=== PATIENT | female | born 1950 | race Caucasian/White ===

== ENCOUNTER → 2018-11-07 11:18 | Outpatient (CLI) | payer MEDICARE, OTHER, SELFPAY ==
--- NOTE | 2018-11-07 | DI.MG.S_ITS ---
BILATERAL DIGITAL SCREENING MAMMOGRAM 3D/2D WITH CAD: 11/07/2018 CLINICAL: Routine screening. Family history of breast cancer. Comparison is made to exams dated: 09/25/2017 mammogram, 04/08/2016 mammogram, and 04/06/2015 mammogram - [facility]. There are scattered fibroglandular elements in both breasts. Current study was also evaluated with a Computer Aided Detection (CAD) system. No significant masses, calcifications, or other findings are seen in either breast. There has been no significant interval change. IMPRESSION: NEGATIVE There is no mammographic evidence of malignancy. A 1 year screening mammogram is recommended. This exam was interpreted at Station ID: [id number]. NOTE: For mammograms, a report in lay terms will be sent to the patient. Approximately 15% of breast malignancies will not be visualized mammographically. In the management of a palpable breast mass, a negative mammogram must not discourage biopsy of a clinically suspicious lesion. Electronically Signed By: Mabel karimi/gregoria:11/09/2018 08:43:29 letter sent: Normal Exam ACR BI-RADS Category 1: Negative [id number]
== END ==
PROVIDERS: Family Provider Family Medicine; PCP Family Medicine; Visit Provider Family Medicine
DX: Z12.31 Encounter for screening mammogram for malignant neoplasm of breast (principal); Z80.3 Family history of malignant neoplasm of breast
CPT/HCPCS: 77063; 77067

== ENCOUNTER → 2018-12-31 12:05 | Outpatient (CLI) | payer MEDICARE, OTHER, SELFPAY ==
--- NOTE | 2018-12-31 | DI.RAD.S_ITS ---
PROCEDURE: XR CHEST 2V INDICATIONS: Cough TECHNIQUE: 2 views of the chest were acquired. COMPARISON: [facility], , CHEST 2 VIEW, 05/24/2016, 13:40. FINDINGS: Surgical changes and devices: None. Lungs and pleura: Hyperinflation consistent with COPD. There is a linear density left lung base, compared with a parenchyma scar. Lungs are otherwise clear. No pleural effusions or pneumothorax. Mediastinum: Mediastinal contours are normal. Heart size is normal. Bones and chest wall: No suspicious bony abnormalities. Soft tissues appear unremarkable. IMPRESSION: 1. No acute cardio pulmonary disease. 2. COPD and left basilar scarring. Dictated by: Carmen Richardson M.D. on 12/31/2018 at 15:05 Approved by: Carmen Richardson M.D. on 12/31/2018 at 15:07
== END ==
PROVIDERS: Family Provider Family Medicine; PCP Family Medicine; Visit Provider Family Medicine
DX: R05 Cough (principal); J44.9 Chronic obstructive pulmonary disease, unspecified; J98.4 Other disorders of lung
CPT/HCPCS: 71046

== ENCOUNTER 2019-01-11 07:20 | Day surgery (SDC) | payer MEDICARE, OTHER, SELFPAY ==
[2019-01-11] VITALS (9 sets, daily range): BP systolic 91–134; BP diastolic 57–84; PULSE 58–91; RESP 8–18; TEMP 36.2–36.7; O2SAT 93–97; BMI 23.6
--- NOTE | 2019-01-11 07:29 | PM.HP.1 ---
History of Present Illness Date Patient Seen: 01/11/19 Time Patient Seen: 07:29 Chief complaint: [address] SCREENING COLONOSCOPY Narrative: 68yo F for surveillance colonoscopy in high risk patient. Mother of CRC. No alarm symptoms. Last scope about 5 years ago, she thinks she was supposed to come back in 3 years. Patient History Medical History (Updated 01/11/19 @ 07:57 by Deyanira Gaytan RN) Cough (Acute) Surgical History Status post appendectomy Status post colonoscopy Meds Home Medications Medication Instructions Recorded Confirmed Type Vit A/Vit B1/Vit B2/Vit C/Vi #0 11/17/11 History (#HEXAVITAMIN) alprazolam 0.125 mg PO BID PRN 01/11/19 01/11/19 History citalopram 10 mg PO DAILY 01/11/19 01/11/19 History famciclovir 2,000 mg PO 4-6XD PRN 01/11/19 01/11/19 History hydrochlorothiazide 25 mg PO DAILY 01/11/19 01/11/19 History levothyroxine 88 mcg PO DAILY 01/11/19 01/11/19 History losartan 25 mg PO DAILY 01/11/19 01/11/19 History Allergies Allergy/AdvReac Type Severity Reaction Status Date / Time latex Allergy Severe Rash Verified 01/11/19 07:57 Sulfa (Sulfonamide Allergy Unknown Doesn't Verified 01/11/19 07:57 Antibiotics) remember hydromorphone AdvReac Severe N&V Verified 01/11/19 07:57 meperidine AdvReac Severe N&V Verified 01/11/19 07:57 Review of Systems Constitutional Constitutional: Reports as per HPI Exam Narrative Exam Narrative: AAO, NAD EOMI, MMM, no scleral icterus unlabored RA soft, nt/nd MAEW visible skin dry and intact Assessment & Plan (1) Screening for colorectal cancer: Current visit: Yes Status: Acute Assessment & Plan narrative: - plan for surveillance colonoscopy in a high risk patient --> all R/B/A discussed and pt wishes to proceed
[2019-01-11] MEDS: SODIUM CHLORIDE 0.9% 1,000 ML 200 ML IV (07:55)
[2019-01-11] MEDS: ONDANSETRON 4 MG/2 ML INJ IV (08:42)
[2019-01-11] MEDS: GLUCAGON,HUMAN RECOMBINANT 1 MG/ML VIAL IV (10:33)
[2019-01-11] MEDS: MIDAZOLAM 5 MG/5 ML VIAL IV (10:33)
[2019-01-11] MEDS: fentaNYL 250 MCG/5 ML INJ IV (10:34)
--- NOTE | 2019-01-11 10:37 | PM.OP.ENDO ---
Operative Date/Time/Diagnoses Date of procedure: 01/11/19 Time of procedure: 10:37 Pre-op diagnosis: History of polyps, family history of colon cancer Post-op diagnosis: same Procedure & Clinicians Study performed: Surveillance colonoscopy in high risk patient Same procedure as scheduled: Yes Indications: 68yo F wtih a family history of CRC and a personal history of polyps on her last scope 5 years ago. No concerning symptoms. Surgeon: Fabienne Galdamez Procedure Notes SCOAP/Timeout: 944 Procedure in detail: After obtaining informed consent, the patient was brought to the GI suite and placed in the left lateral decubitus position on the examination table. After placement of appropriate monitors, the patient was given incremental doses of Fentanyl and Versed until an appropriate level of sedation was achieved. A time out was held per SCOAP protocol. A digital rectal examination was performed and did not reveal any masses or obstructing lesions. The colonoscope was gently passed into the patient's anus and the entire colon navigated to the level of the cecum with some difficulty due to a very tortuous rectum. Prep was adequate. Once in the cecum, the scope was slowly withdrawn being sure to go before and beyond all mucosal folds and prominences as able to get a thorough examination. No masses or polyps are noted. Other findings include diverticulosis. At the level of the rectal vault, the scope was retroflexed and the internal anal canal was examined. The scope was straightened and air aspirated from the colon. The instrument was removed from the patient's body and the procedure was concluded. The patient was allowed to awaken from sedation without difficulty and taken to the post-anesthesia care unit in good condition. Scope withdrawal time: 7 min Sedation minutes: 50 Findings: diverticulosis (moderate- in sigmoid colon) Specimen(s): none sent Complications: none Impression: Moderate diverticulosis Recommendations: Colonscopy in 5 years (due to family history ) and High fiber diet Follow up: as needed Disposition: PACU
--- NOTE | 2019-01-11 11:07 | SUR.PHASEI ---
1107 To OPD, arouses easily to voice, tolerating PO well. Stable/assymptomatic. Report given.
--- NOTE | 2019-01-11 11:19 | SUR.PHASEII ---
pt arrived to phase II via stretcher. pt sitting up with eyes closed, easily arousable to voice when spoken to. pt brought to bedside, reviewed dc instructions with pt and pt . no further questions or concerns voiced. abd soft and pt denies any pain/discomfort. bed in lowest position and call light given to pt.
== END 2019-01-11 11:55 | disposition home or self-care (01) ==
PROVIDERS: Family Provider Family Medicine; PCP Family Medicine; Visit Provider Surgery
PROC: 0DJD8ZZ Inspection of Lower Intestinal Tract, Via Natural or Artificial Opening Endoscopic (ICD-10-PCS; CPT 45378; principal; 2019-01-11 08:45)
DX: Z86.010 Personal history of colon polyps (principal); Z80.0 Family history of malignant neoplasm of digestive organs
CPT/HCPCS: G0105; 99152; 99153; J1610; J2250; J2405; J3010

== ENCOUNTER → 2019-01-25 17:51 | Outpatient (ROUT) | payer MEDICARE, OTHER, SELFPAY | PROVIDERS: Family Provider Family Medicine; PCP Family Medicine; Visit Provider Nurse Practitioner Family | DX: N39.0 Urinary tract infection, site not specified (principal) | CPT/HCPCS: 87077; 87086 ==

== ENCOUNTER → 2020-01-27 11:40 | Outpatient (CLI) | payer MEDICARE, OTHER, SELFPAY ==
--- NOTE | 2020-01-27 | DI.US.S_ITS ---
PROCEDURE: US PERIPH VENOUS LOW EXTREM LT INDICATIONS: PAIN LEFT LOWER LEG TECHNIQUE: Real-time imaging, as well as color and pulse Doppler interrogation, were performed of the lower extremity deep veins from the inguinal ligament to the popliteal fossa. COMPARISON: None. FINDINGS: The common femoral, femoral and popliteal veins are normally compressible, and free of intraluminal thrombus. Color and pulse Doppler demonstrate normal phasic intraluminal flow. There is normal augmentation response to distal compression maneuver. IMPRESSION: Negative for deep venous thrombosis. Dictated by: Vikas Andrews M.D. on 01/27/2020 at 11:44 Approved by: Vikas Andrews M.D. on 01/27/2020 at 11:44
== END ==
PROVIDERS: Family Provider Family Medicine; PCP Family Medicine; Referring Provider Family Medicine; Visit Provider Family Medicine
DX: M79.662 Pain in left lower leg (principal)
CPT/HCPCS: 93971

== ENCOUNTER → 2020-03-04 13:13 | Outpatient (CLI) | payer MEDICARE, OTHER, SELFPAY ==
--- NOTE | 2020-03-04 | DI.MRI.S_ITS ---
PROCEDURE: MR KNEE LT WO CON INDICATIONS: Left knee pain TECHNIQUE: Noncontrast sagittal PD fast spin echo and T2 fast spin echo with fat saturation, sagittal 3-D FLASH with fat saturation; coronal T1 spin echo and PD fast spin echo with fat saturation, and axial PD fast spin echo with fat saturation through the knee. COMPARISON: None. FINDINGS: Image quality: Excellent. Menisci: Lateral meniscus intact. Medial meniscal tear, with circumferential appearance involving the posterior root, horn, body and anterior horn. There is abnormal signal extending to the undersurface of the posterior horn, and body. There is marked truncation of the free margin. Cruciate ligaments: Anterior cruciate ligament appears mildly thickened with T2 hyperintensity. Posterior cruciate ligament appears intact. Medial structures: The medial collateral ligament appears intact. Semimembranosus tendon appears intact. Visualized portions of the pes anserinus tendons appear normal. No abnormal bursal fluid. Lateral structures: The lateral collateral ligament intact. Biceps femoris tendon appears intact. Popliteus tendon grossly unremarkable. Iliotibial band appears intact. Anterior structures: Quadriceps tendon intact. Medial and lateral patellofemoral ligaments intact. Patellar tendon appears intact. Hoffa's fat pad unremarkable. Bones and cartilage: No focal marrow contusion or discrete low signal fracture line. Within the medial compartment, diffuse partial-thickness loss of the femoral and tibial articular cartilage without focal defect. Within the lateral compartment, mild diffuse partial-thickness loss of the femoral tibial articular cartilage. Within the patellofemoral compartment, near complete thickness loss of the cartilage overlying the lateral patellar facet in some areas. There is underlying subchondral cystic change and marrow edema. Joint space: Large joint effusion No Membreno's cyst. No specific evidence of intra-articular loose body. IMPRESSION: Circumferential tear of the medial meniscus, as detailed above. Mildly thickened anterior cruciate ligament suggestive of low-grade sprain versus early mucoid degeneration Tricompartmental osteoarthritis as above Large joint effusion Dictated by: Darío Sewell M.D. on 03/06/2020 at 10:05 Approved by: Darío Sewell M.D. on 03/06/2020 at 10:14
== END ==
PROVIDERS: Family Provider Family Medicine; PCP Family Medicine; Referring Provider Family Medicine; Visit Provider Family Medicine
DX: M25.562 Pain in left knee (principal); S83.242A Other tear of medial meniscus, current injury, left knee, initial encounter; M25.462 Effusion, left knee; M17.12 Unilateral primary osteoarthritis, left knee
CPT/HCPCS: 73721

== ENCOUNTER 2020-03-06 11:15 | Outpatient (RCR) | payer MEDICARE, OTHER, SELFPAY ==
--- NOTE | 2020-02-08 18:31 | PT.OIE ---
Current Diagnoses Achilles tendinitis, left leg (02/08/20) Pain in left leg (02/08/20) Past Medical History (Last Updated 01/11/19 @ 07:57 by Deyanira Gaytan RN) Cough (Acute) Past Surgical History (Last Reviewed 01/11/19 @ 07:29 by Fabienne Galdamez MD) Status post appendectomy Status post colonoscopy Visit Care Team Role Provider Type Dominguez Powell MD Family Provider Physician Primary Care Provider Specialty: [facility] Practice Address: [address] [place] [address], [facility] Email: [email or web address] GIBSON Merino Attending Provider Advanced Job Superintendent Referring Provider Specialty: [facility] Address: [address] [place] [address], [facility] Email: [email or web address] Initial Evaluation PT-OP-A Visit Information Start: 02/08/20 12:59 Freq: Status: Active Protocol: Document 02/08/20 13:45 [facility] (Rec: 02/08/20 13:52 [facility] [id number]) Out-Patient Physical Therapy Visit Information Visit Information Visit Type Initial Evaluation Visit Start Time 13:45 Visit Stop Time 14:30 Total Visit Minutes 45 Visit Number 1 Evaluation Information Evaluation Date 02/08/20 PT-OP-B Current Condition Start: 02/08/20 12:59 Freq: Status: Active Protocol: Document 02/08/20 13:45 [facility] (Rec: 02/08/20 13:52 [facility] [id number]) Current Condition History of Current Condition Onset Date December 2019 Current Complaints left sided calf pain now moving up to her hamstring History of Current Condition Melani reports for 3.5 years she has gone to a balance class/ exercise at the [employer] and this has helped her stay active. With the covid 19 pandemic she switched to a online class on [employer]. She started noticing occasional pain in her left calf. In the last month to six weeks pain has moved up to the back of her knee and hamstring. Her left leg recently then gave out on her going up the stairs . Walking increases her pain and she really enjoys walking. She started naproxin and heat and she started to feel a little better. Walking still increases her pain. Melani reports she did have a massage last friday and this seemed to help her for at least the rest of the day. Prior Treatments and Tests A ultrasound has been done to rule out DVT Current Functional Impairments (Reported) Functional Limitations- Mobility/Gait pain in the left calf increases with walking, she has pain walking more than 2 blocks. 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 PT-OP-C Subjective Start: 02/08/20 12:59 Freq: Status: Active Protocol: Document 02/08/20 18:04 [facility] (Rec: 02/08/20 18:31 [facility] [id number]) Patient Questionnaires Lower Extremity Functional Scale LEFS Score 50 LEFS Impairment 20 to 39% Impaired (Score 48- 62) OP-PT Pain Assessment Location left posterior calf and hamstring Pain Location Details pain in the posterior left calf and hamstring Intensity 7 Scale Used Numeric (0 - 10) Home Pain Medication Use Pain Medications Used Yes Home Pain Medication Frequency Naproxin PT-OP-F Manual Assessment Start: 02/08/20 12:59 Freq: Status: Active Protocol: Document 02/08/20 18:04 [facility] (Rec: 02/08/20 18:31 [facility] [id number]) Manual Assessments Soft Tissue Assessment Soft Tissue Mobility Assessment soft tissue tightness of the popliteus muscle on the left, medial hamstring tightness and adductor tightness PT-OP-J Posture/Palpation/Skin Start: 02/08/20 12:59 Freq: Status: Active Protocol: Document 02/08/20 18:04 [facility] (Rec: 02/08/20 18:31 [facility] [id number]) Posture Evaluation Position Standing Ankle/Foot Posture (L) Pronated Palpation Assessment Location semitendonosis, semimembrenosis Palpation Location tightness at the medial hamstring distal insertions Palpation Findings Soft Tissue Tightness,Muscle Guarding,Tenderness left popliteus muscle Palpation Location tenderness and muscle guarding at the left popliteus muscle Palpation Findings Edema,Soft Tissue Tightness, Muscle Guarding,Tenderness PT-OP-K Range of Motion Start: 02/08/20 12:59 Freq: Status: Active Protocol: Document 02/08/20 18:04 [facility] (Rec: 02/08/20 18:31 [facility] [id number]) Hip Goniometric Range of Motion Hip ROM Limitations Hip ROM Limitations Soft Tissue Tightness Comments limited SLR of the left LE due to pull on the hamstring muscles, no c/o nerve pain. Knee Goniometric Range of Motion Knee Left Knee ROM WFL Yes Patient Position Supine Knee ROM Limitations Comments pain at end range knee flexion PT-OP-Q Treatments Start: 02/08/20 12:59 Freq: Status: Active Protocol: Document 02/08/20 18:04 [facility] (Rec: 02/08/20 18:31 [facility] [id number]) Therapeutic Exercises Supine Exercises 3 Supine Exercise Name pt guided in a popliteus pin and stretch Comments pt to hold the popliteus region while everting / inverting her foot 2 Supine Exercise Name supine hamstring stretch with strap from a bend knee position Side bilateral Comments pt to also pump ankle after hamstring stretch 1 Supine Exercise Name long sitting calf stretch with strap Side bilateral Reps/Minutes hold 1-2 minutes Manual Therapy Treatment Soft Tissue Mobilization 1 Body Location left calf/popliteus region Mobilization Type Myofascial Release Intensity/Depth Moderate Body Position Prone PT-OP-T Assessment and Plan Start: 02/08/20 12:59 Freq: Status: Active Protocol: Document 02/08/20 18:04 [facility] (Rec: 02/08/20 18:31 [facility] [id number]) Physical Therapy Assessment Goals Three Impairment Melani reports increased pain in her left calf when walking 2 blocks or more Retirement Goal (LTG) Melani is able to return to walking without complaints of pain 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 LTG Duration 8 weeks Two Impairment Decreased flexibility of the left popliteus, medial hamstrings, iliopsoas Retirement Goal (LTG) Melani demonstrates improved flexibility of her left calf, hamstrings, and iliopsoas with physical therapy and a home stretching program LTG Duration 8 weeks One Impairment Pain from the posterior left calf and hamstring rated 7/10 Short Term Goal (STG) Melani reports a decrease in pain from 7/10 to 3-4/10 and she is able to roll over in bed at night without pain STG Duration 4 weeks Retirement Goal (LTG) Melani reports a overall reduction in pain from 7/10 to -1/10 LTG Duration 8 weeks Assessment Summary Assessment Melani presents to physical therapy today with a new onset of left sided calf and hamstring pain. She reports she has done the same exercise program at the [facility] for over three years. When Covid [address] she began doing a online exercise program on [employer]. She notes it was going fine until she started noticing calf tightness and pain and pain behind her knee. This has slowly worsend until December when her pain increased to involved the hamstring region as well. She reports at one time she felt her knee give out on her while walking down a set of stairs. Walking has become painful and increases her symptoms. She has had a ultrasound to rule out a DVT and this was negative. Melani reports she was given naproxin and advised to use heat which has helped some. She also saw a massage therapist and this helped for a day to give her relief. With examination today left left popliteus musculature in the posterior back compartment of her left leg is very tight and guarded. She is also tight on the left side in the hamstring and hip flexors as compared to the right. I started with some MFR over the popliteus today as well as a home program for stretching. Melani notes she doesn't have a specific stretching program she does at this time. Melani tolerated treatment well today and is a good candidate for PT Physical Therapy Plan Frequency and Duration Frequency of Treatment 2x/Week Duration of Treatment 8 Plan of Care Start Date 02/08/20 Plan of Care End Date 04/04/20 Therapeutic Interventions Therapeutic Interventions Home Exercise Program, Neuromuscular Re-education, Patient/Caregiver Education, Self-Care/Home Management,Soft Tissue Mobilization,Taping, Therapeutic Exercises Next Visit Focus/Plan Next Note Type Treatment Note Next Visit Plan review pts HEP, progress stretches and manual therapy techniques
--- NOTE | 2020-02-08 18:31 | PT.OPPOC ---
Physical, Occupational & Speech Therapy At [facility] Current Diagnoses Achilles tendinitis, left leg (02/08/20) Pain in left leg (02/08/20) Visit Care Team Role Provider Type Dominguez Powell MD Family Provider Physician Primary Care Provider Specialty: [facility] Practice Address: [address] [place] [address], [place], [address] Email: [email or web address] Merino Attending Provider Advanced Residential Program Director Referring Provider Specialty: [facility] Address: [address] [place] [address], [place], [address] Email: [email or web address] Plan Of Care PT-OP-T Assessment and Plan Start: 02/08/20 12:59 Freq: Status: Active Protocol: Document 02/08/20 18:04 [facility] (Rec: 02/08/20 18:31 [facility] [id number]) Physical Therapy Assessment Goals Three Impairment Melani reports increased pain in her left calf when walking 2 blocks or more Prison Goal (LTG) Melani is able to return to walking without complaints of pain 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 LTG Duration 8 weeks Two Impairment Decreased flexibility of the left popliteus, medial hamstrings, iliopsoas Prison Goal (LTG) Melani demonstrates improved flexibility of her left calf, hamstrings, and iliopsoas with physical therapy and a home stretching program LTG Duration 8 weeks One Impairment Pain from the posterior left calf and hamstring rated 7/10 Short Term Goal (STG) Melani reports a decrease in pain from 7/10 to 3-4/10 and she is able to roll over in bed at night without pain STG Duration 4 weeks Prison Goal (LTG) Melani reports a overall reduction in pain from 7/10 to -1/10 LTG Duration 8 weeks Assessment Summary Assessment Melani presents to physical therapy today with a new onset of left sided calf and hamstring pain. She reports she has done the same exercise program at the [facility] for over three years. When Covid 19 restrictions were put in [address] she began doing a online exercise program on [employer]. She notes it was going fine until she started noticing calf tightness and pain and pain behind her knee. This has slowly worsened until December when her pain increased to involved the hamstring region as well. She reports at one time she felt her knee give out on her while walking down a set of stairs. Walking has become painful and increases her symptoms. She has had a ultrasound to rule out a DVT and this was negative. Melani reports she was given Naproxin and advised to use heat which has helped some. She also saw a massage therapist and this helped for a day to give her relief. With examination today left left popliteus musculature in the posterior back compartment of her left leg is very tight and guarded. She is also tight on the left side in the hamstring and hip flexors as compared to the right. I started with some MFR over the popliteus today as well as a home program for stretching. Melani notes she doesn't have a specific stretching program she does at this time. Melani tolerated treatment well today and is a good candidate for PT Physical Therapy Plan Frequency and Duration Frequency of Treatment 2x/Week Duration of Treatment 8 Plan of Care Start Date 02/08/20 Plan of Care End Date 04/04/20 Therapeutic Interventions Therapeutic Interventions Home Exercise Program, Neuromuscular Re-education, Patient/Caregiver Education, Self-Care/Home Management,Soft Tissue Mobilization,Taping, Therapeutic Exercises Next Visit Focus/Plan Next Note Type Treatment Note Next Visit Plan review pts HEP, progress stretches and manual therapy techniques Plan of Care Dates Plan of Care Start Date 02/08/20 Plan of Care End Date 04/04/20 Electronically Signed by: Lisette Abbott, PT 02/08/20 2917 Please Sign and Return: I have reviewed this Plan of Care and certify that the skilled therapy services above are required to meet the patient?s needs. Physician Signature Date Printed Name and Credentials Clinical Instructor Signature Printed Name and Credentials
--- NOTE | 2020-02-11 15:15 | PT.OTN ---
Current Diagnoses Achilles tendinitis, left leg (02/11/20) Pain in left leg (02/11/20) Physical Therapy Treatment Note PT-OP-A Visit Information Start: 02/08/20 12:59 Freq: Status: Active Protocol: Document 02/11/20 14:32 SP (Rec: 02/11/20 15:24 SP [id number]) Out-Patient Physical Therapy Visit Information Visit Information Visit Type Treatment Note Visit Start Time 14:35 Visit Stop Time 15:15 Total Visit Minutes 40 Visit Number 2 Number of TRACK LAYER Visits 1 PT-OP-B Current Condition Start: 02/08/20 12:59 Freq: Status: Active Protocol: Document 02/08/20 13:45 [facility] (Rec: 02/08/20 13:52 [facility] [id number]) Current Condition History of Current Condition Onset Date December 2019 Current Complaints left sided calf pain now moving up to her hamstring History of Current Condition Melani reports for 3.5 years she has gone to a balance class/ exercise at the [employer] and this has helped her stay active. With the covid 19 pandemic she switched to a online class on [employer]. She started noticing occasional pain in her left calf. In the last month to six weeks pain has moved up to the back of her knee and hamstring. Her left leg recently then gave out on her going up the stairs . Walking increases her pain and she really enjoys walking. She started naproxin and heat and she started to feel a little better. Walking still increases her pain. Melani reports she did have a massage last friday and this seemed to help her for at least the rest of the day. Prior Treatments and Tests A ultrasound has been done to rule out DVT Current Functional Impairments (Reported) Functional Limitations- Mobility/Gait pain in the left calf increases with walking, she has pain walking more than 2 blocks. 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 PT-OP-C Subjective Start: 02/08/20 12:59 Freq: Status: Active Protocol: Document 02/11/20 14:32 SP (Rec: 02/11/20 15:24 SP [id number]) OP-PT Subjective Patient Comments Patient Comments Back of the L knee little better after last tx, sore but was very helpful. Want to go over HEP and be sure doing correctly. PT-OP-F Manual Assessment Start: 02/08/20 12:59 Freq: Status: Active Protocol: Document 02/08/20 18:04 [facility] (Rec: 02/08/20 18:31 [facility] [id number]) Manual Assessments Soft Tissue Assessment Soft Tissue Mobility Assessment soft tissue tightness of the popliteus muscle on the left, medial hamstring tightness and adductor tightness PT-OP-J Posture/Palpation/Skin Start: 02/08/20 12:59 Freq: Status: Active Protocol: Document 02/08/20 18:04 [facility] (Rec: 02/08/20 18:31 [facility] [id number]) Posture Evaluation Position Standing Ankle/Foot Posture (L) Pronated Palpation Assessment Location semitendonosis, semimembrenosis Palpation Location tightness at the medial hamstring distal insertions Palpation Findings Soft Tissue Tightness,Muscle Guarding,Tenderness left popliteus muscle Palpation Location tenderness and muscle guarding at the left popliteus muscle Palpation Findings Edema,Soft Tissue Tightness, Muscle Guarding,Tenderness PT-OP-K Range of Motion Start: 02/08/20 12:59 Freq: Status: Active Protocol: Document 02/08/20 18:04 [facility] (Rec: 02/08/20 18:31 [facility] [id number]) Hip Goniometric Range of Motion Hip ROM Limitations Hip ROM Limitations Soft Tissue Tightness Comments limited SLR of the left LE due to pull on the hamstring muscles, no c/o nerve pain. Knee Goniometric Range of Motion Knee Left Knee ROM WFL Yes Patient Position Supine Knee ROM Limitations Comments pain at end range knee flexion PT-OP-Q Treatments Start: 02/08/20 12:59 Freq: Status: Active Protocol: Document 02/11/20 14:32 SP (Rec: 02/11/20 15:24 SP [id number]) Therapeutic Exercises Supine Exercises 2 Supine Exercise Name supine hamstring stretch with strap from a bend knee position Side bilateral Reps/Minutes 30sec x 2, each side Comments pt to also pump ankle after hamstring stretch 1 Supine Exercise Name long sitting calf stretch with strap Side bilateral Reps/Minutes 30sec, each side Comments pt education for stretching and holding Prone Exercises Prone L knee flexion PROM pin Reps/Minutes x10 Sitting Exercises Popliteus self-STM Sitting Exercise Name pin popliteus w/ DF/PF MWM Reps/Minutes x10 Comments cued slow movement Popliteus stretch Sitting Exercise Name Popliteus stretch, hold knees together, vishal L foot Side left Reps/Minutes 30sec x 3 Manual Therapy Treatment Soft Tissue Mobilization 1 Body Location left medial upper calf/ popliteus region Mobilization Type Cross-Friction,Myofascial Release,Sustained Pressure, Other Intensity/Depth Moderate Body Position Prone Comments Pin MWM DF/ PF with self instruction see ex. 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 LTG Duration 8 weeks Two Impairment Decreased flexibility of the left popliteus, medial hamstrings, iliopsoas [facility] Goal (LTG) Melani demonstrates improved flexibility of her left calf, hamstrings, and iliopsoas with physical therapy and a home stretching program LTG Duration 8 weeks One Impairment Pain from the posterior left calf and hamstring rated 7/10 Short Term Goal (STG) Melani reports a decrease in pain from 7/10 to 3-4/10 and she is able to roll over in bed at night without pain STG Duration 4 weeks Administrative Supervisor Goal (LTG) Melani reports a overall reduction in pain from 7/10 to -1/10 LTG Duration 8 weeks Assessment Summary Assessment Reviewed HEP today to address pt questions. Education provided for safe performance of supine hamstring stretch ( with and without ankle AROM) and long sitting gastroc stretch with TB. Pt demonstrated good understanding. L gastrocnemius and popliteus dense and tender to palpate. Added MWM popliteus release seated/long sitting and stretch. Good response to manual and self instruction for decreased tightness and muscle release. Provided hand outs, see chart for set up/recall. Physical Therapy Plan Frequency and Duration Frequency of Treatment 2x/Week Duration of Treatment 8 Plan of Care Start Date 02/08/20 Plan of Care End Date 04/04/20 Therapeutic Interventions Therapeutic Interventions Home Exercise Program, Neuromuscular Re-education, Patient/Caregiver Education, Self-Care/Home Management,Soft Tissue Mobilization,Taping, Therapeutic Exercises Next Visit Focus/Plan Next Note Type Treatment Note Next Visit Plan Assess response to HEP and added MWM manual/ self popliteus. If doing well add eccentric heel raises stretch/ AROM. Continue per PT POC: progress stretches and manual therapy techniques
--- NOTE | 2020-02-15 11:10 | PT.OTN ---
Current Diagnoses Achilles tendinitis, left leg (02/15/20) Pain in left leg (02/15/20) Physical Therapy Treatment Note PT-OP-A Visit Information Start: 02/08/20 12:59 Freq: Status: Active Protocol: Document 02/15/20 09:52 HH (Rec: 02/15/20 11:10 HH [id number]) Out-Patient Physical Therapy Visit Information Visit Information Visit Type Treatment Note Visit Start Time 09:49 Visit Stop Time 10:30 Total Visit Minutes 41 Visit Number 3 Number of WINERY WORKER Visits 0 PT-OP-B Current Condition Start: 02/08/20 12:59 Freq: Status: Active Protocol: Document 02/08/20 13:45 [facility] (Rec: 02/08/20 13:52 [facility] [id number]) Current Condition History of Current Condition Onset Date December 2019 Current Complaints left sided calf pain now moving up to her hamstring History of Current Condition Melani reports for 3.5 years she has gone to a balance class/ exercise at the [employer] and this has helped her stay active. With the covid 19 pandemic she switched to a online class on [employer]. She started noticing occasional pain in her left calf. In the last month to six weeks pain has moved up to the back of her knee and hamstring. Her left leg recently then gave out on her going up the stairs . Walking increases her pain and she really enjoys walking. She started naproxin and heat and she started to feel a little better. Walking still increases her pain. Melani reports she did have a massage last friday and this seemed to help her for at least the rest of the day. Prior Treatments and Tests A ultrasound has been done to rule out DVT Current Functional Impairments (Reported) Functional Limitations- Mobility/Gait pain in the left calf increases with walking, she has pain walking more than 2 blocks. 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 PT-OP-C Subjective Start: 02/08/20 12:59 Freq: Status: Active Protocol: Document 02/15/20 09:52 HH (Rec: 02/15/20 11:10 HH [id number]) OP-PT Subjective Patient Comments Patient Comments Im doing okay. My back of the calf still hurts PT-OP-F Manual Assessment Start: 02/08/20 12:59 Freq: Status: Active Protocol: Document 02/08/20 18:04 [facility] (Rec: 02/08/20 18:31 [facility] [id number]) Manual Assessments Soft Tissue Assessment Soft Tissue Mobility Assessment soft tissue tightness of the popliteus muscle on the left, medial hamstring tightness and adductor tightness PT-OP-J Posture/Palpation/Skin Start: 02/08/20 12:59 Freq: Status: Active Protocol: Document 02/08/20 18:04 [facility] (Rec: 02/08/20 18:31 [facility] [id number]) Posture Evaluation Position Standing Ankle/Foot Posture (L) Pronated Palpation Assessment Location semitendonosis, semimembrenosis Palpation Location tightness at the medial hamstring distal insertions Palpation Findings Soft Tissue Tightness,Muscle Guarding,Tenderness left popliteus muscle Palpation Location tenderness and muscle guarding at the left popliteus muscle Palpation Findings Edema,Soft Tissue Tightness, Muscle Guarding,Tenderness PT-OP-K Range of Motion Start: 02/08/20 12:59 Freq: Status: Active Protocol: Document 02/08/20 18:04 [facility] (Rec: 02/08/20 18:31 [facility] [id number]) Hip Goniometric Range of Motion Hip ROM Limitations Hip ROM Limitations Soft Tissue Tightness Comments limited SLR of the left LE due to pull on the hamstring muscles, no c/o nerve pain. Knee Goniometric Range of Motion Knee Left Knee ROM WFL Yes Patient Position Supine Knee ROM Limitations Comments pain at end range knee flexion PT-OP-Q Treatments Start: 02/08/20 12:59 Freq: Status: Active Protocol: Document 02/15/20 09:52 HH (Rec: 02/15/20 11:10 HH [id number]) Therapeutic Exercises Supine Exercises hip ER Supine Exercise Name with bridging Side bilateral Equipment Used yellow band Reps/Minutes 8 x2 3 Supine Exercise Name pt guided in a popliteus pin and stretch Comments pt to hold the popliteus region while everting / inverting her foot 2 Supine Exercise Name supine hamstring stretch with strap from a bend knee position Side bilateral Reps/Minutes 30sec x 2, each side Comments pt to also pump ankle after hamstring stretch Prone Exercises HS curl Prone Exercise Name HS curl after manual therapy Side left Reps/Minutes 5 x2 Comments against PT resistance but no pain noted. Standing Exercises blue foam Standing Exercise Name ankle strategy Side bilateral Reps/Minutes 2 mins Comments with extended knees, ankle board Standing Exercise Name ankle strategy Side bilateral Reps/Minutes 2 mins Comments with extended knees, A/P weight shift Standing Exercise Name staggered stance Side bilateral Comments L to push off, no pain noted Manual Therapy Treatment Soft Tissue Mobilization 1 Body Location left medial upper calf/ popliteus region Mobilization Type Cross-Friction,Myofascial Release,Sustained Pressure, Other Intensity/Depth Moderate Body Position Prone Comments Pin MWM DF/ PF with self instruction see ex. 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 Duration 8 weeks Two Impairment Decreased flexibility of the left popliteus, medial hamstrings, iliopsoas Car Checker Goal (LTG) Melani demonstrates improved flexibility of her left calf, hamstrings, and iliopsoas with physical therapy and a home stretching program LTG Duration 8 weeks One Impairment Pain from the posterior left calf and hamstring rated 7/10 Short Term Goal (STG) Melani reports a decrease in pain from 7/10 to 3-4/10 and she is able to roll over in bed at night without pain STG Duration 4 weeks Car Checker Goal (LTG) Melani reports a overall reduction in pain from 7/10 to -1/10 LTG Duration 8 weeks Assessment Summary Assessment Pt came in with pain and soreness at back of L knee and calf especially push off during gait. After manual therapy and stability training , pt was able to amb with pain free. This PT noticed pt has L hip drop with RLE stance phase. Physical Therapy Plan Next Visit Focus/Plan Next Note Type Treatment Note Next Visit Plan Assess response to HEP and added MWM manual/ self popliteus. If doing well add eccentric heel raises stretch/ AROM. Continue per PT POC: progress stretches and manual therapy techniques
--- NOTE | 2020-02-22 10:33 | PT.OTN ---
Current Diagnoses Achilles tendinitis, left leg (02/22/20) Pain in left leg (02/22/20) Physical Therapy Treatment Note PT-OP-A Visit Information Start: 02/08/20 12:59 Freq: Status: Active Protocol: Document 02/22/20 09:51 SP (Rec: 02/22/20 11:52 SP [id number]) Out-Patient Physical Therapy Visit Information Visit Information Visit Type Treatment Note Visit Note POLICE OFFICER brought patient back late. Visit Start Time 09:51 Visit Stop Time 10:33 Total Visit Minutes 42 Visit Number 4 Number of POLICE OFFICER Visits 1 PT-OP-B Current Condition Start: 02/08/20 12:59 Freq: Status: Active Protocol: Document 02/08/20 13:45 [facility] (Rec: 02/08/20 13:52 [facility] [id number]) Current Condition History of Current Condition Onset Date December 2019 Current Complaints left sided calf pain now moving up to her hamstring History of Current Condition Melani reports for 3.5 years she has gone to a balance class/ exercise at the [employer] and this has helped her stay active. With the covid 19 pandemic she switched to a online class on [employer]. She started noticing occasional pain in her left calf. In the last month to six weeks pain has moved up to the back of her knee and hamstring. Her left leg recently then gave out on her going up the stairs . Walking increases her pain and she really enjoys walking. She started naproxin and heat and she started to feel a little better. Walking still increases her pain. Melani reports she did have a massage last friday and this seemed to help her for at least the rest of the day. Prior Treatments and Tests A ultrasound has been done to rule out DVT Current Functional Impairments (Reported) Functional Limitations- Mobility/Gait pain in the left calf increases with walking, she has pain walking more than 2 blocks. 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 PT-OP-C Subjective Start: 02/08/20 12:59 Freq: Status: Active Protocol: Document 02/22/20 09:51 SP (Rec: 02/22/20 11:52 SP [id number]) OP-PT Subjective Patient Comments Patient Comments Melani stated still having deep tightness posterior and anterior L knee almost like can't fit in her skin, specially after walking. Pt stated hasn't done self massage instructed in past. PT-OP-F Manual Assessment Start: 02/08/20 12:59 Freq: Status: Active Protocol: Document 02/08/20 18:04 [facility] (Rec: 02/08/20 18:31 [facility] [id number]) Manual Assessments Soft Tissue Assessment Soft Tissue Mobility Assessment soft tissue tightness of the popliteus muscle on the left, medial hamstring tightness and adductor tightness PT-OP-J Posture/Palpation/Skin Start: 02/08/20 12:59 Freq: Status: Active Protocol: Document 02/08/20 18:04 [facility] (Rec: 02/08/20 18:31 [facility] [id number]) Posture Evaluation Position Standing Ankle/Foot Posture (L) Pronated Palpation Assessment Location semitendonosis, semimembrenosis Palpation Location tightness at the medial hamstring distal insertions Palpation Findings Soft Tissue Tightness,Muscle Guarding,Tenderness left popliteus muscle Palpation Location tenderness and muscle guarding at the left popliteus muscle Palpation Findings Edema,Soft Tissue Tightness, Muscle Guarding,Tenderness PT-OP-K Range of Motion Start: 02/08/20 12:59 Freq: Status: Active Protocol: Document 02/08/20 18:04 [facility] (Rec: 02/08/20 18:31 [facility] [id number]) Hip Goniometric Range of Motion Hip ROM Limitations Hip ROM Limitations Soft Tissue Tightness Comments limited SLR of the left LE due to pull on the hamstring muscles, no c/o nerve pain. Knee Goniometric Range of Motion Knee Left Knee ROM WFL Yes Patient Position Supine Knee ROM Limitations Comments pain at end range knee flexion PT-OP-Q Treatments Start: 02/08/20 12:59 Freq: Status: Active Protocol: Document 02/22/20 09:51 SP (Rec: 02/22/20 11:52 SP [id number]) Cardio Equipment Recumbent Elliptical ([employer]) Duration (Minutes) 2 Resistance 1 Seat Position 2 Other stopped due to tightness posterior L knee and pressure anterior swelled Recumbent Bicycle Duration (Minutes) 3 Resistance 1 Seat Position 2 Other stopped due to tightness posterior L knee and pressure anterior swelled Therapeutic Exercises Supine Exercises SLR Reps/Minutes x5 Comments >5 reps increased A/ P L knee not tolerated tightness quad set Side left Reps/Minutes 5 sec hold x5 Comments >5 reps increased A/ P L knee not tolerated tightness Standing Exercises TKE Side left Resistance Lv 2 band Reps/Minutes 2x5 Comments cued slow pacing, R glut facilitation lateral band walk Reps/Minutes 6 ft Comments stopped to uncomfortable SLS Standing Exercise Name alternate each L Side bilateral Equipment Used //bars contact as needed Reps/Minutes 20 sec Comments cued elevated rib cage, glut faciltation A/P weight shift Standing Exercise Name staggered stance Side bilateral Comments L to push off, no pain noted easy Manual Therapy Treatment Soft Tissue Mobilization 1 Body Location left medial upper gastroc/ popliteus region, distal HS Mobilization Type Cross-Friction,Myofascial Release,Sustained Pressure, Other Intensity/Depth Moderate Body Position Prone Comments Pin MWM DF/ PF with self instruction see ex. 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 Duration 8 weeks Two Impairment Decreased flexibility of the left popliteus, medial hamstrings, iliopsoas [employer] Goal (LTG) Melani demonstrates improved flexibility of her left calf, hamstrings, and iliopsoas with physical therapy and a home stretching program LTG Duration 8 weeks One Impairment Pain from the posterior left calf and hamstring rated 7/10 Short Term Goal (STG) Melani reports a decrease in pain from 7/10 to 3-4/10 and she is able to roll over in bed at night without pain STG Duration 4 weeks [employer] Goal (LTG) Melani reports a overall reduction in pain from 7/10 to -1/10 LTG Duration 8 weeks Assessment Summary Assessment Pt tolerated manual STMs to prox gastroc, popliteus and distal HS med/ lat today not pain just noticeable not relaxed. Pt reported L anterior knee skin tightness and posterior knee muscular tightness during quad set, SLR > 5 reps, did not tolerated reclined bike assessment > 2-3 min so stopped with same tightness reports. Initiated knee stabilization exercises with good tolerance, no pain or not as noticable tightness. Cued proper L knee stabilizing alignment during TKE and SLS with upright posture. Discussed with PT patient's reponse to tx and activity. Physical Therapy Plan Frequency and Duration Frequency of Treatment 2x/Week Duration of Treatment 8 Plan of Care Start Date 02/08/20 Plan of Care End Date 04/04/20 Therapeutic Interventions Therapeutic Interventions Home Exercise Program, Neuromuscular Re-education, Patient/Caregiver Education, Self-Care/Home Management,Soft Tissue Mobilization,Taping, Therapeutic Exercises Next Visit Focus/Plan Next Note Type Treatment Note Next Visit Plan Assess response to HEP: added CC L knee staibilization. Next tx review self ball STMs if good response. If doing well add eccentric heel raises stretch/AROM. Continue per PT POC: progress stretches and manual therapy techniques
--- NOTE | 2020-02-25 10:36 | PT.OTN ---
Current Diagnoses Achilles tendinitis, left leg (02/25/20) Pain in left leg (02/25/20) Physical Therapy Treatment Note PT-OP-A Visit Information Start: 02/08/20 12:59 Freq: Status: Active Protocol: Document 02/25/20 09:51 TP (Rec: 02/25/20 11:41 TP [id number]) Out-Patient Physical Therapy Visit Information Visit Information Visit Type Treatment Note Visit Note Pt goes by Melani Student GENEVA Black supervised by GENEVA Anguiano Visit Start Time 09:51 Visit Stop Time 10:36 Total Visit Minutes 45 Visit Number 5 Number of BROADCAST OPERATIONS TECHNICIAN Visits 2 PT-OP-B Current Condition Start: 02/08/20 12:59 Freq: Status: Active Protocol: Document 02/08/20 13:45 AMH (Rec: 02/08/20 13:52 AMH [id number]) Current Condition History of Current Condition Onset Date December 2019 Current Complaints left sided calf pain now moving up to her hamstring History of Current Condition Melani reports for 3.5 years she has gone to a balance class/ exercise at the [employer] and this has helped her stay active. With the covid pandemic she switched to a online class on [employer]. She started noticing occasional pain in her left calf. In the last month to six weeks pain has moved up to the back of her knee and hamstring. Her left leg recently then gave out on her going up the stairs . Walking increases her pain and she really enjoys walking. She started naproxin and heat and she started to feel a little better. Walking still increases her pain. Melani reports she did have a massage last friday and this seemed to help her for at least the rest of the day. Prior Treatments and Tests A ultrasound has been done to rule out DVT Current Functional Impairments (Reported) Functional Limitations- Mobility/Gait pain in the left calf increases with walking, she has pain walking more than 2 blocks. 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 PT-OP-C Subjective Start: 02/08/20 12:59 Freq: Status: Active Protocol: Document 02/25/20 09:51 TP (Rec: 02/25/20 11:41 TP [id number]) OP-PT Subjective Patient Comments Patient Comments Sore after last tx. Massage therapist noted swelling in L LE after last tx, as a result of TKE with TB. 8/10 pain. Tried to stay off of leg and ice which decreased pain to 6/ 10. Massage therapist also noted possible atrophy in L gastroc. PT-OP-F Manual Assessment Start: 02/08/20 12:59 Freq: Status: Active Protocol: Document 02/08/20 18:04 [facility] (Rec: 02/08/20 18:31 [facility] [id number]) Manual Assessments Soft Tissue Assessment Soft Tissue Mobility Assessment soft tissue tightness of the popliteus muscle on the left, medial hamstring tightness and adductor tightness PT-OP-J Posture/Palpation/Skin Start: 02/08/20 12:59 Freq: Status: Active Protocol: Document 02/08/20 18:04 [facility] (Rec: 02/08/20 18:31 [facility] [id number]) Posture Evaluation Position Standing Ankle/Foot Posture (L) Pronated Palpation Assessment Location semitendonosis, semimembrenosis Palpation Location tightness at the medial hamstring distal insertions Palpation Findings Soft Tissue Tightness,Muscle Guarding,Tenderness left popliteus muscle Palpation Location tenderness and muscle guarding at the left popliteus muscle Palpation Findings Edema,Soft Tissue Tightness, Muscle Guarding,Tenderness PT-OP-K Range of Motion Start: 02/08/20 12:59 Freq: Status: Active Protocol: Document 02/08/20 18:04 [facility] (Rec: 02/08/20 18:31 [facility] [id number]) Hip Goniometric Range of Motion Hip ROM Limitations Hip ROM Limitations Soft Tissue Tightness Comments limited SLR of the left LE due to pull on the hamstring muscles, no c/o nerve pain. Knee Goniometric Range of Motion Knee Left Knee ROM WFL Yes Patient Position Supine Knee ROM Limitations Comments pain at end range knee flexion PT-OP-Q Treatments Start: 02/08/20 12:59 Freq: Status: Active Protocol: Document 02/25/20 09:51 TP (Rec: 02/25/20 11:41 TP [id number]) Therapeutic Exercises Supine Exercises SAQ Supine Exercise Name SAQ with bolster Side left Equipment Used bolster Reps/Minutes x10 Comments cues for slow concentric/ eccentic contraction SLR Reps/Minutes x5 Comments CUed slow muscular control quad set Side left Reps/Minutes 5 sec hold x10 Comments Cued slow control activating and releasing Sitting Exercises LAQ Sitting Exercise Name LAQ Side left Reps/Minutes x5 Comments cues for slow concentric/ eccentric contraction Manual Therapy Treatment Soft Tissue Mobilization 1 Body Location left lateral upper gastroc/ popliteus region, distal HS Mobilization Type Cross-Friction,Myofascial Release,Sustained Pressure, Other Intensity/Depth Moderate Body Position Prone Comments Pin MWM DF/ PF for soleus. Taping basket weave Body Location L ant knee medial/lateral Treatment Focus edema mgt Type of Tape Kinesio Tape Comments Pt has allergy to latex. No latex present in Kines[employer] tape. Education for removal after 48 hours unless falling off or irritating skin. Remove slowly. 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 LTG Duration 8 weeks Two Impairment Decreased flexibility of the left popliteus, medial hamstrings, iliopsoas Budget Examiner Goal (LTG) Melani demonstrates improved flexibility of her left calf, hamstrings, and iliopsoas with physical therapy and a home stretching program LTG Duration 8 weeks One Impairment Pain from the posterior left calf and hamstring rated 7/10 Short Term Goal (STG) Melani reports a decrease in pain from 7/10 to 3-4/10 and she is able to roll over in bed at night without pain STG Duration 4 weeks Budget Examiner Goal (LTG) Melani reports a overall reduction in pain from 7/10 to -1/10 LTG Duration 8 weeks Assessment Summary Assessment Pt pain and tightness increased in L knee since previous tx 3 days ago. This tx focused on superficial- moderate myofascial release and ther ex to relieve acute pain symptoms. Pt ankles significantly inverted when relaxed with L>R. Pain has moved from medial gastroc to lateral gastroc today, perhaps as a result of over use of the L peroneals and gastroc/ soleus complex due to ankle impairments. Pt noted h/o R ankle sprains. Address acute knee pain at this tx with progression to ther ex in next txs to address muscle imbalance in L LE to improve functional mobility. Physical Therapy Plan Frequency and Duration Frequency of Treatment 2x/Week Duration of Treatment 8 Plan of Care Start Date 02/08/20 Plan of Care End Date 04/04/20 Therapeutic Interventions Therapeutic Interventions Home Exercise Program, Neuromuscular Re-education, Patient/Caregiver Education, Self-Care/Home Management,Soft Tissue Mobilization,Taping, Therapeutic Exercises Next Visit Focus/Plan Next Note Type Treatment Note Next Visit Plan Will discuss with PT response to tx activities today and outcome communication [facility] physician stated would be doing after last tx. Assess response to previous tx and HEP. Review ball STM if tolerated and beneficial. Progress knee/calf strengthening exercises depending on patient response. Assess swelling in L knee.
--- NOTE | 2020-02-29 10:05 | PT.OTN ---
Addendum entered and electronically signed by Annmarie Solorzano, ACOUSTICS TEACHER 02/29/20 10:20: Pt continues to have L med/ lat swelling pockets but has gone down since last tx. Pain free since last fri and tolerating exercises given last tx. Original Note: Current Diagnoses Achilles tendinitis, left leg (02/29/20) Pain in left leg (02/29/20) Physical Therapy Treatment Note PT-OP-A Visit Information Start: 02/08/20 12:59 Freq: Status: Active Protocol: Document 02/29/20 09:07 SP (Rec: 02/29/20 10:20 SP [id number]) Out-Patient Physical Therapy Visit Information Visit Information Visit Type Treatment Note Visit Note Pt goes by Melani Pt 7 min late today. Visit Start Time 09:07 Visit Stop Time 10:05 Total Visit Minutes 58 Visit Number 6 Number of ACOUSTICS TEACHER Visits 3 PT-OP-B Current Condition Start: 02/08/20 12:59 Freq: Status: Active Protocol: Document 02/08/20 13:45 AMH (Rec: 02/08/20 13:52 AMH [id number]) Current Condition History of Current Condition Onset Date December 2019 Current Complaints left sided calf pain now moving up to her hamstring History of Current Condition Melani reports for 3.5 years she has gone to a balance class/ exercise at the [employer] [place] and this has helped her stay active. With the covid pandemic she switched to a online class on [employer]. She started noticing occasional pain in her left calf. In the last month to six weeks pain has moved up to the back of her knee and hamstring. Her left leg recently then gave out on her going up the stairs . Walking increases her pain and she really enjoys walking. She started naproxin and heat and she started to feel a little better. Walking still increases her pain. Melani reports she did have a massage last friday and this seemed to help her for at least the rest of the day. Prior Treatments and Tests A ultrasound has been done to rule out DVT Current Functional Impairments (Reported) Functional Limitations- Mobility/Gait pain in the left calf increases with walking, she has pain walking more than 2 blocks. 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 PT-OP-C Subjective Start: 02/08/20 12:59 Freq: Status: Active Protocol: Document 02/29/20 09:07 SP (Rec: 02/29/20 10:20 SP [id number]) OP-PT Subjective Patient Comments Patient Comments Pt stated the L knee taping helped alot but only lasted 1 day, pain free since last tx. Pt would like to see how taped to do at home if needed and see if applied correctly next tx. Pt feels over whelmed with what HEP given should be doing, review/ consolidate today. PT-OP-F Manual Assessment Start: 02/08/20 12:59 Freq: Status: Active Protocol: Document 02/08/20 18:04 AMH (Rec: 02/08/20 18:31 AMH [id number]) Manual Assessments Soft Tissue Assessment Soft Tissue Mobility Assessment soft tissue tightness of the popliteus muscle on the left, medial hamstring tightness and adductor tightness PT-OP-J Posture/Palpation/Skin Start: 02/08/20 12:59 Freq: Status: Active Protocol: Document 02/08/20 18:04 AMH (Rec: 02/08/20 18:31 AMH [id number]) Posture Evaluation Position Standing Ankle/Foot Posture (L) Pronated Palpation Assessment Location semitendonosis, semimembrenosis Palpation Location tightness at the medial hamstring distal insertions Palpation Findings Soft Tissue Tightness,Muscle Guarding,Tenderness left popliteus muscle Palpation Location tenderness and muscle guarding at the left popliteus muscle Palpation Findings Edema,Soft Tissue Tightness, Muscle Guarding,Tenderness PT-OP-K Range of Motion Start: 02/08/20 12:59 Freq: Status: Active Protocol: Document 02/08/20 18:04 AMH (Rec: 02/08/20 18:31 [facility] [id number]) Hip Goniometric Range of Motion Hip ROM Limitations Hip ROM Limitations Soft Tissue Tightness Comments limited SLR of the left LE due to pull on the hamstring muscles, no c/o nerve pain. Knee Goniometric Range of Motion Knee Left Knee ROM WFL Yes Patient Position Supine Knee ROM Limitations Comments pain at end range knee flexion PT-OP-Q Treatments Start: 02/08/20 12:59 Freq: Status: Active Protocol: Document 02/29/20 09:07 SP (Rec: 02/29/20 10:20 SP [id number]) Therapeutic Exercises Supine Exercises piriformis/glut stretch Supine Exercise Name fig 4 Side bilateral Reps/Minutes 30 x2 SAQ Supine Exercise Name SAQ with bolster Side left Equipment Used bolster Reps/Minutes x10 Comments cues for slow concentric/ eccentic contraction SLR Reps/Minutes x5 Comments CUed slow muscular control quad set Side left Reps/Minutes 5 sec hold x10 Comments Cued slow control activating and releasing Sitting Exercises HS/calf stretch on chair Side left Reps/Minutes 30 sec x3 glut/piriformis stretch Sitting Exercise Name add HEP Side bilateral Reps/Minutes 30 x2 LAQ Sitting Exercise Name LAQ Side left Reps/Minutes x5 Comments cues for slow concentric/ eccentric contraction Popliteus self-STM Sitting Exercise Name if needed Comments discussed as needed for posterior knee tightness Popliteus stretch Sitting Exercise Name Popliteus stretch, hold knees together, vishal L foot Side left Reps/Minutes 30sec x 3 Comments cued knees together and foot vishal contact floor if helpful stretch Standing Exercises SLS Standing Exercise Name alternate each L Side bilateral Equipment Used contact raised table Reps/Minutes 30 sec Comments cued elevated rib cage, glut faciltation Manual Therapy Treatment Taping basket weave Body Location L ant knee medial inferior/ lateral superior patella Treatment Focus edema mgt Type of Tape Kinesio Tape Comments Pt has allergy to latex. No latex present in [employer] tape. Education for removal after 48 hours unless falling off or irritating skin. Remove slowly. 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 LTG Duration 8 weeks Two Impairment Decreased flexibility of the left popliteus, medial hamstrings, iliopsoas Auto Research Engineer Goal (LTG) Melani demonstrates improved flexibility of her left calf, hamstrings, and iliopsoas with physical therapy and a home stretching program LTG Duration 8 weeks One Impairment Pain from the posterior left calf and hamstring rated 7/10 Short Term Goal (STG) Melani reports a decrease in pain from 7/10 to 3-4/10 and she is able to roll over in bed at night without pain STG Duration 4 weeks Auto Research Engineer Goal (LTG) Melani reports a overall reduction in pain from 7/10 to -1/10 LTG Duration 8 weeks Assessment Summary Assessment Pt responded well to K taping edema mgt basket weave over L med/ lat knee, pain free rest of day and when tape fell off through the weekend. Manual in long sitting with education how to reapply at home if needed between txs. Reviewed HEP, consolidated to exercises to performed today to be completed at home. Cuing required for set up and proper form to facilitate strengthening and flexibility with improvement in demonstration. Pain free end of tx. Pt stated feels more confident. Physical Therapy Plan Frequency and Duration Frequency of Treatment 2x/Week Duration of Treatment 8 Plan of Care Start Date 02/08/20 Plan of Care End Date 04/04/20 Therapeutic Interventions Therapeutic Interventions Home Exercise Program, Neuromuscular Re-education, Patient/Caregiver Education, Self-Care/Home Management,Soft Tissue Mobilization,Taping, Therapeutic Exercises Next Visit Focus/Plan Next Note Type Treatment Note Next Visit Plan Discussed with PT response to past 2 txs with activities, PT will communicate with physician L knee swelling, response to past tx and if further assessment warranted Assess swelling in L knee and response to consolidated HEP last tx. Continue: Review ball STM if tolerated as needed. Progress knee/calf close chained strengthening exercises depending on patient response.
--- NOTE | 2020-03-01 15:49 | PT.OPPOC ---
Physical, Occupational & Speech Therapy At [facility] Current Diagnoses Achilles tendinitis, left leg (02/29/20) Pain in left leg (02/29/20) Visit Care Team Role Provider Type Dominguez Powell MD Family Provider Physician Primary Care Provider Specialty: [facility] Address: [address] [place] [address], [place], [address] Email: [email or web address] GIBSON Merino Attending Provider Advanced Linoleum Printer Referring Provider Specialty: [facility] Address: [address] [place] [address], [place], [address] Email: [email or web address] Plan Of Care PT-OP-T Assessment and Plan Start: 02/08/20 12:59 Freq: Status: Active Protocol: Document 03/01/20 15:35 [facility] (Rec: 03/01/20 15:49 [facility] [id number]) Physical Therapy Assessment Goals Three Impairment Melani reports increased pain in her left calf when walking 2 blocks or more Mcc Goal (LTG) Melani is able to return to walking without complaints of pain 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 Duration 8 weeks Two Impairment Decreased flexibility of the left popliteus, medial hamstrings, iliopsoas Mcc Goal (LTG) Melani demonstrates improved flexibility of her left calf, hamstrings, and iliopsoas with physical therapy and a home stretching program LTG Duration 8 weeks One Impairment Pain from the posterior left calf and hamstring rated 7/10 Short Term Goal (STG) Melani reports a decrease in pain from 7/10 to 3-4/10 and she is able to roll over in bed at night without pain STG Duration 4 weeks Mcc Goal (LTG) Melani reports a overall reduction in pain from 7/10 to -1/10 LTG Duration 8 weeks Progress Towards Goals Progress Towards Goals Slow Progress due to Activity Tolerance Assessment Summary Assessment Pt continues to have complaints of left sided calf pain but is also complaining of left knee tightness and pain. This seems to increase with stretches and any knee exercises. Melani responds well to K taping for edema and support. I am wondering if there is a ligamentous injury that is causing her pain. Melani has been seen for 6 visits in PT and has not shown improvement of her symptoms except for with the tape. She may benefit from further work up/diagnostic tests on her knee. Thank you. Plan of Care Dates Plan of Care Start Date 02/08/20 Plan of Care End Date 04/04/20 Electronically Signed by: Lisette Abbott, PT 03/01/20 [id number] Please Sign and Return: I have reviewed this Plan of Care and certify that the skilled therapy services above are required to meet the patient?s needs. Physician Signature Date Printed Name and Credentials Clinical Instructor Signature Printed Name and Credentials
--- NOTE | 2020-03-01 15:50 | PT.OPPN ---
Current Diagnoses Achilles tendinitis, left leg (02/29/20) Pain in left leg (02/29/20) Physical Therapy Progress Note PT-OP-A Visit Information Start: 02/08/20 12:59 Freq: Status: Active Protocol: Document 02/29/20 09:07 SP (Rec: 02/29/20 10:20 SP [id number]) Out-Patient Physical Therapy Visit Information Visit Information Visit Type Treatment Note Visit Note Pt goes by Melani Pt 7 min late today. Visit Start Time 09:07 Visit Stop Time 10:05 Total Visit Minutes 58 Visit Number 6 Number of MEASUREMENT OPERATOR Visits 3 PT-OP-B Current Condition Start: 02/08/20 12:59 Freq: Status: Active Protocol: Document 02/08/20 13:45 [facility] (Rec: 02/08/20 13:52 [facility] [id number]) Current Condition History of Current Condition Onset Date December 2019 Current Complaints left sided calf pain now moving up to her hamstring History of Current Condition Melani reports for 3.5 years she has gone to a balance class/ exercise at the [employer] and this has helped her stay active. With the covid 19 pandemic she switched to a online class on [employer]. She started noticing occasional pain in her left calf. In the last month to six weeks pain has moved up to the back of her knee and hamstring. Her left leg recently then gave out on her going up the stairs . Walking increases her pain and she really enjoys walking. She started naproxin and heat and she started to feel a little better. Walking still increases her pain. Melani reports she did have a massage last friday and this seemed to help her for at least the rest of the day. Prior Treatments and Tests A ultrasound has been done to rule out DVT Current Functional Impairments (Reported) Functional Limitations- Mobility/Gait pain in the left calf increases with walking, she has pain walking more than 2 blocks. 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 PT-OP-C Subjective Start: 02/08/20 12:59 Freq: Status: Active Protocol: Document 02/29/20 09:07 SP (Rec: 02/29/20 10:20 SP [id number]) OP-PT Subjective Patient Comments Patient Comments Pt stated the L knee taping helped alot but only lasted 1 day, pain free since last tx. Pt would like to see how taped to do at home if needed and see if applied correctly next tx. Pt feels over whelmed with what HEP given should be doing, review/ consolidate today. PT-OP-F Manual Assessment Start: 02/08/20 12:59 Freq: Status: Active Protocol: Document 02/08/20 18:04 [facility] (Rec: 02/08/20 18:31 [facility] [id number]) Manual Assessments Soft Tissue Assessment Soft Tissue Mobility Assessment soft tissue tightness of the popliteus muscle on the left, medial hamstring tightness and adductor tightness PT-OP-J Posture/Palpation/Skin Start: 02/08/20 12:59 Freq: Status: Active Protocol: Document 02/08/20 18:04 [facility] (Rec: 02/08/20 18:31 [facility] [id number]) Posture Evaluation Position Standing Ankle/Foot Posture (L) Pronated Palpation Assessment Location semitendonosis, semimembrenosis Palpation Location tightness at the medial hamstring distal insertions Palpation Findings Soft Tissue Tightness,Muscle Guarding,Tenderness left popliteus muscle Palpation Location tenderness and muscle guarding at the left popliteus muscle Palpation Findings Edema,Soft Tissue Tightness, Muscle Guarding,Tenderness PT-OP-K Range of Motion Start: 02/08/20 12:59 Freq: Status: Active Protocol: Document 02/08/20 18:04 [facility] (Rec: 02/08/20 18:31 [facility] [id number]) Hip Goniometric Range of Motion Hip ROM Limitations Hip ROM Limitations Soft Tissue Tightness Comments limited SLR of the left LE due to pull on the hamstring muscles, no c/o nerve pain. 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 LTG Duration 8 weeks Two Impairment Decreased flexibility of the left popliteus, medial hamstrings, iliopsoas Sticker Machine Operator Goal (LTG) Melani demonstrates improved flexibility of her left calf, hamstrings, and iliopsoas with physical therapy and a home stretching program LTG Duration 8 weeks One Impairment Pain from the posterior left calf and hamstring rated 7/10 Short Term Goal (STG) Melani reports a decrease in pain from 7/10 to 3-4/10 and she is able to roll over in bed at night without pain STG Duration 4 weeks Shelter Goal (LTG) Melani reports a overall reduction in pain from 7/10 to -1/10 LTG Duration 8 weeks Progress Towards Goals Progress Towards Goals Slow Progress due to Activity Tolerance Assessment Summary Assessment Pt continues to have complaints of left sided calf pain but is also complaining of left knee tightness and pain. This seems to increase with stretches and any knee exercises. Melani responds well to K taping for edema and support. I am wondering if there is a ligamentous injury that is causing her pain. Melani has been seen for 6 visits so far and has not shown improvement of her symptoms except for with the tape. She may benefit from further work up on her knee.
--- NOTE | 2020-03-03 11:20 | PT.OTN ---
Current Diagnoses Achilles tendinitis, left leg (03/03/20) Pain in left leg (03/03/20) Physical Therapy Treatment Note PT-OP-A Visit Information Start: 02/08/20 12:59 Freq: Status: Active Protocol: Document 03/03/20 10:34 SP (Rec: 03/03/20 11:58 SP [id number]) Out-Patient Physical Therapy Visit Information Visit Information Visit Type Treatment Note Visit Start Time 10:34 Visit Stop Time 11:20 Total Visit Minutes 46 Visit Number 7 Number of PACKAGING ASSOCIATE Visits 4 PT-OP-B Current Condition Start: 02/08/20 12:59 Freq: Status: Active Protocol: Document 02/08/20 13:45 [facility] (Rec: 02/08/20 13:52 [facility] [id number]) Current Condition History of Current Condition Onset Date December 2019 Current Complaints left sided calf pain now moving up to her hamstring History of Current Condition Melani reports for 3.5 years she has gone to a balance class/ exercise at the [employer] and this has helped her stay active. With the covid 19 pandemic she switched to a online class on [employer]. She started noticing occasional pain in her left calf. In the last month to six weeks pain has moved up to the back of her knee and hamstring. Her left leg recently then gave out on her going up the stairs . Walking increases her pain and she really enjoys walking. She started naproxin and heat and she started to feel a little better. Walking still increases her pain. Melani reports she did have a massage last friday and this seemed to help her for at least the rest of the day. Prior Treatments and Tests A ultrasound has been done to rule out DVT Current Functional Impairments (Reported) Functional Limitations- Mobility/Gait pain in the left calf increases with walking, she has pain walking more than 2 blocks. 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 PT-OP-C Subjective Start: 02/08/20 12:59 Freq: Status: Active Protocol: Document 03/03/20 10:34 SP (Rec: 03/03/20 11:58 SP [id number]) OP-PT Subjective Patient Comments Patient Comments Pt stated alot of L upper to mid calf tightness today than yesterday. Yesterday I did my laying/seated exercises, not stretches, before my walk. There was a little incline end of walk yesterday and noted L calf more tight at end walk than when started so did some stretching and MWM (grasp calf DF/PF movement) and no improvement little more irritated. I am frustrated calf isn't loosening up but L knee swelling is improving with basket weave Kinesiotaping and give L knee more stable support. Pt stated I am scheduled for a MRI of L leg tomorrow and hoping will give some answers. 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 PT-OP-F Manual Assessment Start: 02/08/20 12:59 Freq: Status: Active Protocol: Document 02/08/20 18:04 [facility] (Rec: 02/08/20 18:31 [facility] [id number]) Manual Assessments Soft Tissue Assessment Soft Tissue Mobility Assessment soft tissue tightness of the popliteus muscle on the left, medial hamstring tightness and adductor tightness PT-OP-J Posture/Palpation/Skin Start: 02/08/20 12:59 Freq: Status: Active Protocol: Document 02/08/20 18:04 [facility] (Rec: 02/08/20 18:31 [facility] [id number]) Posture Evaluation Position Standing Ankle/Foot Posture (L) Pronated Palpation Assessment Location semitendonosis, semimembrenosis Palpation Location tightness at the medial hamstring distal insertions Palpation Findings Soft Tissue Tightness,Muscle Guarding,Tenderness left popliteus muscle Palpation Location tenderness and muscle guarding at the left popliteus muscle Palpation Findings Edema,Soft Tissue Tightness, Muscle Guarding,Tenderness PT-OP-K Range of Motion Start: 02/08/20 12:59 Freq: Status: Active Protocol: Document 02/08/20 18:04 [facility] (Rec: 02/08/20 18:31 [facility] [id number]) Hip Goniometric Range of Motion Hip ROM Limitations Hip ROM Limitations Soft Tissue Tightness Comments limited SLR of the left LE due to pull on the hamstring muscles, no c/o nerve pain. Knee Goniometric Range of Motion Knee Left Knee ROM WFL Yes Patient Position Supine Knee ROM Limitations Comments pain at end range knee flexion PT-OP-Q Treatments Start: 02/08/20 12:59 Freq: Status: Active Protocol: Document 03/03/20 10:34 SP (Rec: 03/03/20 11:58 SP [id number]) Therapeutic Exercises Supine Exercises ankle circles Reps/Minutes x5 Comments HEP review SAQ Reps/Minutes 5 Comments HEP review SLR Reps/Minutes x5 Comments HEP review quad set Reps/Minutes 5 sec x2 Comments HEP reveiw Sidelying Exercises clamshell Side bilateral Reps/Minutes 2x5 Comments stopped due to caused discomfort in opposite LE adductor/ hip flexor, disco hip abde Sidelying Exercise Name ABD Side left Reps/Minutes x10 Comments better tolerance than clamshell, good lateral muscle challenge, no pain Sitting Exercises HS/calf stretch on chair Side left Reps/Minutes 30 sec Comments ankle relaxed so no calf stretch ok glut/piriformis stretch Side left Reps/Minutes 30 Comments HEP review LAQ Sitting Exercise Name LAQ Side left Reps/Minutes x5 Comments cues for slow concentric/ eccentric contraction Standing Exercises calf stretch Standing Exercise Name on floor and LORENZO (pt stated PT give previous tx) Reps/Minutes 30 sec Comments had increased pain in calf so stopped and instructed to discontinue hip abd Standing Exercise Name add HEP Side bilateral Equipment Used table contact for balance Reps/Minutes x10 SLS Standing Exercise Name alternate each LE Side bilateral Equipment Used contact raised table Reps/Minutes 30 sec Comments cued elevated rib cage, glut faciltation Manual Therapy Treatment Taping basket weave Body Location L ant knee medial inferior/ lateral superior patella Treatment Focus edema mgt Type of Tape Kinesio Tape Comments Pt has allergy to latex. No latex present in Kinesio tape. Education for removal after 48 hours unless falling off or irritating skin. Manual 1/2 areas, instruction through self 2nd area application. 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 LTG Duration 8 weeks Two Impairment Decreased flexibility of the left popliteus, medial hamstrings, iliopsoas Nursing Home Goal (LTG) Melani demonstrates improved flexibility of her left calf, hamstrings, and iliopsoas with physical therapy and a home stretching program LTG Duration 8 weeks One Impairment Pain from the posterior left calf and hamstring rated 7/10 Short Term Goal (STG) Melani reports a decrease in pain from 7/10 to 3-4/10 and she is able to roll over in bed at night without pain STG Duration 4 weeks Fundraising Specialist Goal (LTG) Melani reports a overall reduction in pain from 7/10 to -1/10 LTG Duration 8 weeks Assessment Summary Assessment Pt continues to have complaints of left sided calf pain. This seems to increase with stretches better tolerant of exercises did today. Instructed to stop all stretches at this time and exercises with tolerance as performed today. Melani responds well to K taping for edema and support. Added hip abd standing and sidelying with good hip abd response focus and no pain. Physical Therapy Plan Frequency and Duration Frequency of Treatment 2x/Week Duration of Treatment 8 Plan of Care Start Date 02/08/20 Plan of Care End Date 04/04/20 Therapeutic Interventions Therapeutic Interventions Home Exercise Program, Neuromuscular Re-education, Patient/Caregiver Education, Self-Care/Home Management,Soft Tissue Mobilization,Taping, Therapeutic Exercises Next Visit Focus/Plan Next Note Type Treatment Note Next Visit Plan Assess swelling in L knee and response to consolidated HEP last tx, with no stretching massage to L calf. Continue: Progress knee/calf close chained strengthening exercises depending on patient response.
--- NOTE | 2020-03-06 12:13 | PT.OTN ---
Current Diagnoses Achilles tendinitis, left leg (03/06/20) Pain in left leg (03/06/20) Physical Therapy Treatment Note PT-OP-A Visit Information Start: 02/08/20 12:59 Freq: Status: Active Protocol: Document 03/06/20 11:20 HH (Rec: 03/06/20 12:13 HH [id number]) Out-Patient Physical Therapy Visit Information Visit Information Visit Type Treatment Note Visit Note Pt had a MRI on L knee but pending for result. Visit Start Time 11:16 Visit Stop Time 12:00 Total Visit Minutes 44 Visit Number 8 Number of ASH PIT WORKER Visits 0 PT-OP-B Current Condition Start: 02/08/20 12:59 Freq: Status: Active Protocol: Document 02/08/20 13:45 [facility] (Rec: 02/08/20 13:52 AMH [id number]) Current Condition History of Current Condition Onset Date December 2019 Current Complaints left sided calf pain now moving up to her hamstring History of Current Condition Melani reports for 3.5 years she has gone to a balance class/ exercise at the [employer] and this has helped her stay active. With the covid 19 pandemic she switched to a online class on [employer]. She started noticing occasional pain in her left calf. In the last month to six weeks pain has moved up to the back of her knee and hamstring. Her left leg recently then gave out on her going up the stairs . Walking increases her pain and she really enjoys walking. She started naproxin and heat and she started to feel a little better. Walking still increases her pain. Melani reports she did have a massage last friday and this seemed to help her for at least the rest of the day. Prior Treatments and Tests A ultrasound has been done to rule out DVT Current Functional Impairments (Reported) Functional Limitations- Mobility/Gait pain in the left calf increases with walking, she has pain walking more than 2 blocks. 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 PT-OP-C Subjective Start: 02/08/20 12:59 Freq: Status: Active Protocol: Document 03/06/20 11:20 HH (Rec: 03/06/20 12:13 HH [id number]) OP-PT Subjective Patient Comments Patient Comments It has been around the same and i didnt do much stretching cause it bothers me. Patient Reported Progress Same PT-OP-F Manual Assessment Start: 02/08/20 12:59 Freq: Status: Active Protocol: Document 02/08/20 18:04 [facility] (Rec: 02/08/20 18:31 [facility] [id number]) Manual Assessments Soft Tissue Assessment Soft Tissue Mobility Assessment soft tissue tightness of the popliteus muscle on the left, medial hamstring tightness and adductor tightness PT-OP-J Posture/Palpation/Skin Start: 02/08/20 12:59 Freq: Status: Active Protocol: Document 02/08/20 18:04 [facility] (Rec: 02/08/20 18:31 [facility] [id number]) Posture Evaluation Position Standing Ankle/Foot Posture (L) Pronated Palpation Assessment Location semitendonosis, semimembrenosis Palpation Location tightness at the medial hamstring distal insertions Palpation Findings Soft Tissue Tightness,Muscle Guarding,Tenderness left popliteus muscle Palpation Location tenderness and muscle guarding at the left popliteus muscle Palpation Findings Edema,Soft Tissue Tightness, Muscle Guarding,Tenderness PT-OP-K Range of Motion Start: 02/08/20 12:59 Freq: Status: Active Protocol: Document 02/08/20 18:04 [facility] (Rec: 02/08/20 18:31 [facility] [id number]) Hip Goniometric Range of Motion Hip ROM Limitations Hip ROM Limitations Soft Tissue Tightness Comments limited SLR of the left LE due to pull on the hamstring muscles, no c/o nerve pain. Knee Goniometric Range of Motion Knee Left Knee ROM WFL Yes Patient Position Supine Knee ROM Limitations Comments pain at end range knee flexion PT-OP-Q Treatments Start: 02/08/20 12:59 Freq: Status: Active Protocol: Document 03/06/20 11:20 HH (Rec: 03/06/20 12:13 HH [id number]) Therapeutic Exercises Standing Exercises Stance phase Standing Exercise Name stance phase on L Side left Equipment Used level 1 band at L knee Reps/Minutes 10 x2 Comments cues on extended L knee during stance phase. standing TKE Side left Equipment Used level 1 band at L knee Reps/Minutes 10 x 2 Comments cues on isolated knee extension Manual Therapy Treatment Joint Mobilizations MWM Joint L knee Grade II Body Position Supine Reps/Duration 2 mins Comments knee flexion with IR Manual Traction L knee distraction. Details distal then proximal axial distraction Body Position Supine Reps/Duration 8 mins Comments pt felt relieved with distraction. 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 LTG Duration 8 weeks Two Impairment Decreased flexibility of the left popliteus, medial hamstrings, iliopsoas Structural Metal Worker Goal (LTG) Melani demonstrates improved flexibility of her left calf, hamstrings, and iliopsoas with physical therapy and a home stretching program LTG Duration 8 weeks One Impairment Pain from the posterior left calf and hamstring rated 7/10 Short Term Goal (STG) Melani reports a decrease in pain from 7/10 to 3-4/10 and she is able to roll over in bed at night without pain STG Duration 4 weeks Residential Goal (LTG) Melani reports a overall reduction in pain from 7/10 to -1/10 LTG Duration 8 weeks Assessment Summary Assessment This PT did reassessment on her L knee. Pt has L medial knee pain with valgus stress test at 0, 25 degrees , thessaly, appley and josé antonio with tibial internal rotation . This indicates possbily meniscal /MCL involvment. Her pain tends to relieve with distraction at joint line. Also noted her gait with increased L knee flexion during stance phase. Pt shows improved knee extension and reduced pain after standing TKE. Physical Therapy Plan Next Visit Focus/Plan Next Note Type Treatment Note Next Visit Plan Assess swelling in L knee and response to consolidated HEP last tx, with no stretching massage to L calf. Continue: Progress knee/calf close chained strengthening exercises depending on patient response.
--- NOTE | 2020-11-01 10:20 | PT.OPDS ---
Current Diagnoses Achilles tendinitis, left leg (03/06/20) Pain in left leg (03/06/20) Visit Care Team Role Provider Type Dominguez Powell MD Family Provider Physician Primary Care Provider Specialty: [facility] Practice Address: [address] [place] [address], [address] Email: [email or web address] Attending Provider Advanced Et[employer] Programmer Referring Provider Specialty: [facility] Address: [address] [place] [address], [facility] [place], [address] Email: [email or web address] Visit Number Visit Number 8 Discharge Summary PT-OP-B Current Condition Start: 02/08/20 12:59 Freq: Status: Active Protocol: Document 02/08/20 13:45 AMH (Rec: 02/08/20 13:52 AMH [id number]) Current Condition History of Current Condition Onset Date December 2019 Current Complaints left sided calf pain now moving up to her hamstring History of Current Condition Melani reports for 3.5 years she has gone to a balance class/ exercise at the [employer] and this has helped her stay active. With the covid 19 pandemic she switched to a online class on [employer]. She started noticing occasional pain in her left calf. In the last month to six weeks pain has moved up to the back of her knee and hamstring. Her left leg recently then gave out on her going up the stairs . Walking increases her pain and she really enjoys walking. She started naproxin and heat and she started to feel a little better. Walking still increases her pain. Melani reports she did have a massage last friday and this seemed to help her for at least the rest of the day. Prior Treatments and Tests A ultrasound has been done to rule out DVT Current Functional Impairments (Reported) Functional Limitations- Mobility/Gait pain in the left calf increases with walking, she has pain walking more than 2 blocks. 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 PT-OP-C Subjective Start: 02/08/20 12:59 Freq: Status: Active Protocol: Document 03/06/20 11:20 HH (Rec: 03/06/20 12:13 [id number]) OP-PT Subjective Patient Comments Patient Comments It has been around the same and i didnt do much stretching cause it bothers me. Patient Reported Progress Same PT-OP-F Manual Assessment Start: 02/08/20 12:59 Freq: Status: Active Protocol: Document 02/08/20 18:04 AMH (Rec: 02/08/20 18:31 [facility] [id number]) Manual Assessments Soft Tissue Assessment Soft Tissue Mobility Assessment soft tissue tightness of the popliteus muscle on the left, medial hamstring tightness and adductor tightness PT-OP-J Posture/Palpation/Skin Start: 02/08/20 12:59 Freq: Status: Active Protocol: Document 02/08/20 18:04 AMH (Rec: 02/08/20 18:31 [facility] [id number]) Posture Evaluation Position Standing Ankle/Foot Posture (L) Pronated Palpation Assessment Location semitendonosis, semimembrenosis Palpation Location tightness at the medial hamstring distal insertions Palpation Findings Soft Tissue Tightness,Muscle Guarding,Tenderness left popliteus muscle Palpation Location tenderness and muscle guarding at the left popliteus muscle Palpation Findings Edema,Soft Tissue Tightness, Muscle Guarding,Tenderness PT-OP-K Range of Motion Start: 02/08/20 12:59 Freq: Status: Active Protocol: Document 02/08/20 18:04 AMH (Rec: 02/08/20 18:31 [facility] [id number]) Hip Goniometric Range of Motion Hip ROM Limitations Hip ROM Limitations Soft Tissue Tightness Comments limited SLR of the left LE due to pull on the hamstring muscles, no c/o nerve pain. Knee Goniometric Range of Motion Knee Left Knee ROM WFL Yes Patient Position Supine Knee ROM Limitations Comments pain at end range knee flexion PT-OP-T Assessment and Plan Start: 02/08/20 12:59 Freq: Status: Active Protocol: Document 11/01/20 10:19 AMH (Rec: 11/01/20 10:20 [facility] [id number]) Physical Therapy Plan Discharge Physical Therapy Discharge Reasons No Longer Attending PT Discharge Comments Pt DC PT for further work up and MRI of her left knee
== END 2020-11-06 09:20 ==
LOC: PHYS 11:15
PROVIDERS: Family Provider Family Medicine; PCP Family Medicine; Referring Provider Internal Medicine; Visit Provider Internal Medicine
DX: M76.62 Achilles tendinitis, left leg (principal); M79.605 Pain in left leg
CPT/HCPCS: 97110; 97140; 97161

== ENCOUNTER → 2021-06-01 12:46 | Outpatient (CLI) | payer MEDICARE, OTHER, SELFPAY ==
[2021-06-01] MEDS: COVID-19 VACC #3, MRNA(MOD) 50 MCG/0.25 ML VIAL IM (12:52)
== END ==
PROVIDERS: Visit Provider Internal Medicine
DX: Z23 Encounter for immunization (principal)
CPT/HCPCS: 0013A; 91301

== ENCOUNTER → 2022-03-04 11:20 | Outpatient (CLI) | payer MEDICARE, OTHER, SELFPAY ==
--- NOTE | 2022-03-04 | DI.MG.S_ITS ---
BILATERAL DIGITAL SCREENING MAMMOGRAM 3D/2D WITH CAD: 03/04/2022 CLINICAL: Routine screening. Family history of breast cancer. Comparison is made to exams dated: 11/07/2018 mammogram, 04/08/2016 mammogram, 09/25/2017 mammogram, and 04/06/2015 mammogram - [facility]. There are scattered fibroglandular elements in both breasts. Current study was also evaluated with a Computer Aided Detection (CAD) system. No significant masses, calcifications, or other findings are seen in either breast. There has been no significant interval change. IMPRESSION: NEGATIVE There is no mammographic evidence of malignancy. A 1 year screening mammogram is recommended. Based on the Tyrer Cuzick model (a risk assessment model) the patient's lifetime risk is 9.2% and her 10 year risk is 6.4%. According to the ACR, ACS, and NCCN guidelines, an annual breast MRI exam along with mammogram is recommended if the patient's lifetime risk is 20% or greater. This exam was interpreted at Station ID: [id number]. NOTE: For mammograms, a report in lay terms will be sent to the patient. Approximately 15% of breast malignancies will not be visualized mammographically. In the management of a palpable breast mass, a negative mammogram must not discourage biopsy of a clinically suspicious lesion. Electronically Signed By: Christopher gordon/gregoria:03/04/2022 12:39:02 letter sent: Normal Exam ACR BI-RADS Category 1: Negative [id number]
== END ==
PROVIDERS: PCP Family Medicine; Referring Provider Family Medicine; Visit Provider Family Medicine
DX: Z12.31 Encounter for screening mammogram for malignant neoplasm of breast (principal); Z13.820 Encounter for screening for osteoporosis; M85.89 Other specified disorders of bone density and structure, multiple sites; Z80.3 Family history of malignant neoplasm of breast; Z78.0 Asymptomatic menopausal state; Z92.23 Personal history of estrogen therapy; Z90.710 Acquired absence of both cervix and uterus
CPT/HCPCS: 77063; 77067; 77080

== ENCOUNTER 2022-09-06 08:55 | Day surgery (SDC) | payer MEDICARE, OTHER, SELFPAY ==
--- NOTE | 2022-09-06 | PATH_ITS ---
[facility] Accession Number: [id number] No. of containers..05 Tissue . 01 Material submitted: . PART A: cecum - CECAL POLYP PART B: cecum - CECAL LESION PART C: colon - DISTAL TRANSVERSE COLON POLYP PART D: rectum - RECTAL POLYP PART E: rectum - SMALL RECTAL POLYPS X 2 . 01 Diagnosis: A. Cecal Polyp: Sessile serrated adenoma. . B. Cecal Lesion, Biopsy: Colonic mucosa with prominent benign lymphoid aggregates. Negative for serrated lesion, dysplasia or malignancy. . C. Distal Transverse Colon Polyp: Colonic mucosa with prominent benign lymphoid aggregate. Negative for serrated lesion, dysplasia or malignancy. . D. Rectal Polyp: Colonic mucosa with prominent benign lymphoid aggregate. Negative for serrated lesion, dysplasia or malignancy. . E. Rectal Polyps: Hyperplastic polyp x2. [facility] 09/12/2022 1416 Local . 01 Electronically signed: . Girish Rodriguez MD, PhD, Pathologist NPI- [id number] . 01 Gross description: . A. Received in formalin, labeled with the patient's name, , and designated cecal polyp, and consists of multiple avery soft tissue fragments aggregating to 1.6 x 1.0 x 0.1 cm. The specimen is filtered into a biopsy bag and submitted entirely in cassette A1. B. Received in formalin, labeled with the patient's name, , and designated cecal lesion, and consists of multiple avery soft tissue fragments aggregating to 1.5 x 0.5 x 0.1 cm. The specimen is filtered into a biopsy bag and submitted entirely in cassette B1. C. Received in formalin, labeled with the patient's name, , and designated distal transverse colon polyp, and consists of a single avery soft tissue fragment measuring 0.3 cm in greatest dimension. Submitted entirely in cassette C1. D. Received in formalin, labeled with the patient's name, , and designated rectal polyp, and consists of a single avery soft tissue fragment measuring 0.6 cm in greatest dimension. Submitted entirely in cassette D1. E. Received in formalin, labeled with the patient's name, , and designated small rectal polyps x2, and consists of two avery soft tissue fragments ranging from 0.2 cm to 0.3 cm in greatest dimension. Submitted entirely in cassette E1. ([id number]) /FRR 09/07/2022 1407 Local . 01 Pathologist provided ICD-10: D12.0, K62.1 . 01 CPT . 117889, 257209, 332309, [id number], [id number] Specimen Comment: A courtesy copy of this report has been sent to [facility] Performed at: 01 [facility] [address] [place] [address], [place], [place] [id number] MD Jack Staples MD Phone: [phone]
[2022-09-06 09:17] VITALS: BP 140/86; PULSE 93; RESP 20; TEMP 36.2; O2SAT 94; BMI 27.1
[2022-09-06] MEDS: LACTATED RINGERS 1,000 ML 150 ML IV (09:22)
--- NOTE | 2022-09-06 09:54 | PM.HP.1 ---
History of Present Illness History of Present Illness Chief complaint: Colonoscopy Narrative: Ms. Doyle presents today for screening colonoscopy. She explains that she is in the high-risk category and has had screening every 3 years because of that. Her last colonoscopy that I reviewed the report from was done in December of 2018. There were no polyps identified and no specimens obtained. She has a family history of colon cancer in her mother at the age of 66 from colon cancer. She denies any alarming symptoms no bleeding from below or changes in her bowel habits. She has had an appendectomy in the past that she explains went terribly ?wrong? she had multiple infections and still feels pain around the area of the scar. Otherwise she reports that she often has nausea after colonoscopies. The prep went well and she has no other questions Patient History Medical History Cough Surgical History Status post appendectomy Status post colonoscopy Family & Social History Social History: household members spouse Tobacco & Substance use: Smoking Status Former smoker alcohol intake frequency holiday/special occasion Substance Use Type does not use Meds Home Medications and Allergies Home Medications Medication Instructions Recorded Confirmed Type Vit A/Vit B1/Vit B2/Vit C/Vi ##0 11/17/11 04/07/22 History (#HEXAVITAMIN) citalopram 10 mg tablet 10 mg PO DAILY 01/11/19 09/06/22 History famciclovir 250 mg tablet 2,000 mg PO 4-6XD PRN Breakout 01/11/19 09/06/22 History hydrochlorothiazide 25 mg tablet 25 mg PO DAILY 01/11/19 09/06/22 History levothyroxine 88 mcg tablet 88 mcg PO DAILY 01/11/19 09/06/22 History losartan 25 mg tablet 25 mg PO DAILY 01/11/19 09/06/22 History Allergies Allergy/AdvReac Type Severity Reaction Status Date / Time latex Allergy Severe Rash Verified 09/06/22 09:12 Sulfa (Sulfonamide Allergy Unknown Doesn't Verified 09/06/22 09:12 Antibiotics) remember hydromorphone AdvReac Severe N&V Verified 09/06/22 09:12 meperidine AdvReac Severe N&V Verified 09/06/22 09:12 Exam Vital Signs (past 8 hours): - 09/06/22 09:17 Temperature 97.1 F L Pulse Rate 93 H Respiratory Rate 20 Blood Pressure 140/86 Pulse Oximetry 94 Oxygen Delivery Method Room Air Oxygen Delivery Method Room Air Const General: cooperative, healthy appearing and comfortable HENMT Head: normal to inspection Resp Effort & Inspection: normal respiratory effort and able to speak in complete sentences GI Palpation: soft and No tender Assessment & Plan Assessment and plan (1) Screening for colorectal cancer: Status: Acute (2) Family history of colon cancer in mother: Status: Acute Assessment & Plan narrative: I discussed the risks benefits and alternatives of a screening colonoscopy. Including but not limited to perforation of the colon and incomplete exam the patient understands these risks and would like to proceed today. Time Spent With Patient Critical Care time: I spent a total of [] minutes of critical care time on this patient's care today; this time is exclusive of procedural time.
[2022-09-06 11:07] VITALS: BP 126/76; PULSE 79; RESP 12; TEMP 36.4; O2SAT 89
[2022-09-06 11:12] VITALS: BP 122/77; PULSE 74; RESP 14; O2SAT 96
[2022-09-06 11:19] VITALS: BP 115/76; PULSE 70; RESP 12; O2SAT 95
[2022-09-06 11:24] VITALS: BP 113/71; PULSE 70; RESP 12; TEMP 36.4; O2SAT 96
--- NOTE | 2022-09-06 11:26 | PM.OP.COLON ---
Operative Date/Time/Diagnoses Date of procedure: 09/06/22 Pre-op diagnosis: High-risk colon cancer screening. Post-op diagnosis: same Procedure & Clinicians Study performed: Colonoscopy and biopsy Same procedure as scheduled: Yes Indications: High-risk for colon cancer. Surgeon: Conchis Akins Procedure Notes Procedure in detail: Patient was taken to the endoscopy suite and placed in a left lateral decubitus position. A time-out was performed. Conscious sedation was induced by an anesthesiologist. Digital rectal exam was performed and there were a few small hemorrhoidal skin tags but no masses or strictures. The colonoscope was placed into the anal canal and advanced through to the cecum. Indeed the junction between the rectum and the sigmoid was tight turn as noted in the previous endoscopy report. Otherwise there were no major difficulties in traversing the colon and a photograph was taken of the appendiceal orifice. Appendectomy was apparent. Her prep was good Pettibone bowel prep of 3. There was a cecal polyp that was snared and removed. In another location in the cecum there was a lesion which could have been a previous biopsy site but also could have been a sessile type of polyp so I biopsied this as well and sent that in a separate specimen container labeled cecal lesion. Upon withdrawal there was a 3rd small polyp in the distal transverse colon. This was removed in total with a Spotiembo biopsy forceps. There was pulsatile blood causing a mound at this biopsy site and so though the biopsy was small, I placed a clip over the biopsy site. This clip resolved bleeding and a photograph taken. Upon further withdrawal there was a proximally 0.9 mm rectal polyp which was snared and removed in total. Around this polyp there were a few smaller rectal polyps: A total of 2 small rectal polyps were biopsied with forceps and sent together. There were right-sided diverticulum photographs were taken of those and also left-sided diverticulum as well. The scope was retroflexed and a photograph was taken of hemorrhoidal piles. The patient tolerated the procedure well and went in good condition to the postoperative care unit. Findings: polyp(s) (A total of polyps and/or lesions were biopsied. ) Specimen(s): other (1. Cecal polyp 2. Cecal lesion 3. Distal transverse colon polyp 4. Rectal polyp 5. Small rectal polyps x2) Complications: none Post-procedure Recommendations: Colonoscopy in 3 years
== END 2022-09-06 11:41 | disposition home or self-care (01) ==
PROVIDERS: Family Provider Family Medicine; PCP Family Medicine; Referring Provider Surgery; Visit Provider Surgery
PROC: 0DJD8ZZ Inspection of Lower Intestinal Tract, Via Natural or Artificial Opening Endoscopic (ICD-10-PCS; CPT 45378; principal; 2022-09-06 10:00)
DX: Z12.11 Encounter for screening for malignant neoplasm of colon (principal); Z80.0 Family history of malignant neoplasm of digestive organs; K57.30 Diverticulosis of large intestine without perforation or abscess without bleeding; D12.0 Benign neoplasm of cecum; K62.1 Rectal polyp
CPT/HCPCS: 45380; J2405; J2704; J3010

== ENCOUNTER 2022-09-08 12:39 | Emergency (ER) | payer MEDICARE, OTHER, SELFPAY ==
[2022-09-08 12:52] VITALS: BP 153/72; PULSE 64; RESP 18; TEMP 36.5; O2SAT 96; BMI 27.4
[2022-09-08 13:50] LABS: Add Manual Diff / Slide Review NO; Basophils Absolute Auto 100 /uL (0-100); Basophils Percent Auto 1.2 % (0-2); Eosinophils Absolute Auto 700 /uL (0-450); Eosinophils Percent Auto 9.2 % (2-4); Hematocrit 43.1 % (36-46); Hemoglobin 15.1 g/dL (12.0-16.0); Lymphocytes Absolute Auto 2000 /uL (1100-4500); Lymphocytes Percent Auto 25.4 % (25-40); Mean Corpuscular HGB Conc 34.9 % (30-36); Mean Corpuscular Hemoglobin 31.5 PG (26-34); Mean Corpuscular Volume 90.1 fL (80-100); Monocytes Absolute Auto 600 /uL (0-900); Monocytes Percent Auto 7.3 % (3-14); Neutrophils Absolute Auto 4500 /uL (1500-7000); Neutrophils Percent Auto 56.9 % (50-75); Platelet Count 163 X10^3/uL (150-400); Red Blood Cell Count 4.79 X10^6/uL (4.0-5.2); Red Cell Distribution Width 13.3 % (11.6-14.8); White Blood Cell Count 7.8 X10^3/uL (4.5-11.0)
[2022-09-08 13:57] LABS: Alanine Aminotransferase 24 IU/L (<35); Albumin 4.1 g/dL (3.5-5.0); Albumin Globulin Ratio 1.2 (1.0-2.8); Alkaline Phosphatase 70 U/L (38-126); Aspartate Aminotransferase 33 IU/L (14-36); BUN Creatinine Ratio 21.4 (6-22); Bilirubin Total 0.5 mg/dL (0.2-1.3); Blood Urea Nitrogen 15 mg/dL (7-17); Carbon Dioxide 26 mmol/L (22-32); Chloride 103 mmol/L (98-107); Estimated Glomerular Filt Rate > 60 mL/min (>60); Globulin 3.3 g/dL (1.7-4.1); Glucose 81 mg/dL (80-110); HEMOLYSIS 58 (0-50); Lipase 265 U/L (23-300); Potassium 3.5 mmol/L (3.4-5.1); Sodium 138 mmol/L (137-145); Total Protein 7.4 g/dL (6.3-8.2)
--- NOTE | 2022-09-08 15:25 | DI.CT.S_ITS ---
PROCEDURE: CT ABDOMEN PELVIS W CON INDICATIONS: painful rectal bleeding proctocolitis? TECHNIQUE: After the administration of oral and IV contrast, axial sections were acquired from the lung bases to the pubic symphysis. Coronal and sagittal reformats were performed. For radiation dose reduction, the following was used: automated exposure control, adjustment of mA and/or kV according to patient size. COMPARISON: None. FINDINGS: Image quality: Excellent. Lung bases: Unremarkable. Heart: No significant findings. ABDOMEN: Liver: Unremarkable. Gallbladder: There is a gallstone seen within the gallbladder lumen. No additional CT findings of cholecystitis are seen. Biliary ducts: Unremarkable. Pancreas: The pancreatic duct measures at the upper limits of normal at 3 mm. No additional pancreatic abnormality can be seen. Spleen: Unremarkable. Adrenal Glands: Generalized thickening is seen of the adrenal glands, yet without focal adrenal nodules. Kidneys and Ureters: Unremarkable. Stomach and Bowel: In this patient with this given history, scrutiny is given to the distal colon. Moderate generalized wall thickening and irregularity can be seen involving the rectum. Minimal surrounding inflammatory changes are seen. Sigmoid diverticulosis is seen, without findings of active diverticulitis. The more proximal colon demonstrates no significant abnormality. No significant small bowel abnormality is seen. No significant gastric abnormality is seen. Peritoneum: No abnormal intraperitoneal fluid. No free air. Ventral Wall: No hernia. Abdominal Nodes: No retroperitoneal or mesenteric adenopathy by size criteria. Vessels: Aorta and inferior vena cava are normal in size. Atherosclerotic calcification is noted. PELVIS: Pelvic Organs: This patient is status post hysterectomy. No adnexal masses are seen. Bladder: Unremarkable. Pelvic Nodes: No enlarged lymph nodes. Miscellaneous: No inguinal hernias are seen. A right thigh lipoma is incidentally noted anteriorly, as on series 2, image 72. Bones: Focal L4-L5 degenerative change is seen. Milder degenerative changes are seen elsewhere. IMPRESSION: Generalized moderate rectal wall thickening is seen, which is consistent with the given history. Findings of perforation or abscess can be seen. Sigmoid diverticulosis is seen, without eden findings of active diverticulitis. Additional findings: Gallstone Generalized thickening of the adrenal glands. Pancreatic duct measuring at the upper limits of normal, 3 mm. Focal L4-L5 degenerative change Hysterectomy Right thigh lipoma Dictated by: Vikas Andrews M.D. on 09/08/2022 at 14:58 Approved by: Vikas Andrews M.D. on 09/08/2022 at 15:02
--- NOTE | 2022-09-08 16:26 | ED_ITS ---
HPI - Abdominal Pain <JESSICA JonesP - Last Filed: 09/08/22 17:14> General Chief Complaint: Abdominal Pain Stated Complaint: colonoscopy Fri, pain in abdomen, bleeding Time Seen by Provider: 09/08/22 15:23 Source: patient Mode of arrival: Ambulatory History of Present Illness HPI narrative: This is a 72-year-old female who presents to the emergency department complaining of increasing rectal bleeding since her colonoscopy on 09/06/2021 with well as left-sided inguinal pain and tenderness. States that she has not been taking MiraLax consistently, says that the blood was a lot more than she expected. States it is painful to have a bowel movement. Denies dysuria or urinary frequency with urgency. Denies any vaginal discharge, has a history of total hysterectomy many years ago. Denies any autoimmune disease, denies nausea vomiting, fever chills. Has a history of stress incontinence. Related Data Home Medications Medication Instructions Recorded Confirmed Vit A/Vit B1/Vit B2/Vit C/Vi ##0 11/17/11 04/07/22 (#HEXAVITAMIN) citalopram 10 mg tablet 10 mg PO DAILY 01/11/19 09/06/22 famciclovir 250 mg tablet 2,000 mg PO 4-6XD PRN Breakout 01/11/19 09/06/22 hydrochlorothiazide 25 mg tablet 25 mg PO DAILY 01/11/19 09/06/22 levothyroxine 88 mcg tablet 88 mcg PO DAILY 01/11/19 09/06/22 losartan 25 mg tablet 25 mg PO DAILY 01/11/19 09/06/22 Previous Rx's Medication Instructions Recorded hydrocortisone acetate 25 mg 25 mg RI BEDTIME PRN rectal 09/08/22 rectal suppository pain/bleeding #12 ea amoxicillin 500 mg-potassium 1 tab PO Q12H #14 tabs 09/09/22 clavulanate 125 mg tablet (Augmentin) fluconazole 150 mg tablet 150 mg PO ONCE #1 tab 09/09/22 (Diflucan) Allergies Allergy/AdvReac Type Severity Reaction Status Date / Time latex Allergy Severe Rash Verified 09/06/22 09:12 Sulfa (Sulfonamide Allergy Unknown Doesn't Verified 09/06/22 09:12 Antibiotics) remember hydromorphone AdvReac Severe N&V Verified 09/06/22 09:12 meperidine AdvReac Severe N&V Verified 09/06/22 09:12 Review of Systems <GIBSON Jones - Last Filed: 09/08/22 17:14> Review of Systems ROS Unobtainable: All systems reviewed & are unremarkable except as noted in HPI and below Patient History <GIBSON Jones - Last Filed: 09/08/22 17:14> Medical History Cough Surgical History Status post appendectomy Status post colonoscopy Social History household members: spouse Smoking Status: Former smoker Smoking Status: Former smoker alcohol intake frequency: holidays/special occasions only Substance Use Type: does not use Exam <GIBSON Jones - Last Filed: 09/08/22 17:14> Narrative Exam Narrative: Reviewed vitals signs and nursing notes. General: cooperative, comfortable, in no acute distress, well groomed HEENT: symmetrical facial expressions, moist mucous membranes Cardiovascular: regular rate and rhythm, no peripheral edema, warm extremities Respiratory: normal effort, able to speak in complete sentences, without wheezing, stridor, or abnormal breath sounds. No retractions or tachypnea. GI: abdomen soft, nontender to palpation, nondistended, without masses, rebound tenderness or exquisite tenderness with exam. No flank pain, no exquisite tenderness with abdominal exam MSK: moves all extremities, neurovascularly intact, no weakness, normal tone Skin: brisk capillary refill, without pallor or erythema Neuro: normal speech and cognition, A&O x3, ambulatory, clear speech Psych: mental status is grossly normal, congruent mood, normal affect, pleasant and cooperative Initial Vital Signs Initial Vital Signs: Vital Signs Temperature 97.7 F 09/08/22 12:52 Pulse Rate 64 09/08/22 12:52 Respiratory Rate 18 09/08/22 12:52 Blood Pressure 153/72 H 09/08/22 12:52 Pulse Oximetry 96 09/08/22 12:52 Oxygen Delivery Method 09/08/22 12:52 <Bridgett Perkins DO - Last Filed: 09/17/22 03:19> Initial Vital Signs Initial Vital Signs: Vital Signs Temperature 97.7 F 09/08/22 12:52 Pulse Rate 64 09/08/22 12:52 Respiratory Rate 18 09/08/22 12:52 Blood Pressure 153/72 H 09/08/22 12:52 Pulse Oximetry 96 09/08/22 12:52 Oxygen Delivery Method 09/08/22 12:52 Course <GIBSON Jones - Last Filed: 09/08/22 17:14> Orders Ordered: Discontinued Medications Hydrocortisone (Hydrocortisone 25 Mg Supp) 25 mg RI NOW ONE Stop: 09/08/22 16:27 Last Admin: 09/08/22 17:02 Dose: 25 mg Documented By: PHILLY Ibuprofen (Ibuprofen 400 Mg Tablet) 600 mg PO NOW ONE Stop: 09/08/22 16:27 Last Admin: 09/08/22 17:02 Dose: 600 mg Documented By: PHILLY Ondansetron HCl (Ondansetron 4 Mg Odt) 4 mg PO NOW PRN PRN Reason: Nausea And Vomiting Ondansetron HCl (Ondansetron 4 Mg/2 Ml Inj) 4 mg IV NOW PRN PRN Reason: Nausea And Vomiting Vital Signs Vital signs: Vital Signs - 8 hr 09/08/22 12:52 Temperature 97.7 F Pulse Rate 64 Respiratory Rate 18 Blood Pressure 153/72 H Pulse Oximetry 96 Oxygen Delivery Method Room Air <Bridgett Perkins DO - Last Filed: 09/17/22 03:19> Orders Ordered: Discontinued Medications Hydrocortisone (Hydrocortisone 25 Mg Supp) 25 mg RI NOW ONE Stop: 09/08/22 16:27 Last Admin: 09/08/22 17:02 Dose: 25 mg Documented By: PHILLY Ibuprofen (Ibuprofen 400 Mg Tablet) 600 mg PO NOW ONE Stop: 09/08/22 16:27 Last Admin: 09/08/22 17:02 Dose: 600 mg Documented By: PHILLY Ondansetron HCl (Ondansetron 4 Mg Odt) 4 mg PO NOW PRN PRN Reason: Nausea And Vomiting Ondansetron HCl (Ondansetron 4 Mg/2 Ml Inj) 4 mg IV NOW PRN PRN Reason: Nausea And Vomiting Vital Signs Vital signs: Vital Signs - 8 hr 09/08/22 12:52 Temperature 97.7 F Pulse Rate 64 Respiratory Rate 18 Blood Pressure 153/72 H Pulse Oximetry 96 Oxygen Delivery Method Room Air MDM - Abdominal Pain <Kiara Barron [facility] - Last Filed: 09/08/22 17:14> Lab Data 09/08/22 13:37 09/08/22 13:37 Labs: Lab Results 09/08/22 09/08/22 09/08/22 Range/Units 13:37 13:37 16:25 WBC 7.8 (4.5-11.0) X10^3/uL RBC 4.79 (4.0-5.2) X10^6/uL Hgb 15.1 (12.0-16.0) g/dL Hct 43.1 (36-46) % MCV 90.1 (80-100) fL MCH 31.5 (26-34) PG MCHC 34.9 (30-36) % RDW 13.3 (11.6-14.8) % Plt Count 163 (150-400) X10^3/uL Neut % (Auto) 56.9 (50-75) % Lymph % (Auto) 25.4 (25-40) % [place] % (Auto) 7.3 (3-14) % Eos % (Auto) 9.2 H (2-4) % Baso % (Auto) 1.2 (0-2) % Neut # (Auto) 4500 (0762-2188) /uL Lymph # (Auto) 2000 (5211-3808) /uL [place] # (Auto) 600 (0-900) /uL Eos # (Auto) 700 H (0-450) /uL Baso # (Auto) 100 (0-100) /uL Sodium 138 (137-145) mmol/L Potassium 3.5 (3.4-5.1) mmol/L Chloride 103 (98-107) mmol/L Carbon Dioxide 26 (22-32) mmol/L BUN 15 (7-17) mg/dL Creatinine 0.70 (0.52-1.04) mg/dL Estimated GFR > 60 (>60) mL/min BUN/Creatinine Ratio 21.4 (6-22) Glucose 81 (80-110) mg/dL Calcium 9.0 (8.4-10.2) mg/dL Total Bilirubin 0.5 (0.2-1.3) mg/dL AST 33 (14-36) IU/L ALT 24 (<35) IU/L Alkaline Phosphatase 70 (38-126) U/L Total Protein 7.4 (6.3-8.2) g/dL Albumin 4.1 (3.5-5.0) g/dL Globulin 3.3 (1.7-4.1) g/dL Albumin/Globulin Ratio 1.2 (1.0-2.8) Lipase 265 (23-300) U/L Urine RBC 0-1/hpf (0-5/HPF) Urine WBC None seen (0-5/HPF) Urine Bacteria None seen (None) Ur Culture Indicated? Cult not indicated Point of care testing: Urine Dip Bedside Urine Glucose Negative Bedside Urine Bilirubin - Negative Bedside Urine Ketone - Negative Urine Specific [place] 1.005 Bedside Urine Occult Blood + Bedside Urine pH 6.0 Bedside Urine Protein - Negative Bedside Urine Urobilinogen - Negative Bedside Urine Nitrite - Negative Bedside Urine Leukocytes - Negative Esterase Imaging Data CT scan - abdomen/pelvis: Radiologist's Impression: ADDENDUMThis report includes an Addendum and supersedes previous reports for this exam. ? ? ? PROCEDURE:? CT ABDOMEN PELVIS W CON ? INDICATIONS:? painful rectal bleeding proctocolitis? ? TECHNIQUE:? After the administration of oral and IV contrast, axial sections were acquired from the lung bases to the pubic symphysis.? Coronal and sagittal reformats were performed.? For radiation dose reduction, the following was used:? automated exposure control, adjustment of mA and/or kV according to patient size. ? COMPARISON:? None. ? FINDINGS:? Image quality:? Excellent.? ? Lung bases:? Unremarkable.? ? Heart:? No significant findings. ? ? ABDOMEN: Liver:? Unremarkable.? ? Gallbladder:? There is a gallstone seen within the gallbladder lumen.? No additional CT findings of cholecystitis are seen.? ? Biliary ducts:? Unremarkable.? ? Pancreas:? The pancreatic duct measures at the upper limits of normal at 3 mm.? No additional pancreatic abnormality can be seen. Spleen:? Unremarkable.? ? Adrenal Glands:? Generalized thickening is seen of the adrenal glands, yet without focal adrenal nodules. Kidneys and Ureters:? Unremarkable.? ? ? Stomach and Bowel: In this patient with this given history, scrutiny is given to the distal colon.? Moderate generalized wall thickening and irregularity can be seen involving the rectum.? Minimal surrounding inflammatory changes are seen. Sigmoid diverticulosis is seen, without findings of active diverticulitis. The more proximal colon demonstrates no significant abnormality. No significant small bowel abnormality is seen. No significant gastric abnormality is seen. Peritoneum:? No abnormal intraperitoneal fluid.? No free air.? ? Ventral Wall: ? No hernia.? Abdominal Nodes:? No retroperitoneal or mesenteric adenopathy by size criteria.? Vessels:? Aorta and inferior vena cava are normal in size.? Atherosclerotic calcification is noted.? ? PELVIS: Pelvic Organs: This patient is status post hysterectomy. No adnexal masses are seen.? Bladder:? Unremarkable.? ? Pelvic Nodes: No enlarged lymph nodes.? Miscellaneous: No inguinal hernias are seen.? ? A right thigh lipoma is incidentally noted anteriorly, as on series 2, image 72. ? Bones:? Focal L4-L5 degenerative change is seen.? Milder degenerative changes are seen elsewhere.? ? ? IMPRESSION:? ? Generalized moderate rectal wall thickening is seen, which is consistent with the given history. ? No findings of perforation or abscess can be seen. ? Sigmoid diverticulosis is seen, without eden findings of active diverticulitis. ? Additional findings:? Gallstone Generalized thickening of the adrenal glands.? Pancreatic duct measuring at the upper limits of normal, 3 mm. Focal L4-L5 degenerative change Hysterectomy Right thigh lipoma ? Dictated by: Vikas Andrews M.D. on 09/08/2022 at 14:58 ? ? Approved by: Vikas Andrews M.D. on 09/08/2022 at 15:02 ? ? ? ADDENDUM: ? ? Report corrected and underlined above.? ? Note: Contents of this addendum discussed by telephone between Dr. Richardson and SATISH hernadez. ? Dictated by: Vikas Andrews M.D. on 09/08/2022 at 15:46 ? ? Approved by: Vikas Andrews M.D. on 09/08/2022 at 15:46 ? Addendum Dictated By: Vikas Andrews MD Addendum Signed By: Addendum Cosigned By: DD/ TD/TT: 09/08/22 PROCEDURE:? CT ABDOMEN PELVIS W CON ? INDICATIONS:? painful rectal bleeding proctocolitis? ? TECHNIQUE:? After the administration of oral and IV contrast, axial sections were acquired from the lung bases to the pubic symphysis.? Coronal and sagittal reformats were p erformed.? For radiation dose reduction, the following was used:? automated exposure control, adjustment of mA and/or kV according to patient size. ? COMPARISON:? None. ? FINDINGS:? Image quality:? Excellent.? ? Lung bases:? Unremarkable.? ? Heart:? No significant findings. ? ? ABDOMEN: Liver:? Unremarkable.? ? Gallbladder:? There is a gallstone seen within the gallbladder lumen.? No additional CT findings of cholecystitis are seen.? ? Biliary ducts:? Unremarkable.? ? Pancreas:? The pancreatic duct measures at the upper limits of normal at 3 mm.? No additional pancreatic abnormality can be seen. Spleen:? Unremarkable.? ? Adrenal Glands:? Generalized thickening is seen of the adrenal glands, yet without focal adrenal nodules. Kidneys and Ureters:? Unremarkable.? ? ? Stomach and Bowel: In this patient with this given history, scrutiny is given to the distal colon.? Moderate generalized wall thickening and irregularity can be seen involving the rectum.? Minimal surrounding inflammatory changes are seen. Sigmoid diverticulosis is seen, without findings of active diverticulitis. The more proximal colon demonstrates no significant abnormality. No significant small bowel abnormality is seen. No significant gastric abnormality is seen. Peritoneum:? No abnormal intraperitoneal fluid.? No free air.? ? Ventral Wall: ? No hernia.? Abdominal Nodes:? No retroperitoneal or mesenteric adenopathy by size criteria.? Vessels:? Aorta and inferior vena cava are normal in size.? Atherosclerotic ca lcification is noted.? ? PELVIS: Pelvic Organs: This patient is status post hysterectomy. No adnexal masses are seen.? Bladder:? Unremarkable.? ? Pelvic Nodes: No enlarged lymph nodes.? Miscellaneous: No inguinal hernias are seen.? ? A right thigh lipoma is incidentally noted anteriorly, as on series 2, image 72. ? Bones:? Focal L4-L5 degenerative change is seen.? Milder degenerative changes are seen elsewhere.? ? ? IMPRESSION:? ? Generalized moderate rectal wall thickening is seen, which is consistent with the given history. ? Findings of perforation or abscess can be seen. ? Sigmoid diverticulosis is seen, without eden findings of active diverticulitis. ? Additional findings:? Gallstone Generalized thickening of the adrenal glands.? Pancreatic duct measuring at the upper limits of normal, 3 mm. Focal L4-L5 degenerative change Hysterectomy Right thigh lipoma ? Dictated by: Vikas Andrews M.D. on 09/08/2022 at 14:58 ? ? Approved by: Vikas Andrews M.D. on 09/08/2022 at 15:02 ? MDM Narrative Medical decision making narrative: Chief Complaint: Increased rectal bleeding with left lower quadrant/pelvic pain Independent historian: Patient Differential diagnoses include but are not limited to: Rectal inflammation,, proctocolitis, acute cystitis, nephrolithiasis, urinary tract infection I have independently reviewed the patient's vital signs and nursing notes as well as prior records if available. Pertinent lab findings reviewed:, no leukocytosis or anemia, no left shift, no electrolyte abnormalities, lipase is 265, UA is negative for RBCs, WBCs and bacteria on microscopy Pertinent Imaging reviewed: CT abdomen and pelvis with contrast shows rectal wall thickening and irregularity consistent with inflammation, no inflammatory changes seen to the more proximal colon, no diverticulitis, no free air no enlarged lymph nodes ( initially patient's CT scan had a typo stating findings of perforation or abscess can be seen, this was clarified with on-call radiologist who read the CT scan and does not see findings of perforation or abscess, he will make an addendum on this report* edited the CT abdomen report with new addendum) Clinical decision rules or scores evaluated: Patient's UA is negative for infection will treat supportively with rectal suppositories of hydrocortisone, patient will follow-up with Dr. Akins tomorrow and week day. She does not have evidence of anemia and her bleeding has slowed down, encouraged her to use ibuprofen as needed for pain and inflammation, return for worsening pain, fever chills, or other complications. Social considerations that may affect disposition: none Questions are addressed and there is agreement with the plan and for follow-up. Patient is appropriate for outpatient management. MIPS: This encounter doesn't have any diagnosis' associated with MIPS criteria. Return precautions discussed with patient/family whom verbalize understanding of diagnosis and plan <Bridgett Perkins, - Last Filed: 09/17/22 03:19> Lab Data Labs: Lab Results 09/08/22 09/08/22 09/08/22 Range/Units 13:37 13:37 16:25 WBC 7.8 (4.5-11.0) X10^3/uL RBC 4.79 (4.0-5.2) X10^6/uL Hgb 15.1 (12.0-16.0) g/dL Hct 43.1 (36-46) % MCV 90.1 (80-100) fL MCH 31.5 (26-34) PG MCHC 34.9 (30-36) % RDW 13.3 (11.6-14.8) % Plt Count 163 (150-400) X10^3/uL Neut % (Auto) 56.9 (50-75) % Lymph % (Auto) 25.4 (25-40) % [place] % (Auto) 7.3 (3-14) % Eos % (Auto) 9.2 H (2-4) % Baso % (Auto) 1.2 (0-2) % Neut # (Auto) 4500 (0742-8884) /uL Lymph # (Auto) 2000 (7554-0275) /uL [place] # (Auto) 600 (0-900) /uL Eos # (Auto) 700 H (0-450) /uL Baso # (Auto) 100 (0-100) /uL Sodium 138 (137-145) mmol/L Potassium 3.5 (3.4-5.1) mmol/L Chloride 103 (98-107) mmol/L Carbon Dioxide 26 (22-32) mmol/L BUN 15 (7-17) mg/dL Creatinine 0.70 (0.52-1.04) mg/dL Estimated GFR > 60 (>60) mL/min BUN/Creatinine Ratio 21.4 (6-22) Glucose 81 (80-110) mg/dL Calcium 9.0 (8.4-10.2) mg/dL Total Bilirubin 0.5 (0.2-1.3) mg/dL AST 33 (14-36) IU/L ALT 24 (<35) IU/L Alkaline Phosphatase 70 (38-126) U/L Total Protein 7.4 (6.3-8.2) g/dL Albumin 4.1 (3.5-5.0) g/dL Globulin 3.3 (1.7-4.1) g/dL Albumin/Globulin Ratio 1.2 (1.0-2.8) Lipase 265 (23-300) U/L Urine RBC 0-1/hpf (0-5/HPF) Urine WBC None seen (0-5/HPF) Urine Bacteria None seen (None) Ur Culture Indicated? Cult not indicated Point of care testing: Urine Dip Bedside Urine Glucose Negative Bedside Urine Bilirubin - Negative Bedside Urine Ketone - Negative Urine Specific [place] 1.005 Bedside Urine Occult Blood + Bedside Urine pH 6.0 Bedside Urine Protein - Negative Bedside Urine Urobilinogen - Negative Bedside Urine Nitrite - Negative Bedside Urine Leukocytes - Negative Esterase Discharge Plan Departure Patient Disposition: Home Clinical Impression: Bright red rectal bleeding Instructions: DI for Rectal Bleeding, DI for Rectal Injury, Hydrocortisone Rectal Activity Restrictions/Additional Instructions: *You have been diagnosed with rectal bleeding without evidence of bladder infection or ascending infection. Please use the rectal suppositories to help decrease inflammation and bleeding. Continue with MiraLax so that your stools are soft. Stay hydrated and call Dr. Akins' office tomorrow and schedule a follow-up appointment soon. I confirmed with the radiologist that your CT report does not show abscess or fluid collection concerning for infection. It does show edema and inflammation however this should go down with ibuprofen every 6 hours with food and water, rectal hydrocortisone daily as needed, and MiraLax. *What to do: *Please continue to take your regular medications as directed. [x ] New medication prescriptions sent to your pharmacy: [[facility] ] [ ] New medication written as a paper prescription [ ] No new medications given *Please follow up with your primary care provider in 2-3 days, call for an appointment. Let them know you were seen in the Emergency Department and that we asked that you be seen for follow-up. We will electronically transmit a record of today's note if your PCP is in our system *If you do not have a primary care provider please contact [phone] to establish care with one of the [facility] primary care providers. *Return to Emergency Department if you should have any new, worsening, or concerning symptoms, such as [fever greater than 101F, chills, worsening pain, persistent vomiting or other bothersome symptoms]. Prescriptions: New hydrocortisone acetate 25 mg suppository 25 mg RI BEDTIME PRN (Reason: rectal pain/bleeding) Qty: 12 0RF No Action Vit A/Vit B1/Vit B2/Vit C/Vi (#HEXAVITAMIN) Qty: 0 amoxicillin-pot clavulanate [Augmentin] 500-125 mg tablet 1 tab PO Q12H Qty: 14 0RF fluconazole [Diflucan] 150 mg tablet 150 mg PO ONCE Qty: 1 0RF Rx Instructions: as a single dose citalopram 10 mg Tablet 10 mg PO DAILY levothyroxine 88 mcg Tablet 88 mcg PO DAILY famciclovir 250 mg Tablet 2,000 mg PO 4-6XD PRN (Reason: Breakout) Label Comments: Takes PRN, hasn't used in months losartan 25 mg Tablet 25 mg PO DAILY hydrochlorothiazide 25 mg Tablet 25 mg PO DAILY Referrals: Conchis Akins MD [Physician] - Aramis Cunningham MD [Primary Care Provider] - Stand Alone Forms: Patient Portal/API <Bridgett Perkins DO - Last Filed: 09/17/22 03:19> Cosign ED Attending Carmelaature Attestation: I was immediately available in the department for consultation. Documentation has been reviewed.
[2022-09-08 16:38] LABS: Bacteria Urine None Seen; Culture Indicated Urine Cult Not Indicated; RBC Urine 0-1/HPF (0-5/HPF); WBC Urine None Seen (0-5/HPF)
[2022-09-08] MEDS: HYDROCORTISONE 25 MG SUPP PR (17:02)
[2022-09-08] MEDS: IBUPROFEN 400 MG TABLET 600 MG PO (17:02)
[2022-09-08 17:12] VITALS: BP 122/86; PULSE 72; RESP 16; TEMP 36.8; O2SAT 98
== END 2022-09-08 17:13 | disposition home or self-care (01) ==
PROVIDERS: Emergency Medicine; Emergency Provider Nurse Practitioner Critical Care Medicine; Family Provider Family Medicine; PCP Family Medicine
DX: K62.5 Hemorrhage of anus and rectum (principal)
CPT/HCPCS: 36415; 74177; 80053; 81003; 81015; 83690; 85025; 99284; Q9967

== ENCOUNTER → 2022-11-08 12:43 | Outpatient (CLI) | payer MEDICARE, OTHER, SELFPAY ==
--- NOTE | 2022-11-08 | DI.RAD.S_ITS ---
PROCEDURE: XR FEMUR RT MIN 2V INDICATIONS: LEG PAIN TECHNIQUE: 4 views of the femur were acquired. COMPARISON: [facility], CT, CT ABDOMEN PELVIS W CON, 09/08/2022, 15:36. FINDINGS: Bones: No fractures or dislocations. No periosteal reaction. Mild right hip degenerative change. Small greater trochanter osteophyte. narrowing No suspicious bony lesions. Soft tissues: No suspicious soft tissue calcifications or masses. IMPRESSION: No acute osseous abnormality. Mild right hip DJD. Dictated by: Christopher Carreon M.D. on 11/08/2022 at 14:00 Approved by: Christopher Carreon M.D. on 11/08/2022 at 14:02
== END ==
PROVIDERS: Family Provider Family Medicine; PCP Family Medicine; Referring Provider Family Medicine; Visit Provider Family Medicine
DX: M79.604 Pain in right leg (principal); M16.11 Unilateral primary osteoarthritis, right hip
CPT/HCPCS: 73552

== ENCOUNTER → 2023-03-11 09:16 | Outpatient (CLI) | payer MEDICARE, OTHER, SELFPAY ==
--- NOTE | 2023-03-11 | DI.MG.S_ITS ---
BILATERAL DIGITAL SCREENING MAMMOGRAM 3D/2D WITH CAD: 03/11/2023 CLINICAL: Routine screening. Family history of breast cancer. Comparison is made to exams dated: 03/04/2022 mammogram, 11/07/2018 mammogram, and 09/25/2017 mammogram - [facility]. There are scattered areas of fibroglandular density in both breasts (category b / 25%-50% glandular tissue). Current study was also evaluated with a Computer Aided Detection (CAD) system. No significant masses, calcifications, or other findings are seen in either breast. There has been no significant interval change. IMPRESSION: NEGATIVE There is no mammographic evidence of malignancy. A 1 year screening mammogram is recommended. Based on the Tyrer Cuzick model (a risk assessment model) the patient's lifetime risk is 8.7% and her 10 year risk is 6.5%. According to the ACR, ACS, and NCCN guidelines, an annual breast MRI exam along with mammogram is recommended if the patient's lifetime risk is 20% or greater. This exam was interpreted at Station ID: [id number]. NOTE: For mammograms, a report in lay terms will be sent to the patient. Approximately 15% of breast malignancies will not be visualized mammographically. In the management of a palpable breast mass, a negative mammogram must not discourage biopsy of a clinically suspicious lesion. Electronically Signed By: Loy richardson/gregoria:03/11/2023 17:16:27 letter sent: Normal Exam ACR BI-RADS Category 1: Negative [id number]
== END ==
PROVIDERS: Family Provider Family Medicine; PCP Family Medicine; Referring Provider Family Medicine; Visit Provider Family Medicine
DX: Z12.31 Encounter for screening mammogram for malignant neoplasm of breast (principal); Z80.3 Family history of malignant neoplasm of breast
CPT/HCPCS: 77063; 77067

== ENCOUNTER 2023-09-02 09:00 | Outpatient (RCR) | payer MEDICARE, OTHER, SELFPAY ==
--- NOTE | 2023-06-03 11:54 | PT.OIE ---
Current Diagnoses Pain in right hip (06/03/23) Muscle weakness (generalized) (06/03/23) Iliotibial band syndrome, right leg (06/03/23) Unspecified urinary incontinence (06/03/23) Urgency of urination (06/03/23) Past Medical History (Last Reviewed 09/08/22 @ 17:04 by GIBSON Jones) Cough Past Surgical History (Last Reviewed 09/08/22 @ 17:04 by GIBSON Jones) Status post appendectomy Status post colonoscopy Visit Care Team Role Provider Type Aramis Cunningham MD Attending Provider Physician Family Provider Primary Care Provider Referring Provider Specialty: Family Practice Address: [address] [place] [address], [facility] Email: [email or web address] Physical Therapy Initial Evaluation PT-OP-A Visit Information Start: 06/03/23 08:11 Freq: Status: Active Protocol: Document 06/03/23 09:41 [facility] (Rec: 06/03/23 10:12 [facility] [id number]) Out-Patient Physical Therapy Visit Information Visit Information Visit Type Initial Evaluation Visit Start Time 09:45 Visit Stop Time 10:30 Total Visit Minutes 45 Visit Number 1 Evaluation Information Evaluation Date 06/03/23 PT-OP-B Current Condition Start: 06/03/23 08:11 Freq: Status: Active Protocol: Document 06/03/23 09:45 [facility] (Rec: 06/03/23 10:12 [facility] [id number]) Current Condition History of Current Condition Onset Date 6 months ago Current Complaints urinary urge incontinence and right sided hip pain History of Current Condition 73 year old female who presents to PT with urinary urgency and leakage and right sided hip pain. 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 She does report her she bursitis in the right hip and a bone spur. She had a history of Urinary tract infection that lasted a long time and began late summer. Her urgency is better but still still has a strong urge to go but is not leaking. She will wake 0-1 times per night. Her hip is a bigger issue at this time. Sleeping is difficult with her else. Her hip is sore as soon as she wakes up, the more she is up and moving around it seems to get better. She is seeing chiropractor and did some fascial work which was really helpful. She has increased pain with stairs and she feels it mostly going down. She does report a torn meniscus in the left knee. She walks approx 15 min prior to the pain starting. Treatment Goals Patient/Caregiver Goals pts goals include reducing urinary leakage and urgency as well as reducing hip pain and increasing strength for walking and daily activities. PT-OP-C Subjective Start: 06/03/23 08:11 Freq: Status: Active Protocol: Document 06/03/23 09:45 [facility] (Rec: 06/03/23 11:34 [facility] [id number]) OP-PT Pain Assessment Location right lateral hip Pain Location Details right lateral hip Intensity 6 Scale Used Numeric (0 - 10) Description Aching Description- Other pain laying on right side, pain descending stairs, pain with walking >15 mi Pain Aggravating Factors ADL's,Exercise PT-OP-F Manual Assessment Start: 06/03/23 08:11 Freq: Status: Active Protocol: Document 06/03/23 09:45 [facility] (Rec: 06/03/23 11:34 [facility] [id number]) Manual Assessments Soft Tissue Assessment Soft Tissue Mobility Assessment tightness of the fascial tissue of the adductors, ITB, quadriceps, and piriformis on the right side tightness of the iliopsoas on the right side Joint Mobility Assessment Joint Mobility Assessment goood joint mobility in all directions of the right hip Other Manual Assessments Other Manual Assessments sidelying quad stretch brings on c/o tightness and pain PT-OP-I Pelvic Floor Start: 06/03/23 08:11 Freq: Status: Active Protocol: Document 06/03/23 09:45 [facility] (Rec: 06/03/23 11:36 [facility] [id number]) Pelvic Floor Assessment Urine Urinary Symptoms Urge Sensation,Incomplete Emptying Other Urinary Symptoms Melani has had a history of a UTI that needed to be treated with antibiotics Leakage Size Small Leakage Cause Cough,Sneeze,Urge Nocturia 0-1 PT-OP-J Posture/Palpation/Skin Start: 06/03/23 08:11 Freq: Status: Active Protocol: Document 06/03/23 09:45 [facility] (Rec: 06/03/23 11:52 [facility] [id number]) Palpation Assessment Location right lateral and posterior hip Palpation Findings Soft Tissue Tightness,Spasm, Muscle Guarding,Tenderness Palpation Details tenderness at the R hip both laterally and posteriorly with muscle guarding and spasm PT-OP-M Strength Start: 06/03/23 08:11 Freq: Status: Active Protocol: Document 06/03/23 09:45 [facility] (Rec: 06/03/23 11:35 [facility] [id number]) Trunk Strength Trunk Manual Muscle Testing Core Stabilization poor core stabilization and weakness of the core and pelvic floor Hip Strength Hip Manual Muscle Testing Right Abduction 2+ Poor+ External Rotation 3 Fair PT-OP-Q Treatments Start: 06/03/23 08:11 Freq: Status: Active Protocol: Document 06/03/23 09:45 [facility] (Rec: 06/03/23 10:35 [facility] [id number]) Therapeutic Exercises Supine Exercises supine pelvic floor modified squat stretch Reps/Minutes hold 1-2 min modified piriformis stretch Reps/Minutes hold 1-2 min Comments cross ankle over knee without pulling up legs single knee to chest Reps/Minutes hold 1-2 min PT-OP-T Assessment and Plan Start: 06/03/23 08:11 Freq: Status: Active Protocol: Document 06/03/23 09:45 [facility] (Rec: 06/03/23 11:34 [facility] [id number]) Physical Therapy Assessment Rehab Potential Rehabilitation Potential Excellent Evaluation Complexity Number of Personal Factors/Comorbidities 0 Number of Body Systems Impaired 1-2 Clinical Presentation at Evaluation Stable Impairments Impairments Activity Tolerance Goals 3 Impairment muscle guarding and fascial tightness of the right side adductors, ITB, piriformis, iliopsoas Short Term Goal (STG) Melani is educated in a home stretching program to address muscular tightness and to help decrease the strain onto her right hip STG Duration 4 weeks [employer]eng[employer]isher Goal (LTG) Melani presents with decreased fascial tightness and improved flexibility of her muscles LTG Duration 8 weeks 2 Impairment Right sided hip pain made worse with laying on her right hip, walking, and stairs especially going down stairs Retirement Goal (LTG) Melani reports a overall reduction in her hip pain and she is able to return to sleeping on her right side at night LTG Duration 8 weeks+ 1 Impairment Decreased hip strength on the right side with hip abduction 2+/5 and hip ER 3/5 MMT Short Term Goal (STG) Melani is educated on exercises to begin working on lateral hip strength STG Duration 2-3 weeks Retirement Goal (LTG) Melani presents with increased strength of the right hip and demonstrates improved muscle grade by 1 muscle grade or better LTG Duration 8+ weeks Assessment Summary Assessment Melani is a 73 year old female referred to PT with c/o right sided hip pain that has been bothering her approx 6 months. She notes per a second xray that was taken at [facility] that she has a bone spur and hip bursitis on the right side. She reports feeling that her activity level has decreased significantly due to pain. 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 This has also decreased her activity level. She notes she was walking approx 5 miles per day but is not currently walking any dogs. She states at approx 15 min her pain starts in on her right hip. She notes pain with laying on her right hip and also with stairs . Melani is also referred for pelvic floor strengthening for urge incontinence. She has a history of a UTI that began late summer of 2022 and has lasted pretty much until now. After taking antibiotics she notes her urgency is better than it was but she still feels she is unable to delay the need to void or she will leak. She notes small leaks with cough and sneeze. Melani also notes she has diffculty fully emptying her bladder. With examination of the right hip today she presents with ROM WFL but tightness and guarding of the adductors, ITB , piriformis, quad, and Illiopsoas. Melani lacks strength on the right for hip abduction and hip ER. I started her today with stretches for her right hip and began some fascial release for her as she mentioned this had helped her in the past. Treatment will progress to lateral hip strengthening as well as pelvic floor assessment and strengthening and core stabilization exercises. Melani is a good candidate for PT. Physical Therapy Plan Frequency and Duration Frequency of Treatment 2x/Week Duration of treatment (weeks) 8 Plan of Care Start Date 06/03/23 Plan of Care End Date 07/29/23 Therapeutic Interventions Therapeutic Interventions Home Exercise Program,Manual Therapy,Neuromuscular Re- education,Patient/Caregiver Education,Soft Tissue Mobilization,Therapeutic Exercises Modalities Biofeedback Next Visit Focus/Plan Next Note Type Treatment Note Next Visit Plan review stretches given at today's visit, begin strengthening both hip abduction and hip ER on the right side
--- NOTE | 2023-06-03 11:55 | PT.OPPOC ---
Physical, Occupational & Speech Therapy At [facility] Current Diagnoses Pain in right hip (06/03/23) Muscle weakness (generalized) (06/03/23) Iliotibial band syndrome, right leg (06/03/23) Unspecified urinary incontinence (06/03/23) Urgency of urination (06/03/23) Visit Care Team Role Provider Type Aramis Cunningham MD Attending Provider Physician Family Provider Primary Care Provider Referring Provider Specialty: [facility] Address: [facility] [place], [place], [facility] Email: [email or web address] Plan Of Care PT-OP-T Assessment and Plan Start: 06/03/23 08:11 Freq: Status: Active Protocol: Document 06/03/23 09:45 [facility] (Rec: 06/03/23 11:34 [facility] [id number]) Physical Therapy Assessment Rehab Potential Rehabilitation Potential Excellent Evaluation Complexity Number of Personal Factors/Comorbidities 0 Number of Body Systems Impaired 1-2 Clinical Presentation at Evaluation Stable Impairments Impairments Activity Tolerance Goals 3 Impairment muscle guarding and fascial tightness of the right side adductors, ITB, piriformis, iliopsoas Short Term Goal (STG) Melani is educated in a home stretching program to address muscular tightness and to help decrease the strain onto her right hip STG Duration 4 weeks Muck Hauler Goal (LTG) Melani presents with decreased fascial tightness and improved flexibility of her muscles LTG Duration 8 weeks 2 Impairment Right sided hip pain made worse with laying on her right hip, walking, and stairs especially going down stairs Group Home Goal (LTG) Melani reports a overall reduction in her hip pain and she is able to return to sleeping on her right side at night LTG Duration 8 weeks+ 1 Impairment Decreased hip strength on the right side with hip abduction 2+/5 and hip ER 3/5 MMT Short Term Goal (STG) Melani is educated on exercises to begin working on lateral hip strength STG Duration 2-3 weeks Muck Hauler Goal (LTG) Melani presents with increased strength of the right hip and demonstrates improved muscle grade by 1 muscle grade or better LTG Duration 8+ weeks Assessment Summary Assessment Melani is a 73 year old female referred to PT with c/o right sided hip pain that has been bothering her approx 6 months. She notes per a second xray that was taken at [facility] that she has a bone spur and hip bursitis on the right side. She reports feeling that her activity level has decreased significantly due to pain. 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 This has also decreased her activity level. She notes she was walking approx 5 miles per day but is not currently walking any dogs. She states at approx 15 min her pain starts in on her right hip. She notes pain with laying on her right hip and also with stairs . Melani is also referred for pelvic floor strengthening for urge incontinence. She has a history of a UTI that began late summer of 2022 and has lasted pretty much until now. After taking antibiotics she notes her urgency is better than it was but she still feels she is unable to delay the need to void or she will leak. She notes small leaks with cough and sneeze. Melani also notes she has difficulty fully emptying her bladder. With examination of the right hip today she presents with ROM WFL but tightness and guarding of the adductors, ITB , piriformis, quad, and Illiopsoas. Melani lacks strength on the right for hip abduction and hip ER. I started her today with stretches for her right hip and began some fascial release for her as she mentioned this had helped her in the past. Treatment will progress to lateral hip strengthening as well as pelvic floor assessment and strengthening and core stabilization exercises. Melani is a good candidate for PT. Physical Therapy Plan Frequency and Duration Frequency of Treatment 2x/Week Duration of treatment (weeks) 8 Plan of Care Start Date 06/03/23 Plan of Care End Date 07/29/23 Therapeutic Interventions Therapeutic Interventions Home Exercise Program,Manual Therapy,Neuromuscular Re- education,Patient/Caregiver Education,Soft Tissue Mobilization,Therapeutic Exercises Modalities Biofeedback Next Visit Focus/Plan Next Note Type Treatment Note Next Visit Plan review stretches given at today's visit, begin strengthening both hip abduction and hip ER on the right side Plan of Care Dates Plan of Care Start Date 06/03/23 Plan of Care End Date 07/29/23 Electronically Signed by: Lisette Abbott, PT 06/03/23 1280 If you are in agreement with this Plan of Care, please return a signed and dated copy. I have reviewed this Plan of Care and certify that the skilled therapy services above are required to meet the patient?s needs. Physician Signature Date Printed Name and Credentials Clinical Instructor Signature Printed Name and Credentials
--- NOTE | 2023-06-19 11:58 | PT.OTN ---
Current Diagnoses Pain in right hip (06/18/23) Muscle weakness (generalized) (06/18/23) Iliotibial band syndrome, right leg (06/18/23) Unspecified urinary incontinence (06/18/23) Urgency of urination (06/18/23) Physical Therapy Treatment Note PT-OP-A Visit Information Start: 06/03/23 08:11 Freq: Status: Active Protocol: Document 06/18/23 10:34 [facility] (Rec: 06/18/23 11:18 [facility] [id number]) Out-Patient Physical Therapy Visit Information Visit Information Visit Type Treatment Note Visit Start Time 10:35 Visit Stop Time 11:20 Total Visit Minutes 45 Visit Number 2 PT-OP-B Current Condition Start: 06/03/23 08:11 Freq: Status: Active Protocol: Document 06/03/23 09:45 [facility] (Rec: 06/03/23 10:12 [facility] [id number]) Current Condition History of Current Condition Onset Date 6 months ago Current Complaints urinary urge incontinence and right sided hip pain History of Current Condition 73 year old female who presents to PT with urinary urgency and leakage and right sided hip pain. 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 She does report her she bursitis in the right hip and a bone spur. She had a history of Urinary tract infection that lasted a long time and began late summer. Her urgency is better but still still has a strong urge to go but is not leaking. She will wake 0-1 times per night. Her hip is a bigger issue at this time. Sleeping is difficult with her else. Her hip is sore as soon as she wakes up, the more she is up and moving around it seems to get better. She is seeing chiropractor and did some fascial work which was really helpful. She has increased pain with stairs and she feels it mostly going down. She does report a torn meniscus in the left knee. She walks approx 15 min prior to the pain starting. Treatment Goals Patient/Caregiver Goals pts goals include reducing urinary leakage and urgency as well as reducing hip pain and increasing strength for walking and daily activities. PT-OP-C Subjective Start: 06/03/23 08:11 Freq: Status: Active Protocol: Document 06/18/23 10:34 [facility] (Rec: 06/18/23 11:18 [facility] [id number]) OP-PT Subjective Patient Comments Patient Comments Melani reports her hip is livable now and she has been trying to work on her stretches Patient Reported Progress Improving PT-OP-F Manual Assessment Start: 06/03/23 08:11 Freq: Status: Active Protocol: Document 06/03/23 09:45 [facility] (Rec: 06/03/23 11:34 [facility] [id number]) Manual Assessments Soft Tissue Assessment Soft Tissue Mobility Assessment tightness of the fascial tissue of the adductors, ITB, quadriceps, and piriformis on the right side tightness of the iliopsoas on the right side Joint Mobility Assessment Joint Mobility Assessment goood joint mobility in all directions of the right hip Other Manual Assessments Other Manual Assessments sidelying quad stretch brings on c/o tightness and pain PT-OP-I Pelvic Floor Start: 06/03/23 08:11 Freq: Status: Active Protocol: Document 06/03/23 09:45 [facility] (Rec: 06/03/23 11:36 [facility] [id number]) Pelvic Floor Assessment Urine Urinary Symptoms Urge Sensation,Incomplete Emptying Other Urinary Symptoms Melani has had a history of a UTI that needed to be treated with antibiotics Leakage Size Small Leakage Cause Cough,Sneeze,Urge Nocturia 0-1 PT-OP-J Posture/Palpation/Skin Start: 06/03/23 08:11 Freq: Status: Active Protocol: Document 06/03/23 09:45 [facility] (Rec: 06/03/23 11:52 [facility] [id number]) Palpation Assessment Location right lateral and posterior hip Palpation Findings Soft Tissue Tightness,Spasm, Muscle Guarding,Tenderness Palpation Details tenderness at the R hip both laterally and posteriorly with muscle guarding and spasm PT-OP-M Strength Start: 06/03/23 08:11 Freq: Status: Active Protocol: Document 06/03/23 09:45 [facility] (Rec: 06/03/23 11:35 [facility] [id number]) Trunk Strength Trunk Manual Muscle Testing Core Stabilization poor core stabilization and weakness of the core and pelvic floor Hip Strength Hip Manual Muscle Testing Right Abduction 2+ Poor+ External Rotation 3 Fair PT-OP-Q Treatments Start: 06/03/23 08:11 Freq: Status: Active Protocol: Document 06/18/23 10:34 [facility] (Rec: 06/18/23 11:18 [facility] [id number]) Therapeutic Exercises Supine Exercises supine ITB stretch Reps/Minutes hold 1-2 min using a strap supine pelvic floor modified squat stretch Reps/Minutes hold 1-2 min modified piriformis stretch Reps/Minutes hold 1-2 min Comments cross ankle over knee without pulling up legs single knee to chest Reps/Minutes hold 1-2 min Sidelying Exercises hip abduction Reps/Minutes 2 x 10 reps Comments AAROM clam shells exerercis Reps/Minutes 2 x 10 Comments added to HEP Manual Therapy Treatment Soft Tissue Mobilization soft tissue release of the lateral hip and ITB Body Location right hip Body Position left sidelying Comments MFR of the ITB from hip to knee PT-OP-T Assessment and Plan Start: 06/03/23 08:11 Freq: Status: Active Protocol: Document 06/18/23 10:30 [facility] (Rec: 06/19/23 11:58 [facility] [id number]) Physical Therapy Assessment Assessment Summary Assessment Melani is tolerating her exercise well and felt she got relief for a few days after her first PT visit. I worked on MFR techniques over the right hip and ITB and she is restricted in the fascia on the right ITB . She was able to add in clam shells to her HEP but hip abduction with longer lever arm was too much and required assist. Physical Therapy Plan Frequency and Duration Frequency of Treatment 2x/Week Duration of treatment (weeks) 8 Plan of Care Start Date 06/03/23 Plan of Care End Date 07/29/23 Therapeutic Interventions Therapeutic Interventions Home Exercise Program,Manual Therapy,Neuromuscular Re- education,Patient/Caregiver Education,Soft Tissue Mobilization,Therapeutic Exercises Modalities Biofeedback Next Visit Focus/Plan Next Note Type Treatment Note Next Visit Plan review exercises and progress to lateral hip abduction and standing squats
--- NOTE | 2023-06-25 09:52 | PT.OTN ---
Current Diagnoses Pain in right hip (06/25/23) Muscle weakness (generalized) (06/25/23) Iliotibial band syndrome, right leg (06/25/23) Unspecified urinary incontinence (06/25/23) Urgency of urination (06/25/23) Physical Therapy Treatment Note PT-OP-A Visit Information Start: 06/03/23 08:11 Freq: Status: Active Protocol: Document 06/25/23 09:05 [facility] (Rec: 06/25/23 09:49 [facility] [id number]) Out-Patient Physical Therapy Visit Information Visit Information Visit Type Treatment Note Visit Start Time 09:05 Visit Stop Time 09:45 Total Visit Minutes 40 Visit Number 3 PT-OP-B Current Condition Start: 06/03/23 08:11 Freq: Status: Active Protocol: Document 06/03/23 09:45 [facility] (Rec: 06/03/23 10:12 [facility] [id number]) Current Condition History of Current Condition Onset Date 6 months ago Current Complaints urinary urge incontinence and right sided hip pain History of Current Condition 73 year old female who presents to PT with urinary urgency and leakage and right sided hip pain. 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 She does report her she bursitis in the right hip and a bone spur. She had a history of Urinary tract infection that lasted a long time and began late summer. Her urgency is better but still still has a strong urge to go but is not leaking. She will wake 0-1 times per night. Her hip is a bigger issue at this time. Sleeping is difficult with her else. Her hip is sore as soon as she wakes up, the more she is up and moving around it seems to get better. She is seeing chiropractor and did some fascial work which was really helpful. She has increased pain with stairs and she feels it mostly going down. She does report a torn meniscus in the left knee. She walks approx 15 min prior to the pain starting. Treatment Goals Patient/Caregiver Goals pts goals include reducing urinary leakage and urgency as well as reducing hip pain and increasing strength for walking and daily activities. PT-OP-C Subjective Start: 06/03/23 08:11 Freq: Status: Active Protocol: Document 06/25/23 09:05 [facility] (Rec: 06/25/23 09:49 [facility] [id number]) OP-PT Subjective Patient Comments Patient Comments Melani notes she feels like she is doing much better with her hip and has been able to return to her exercise class. She does feel tight in the front of her thigh today PT-OP-F Manual Assessment Start: 06/03/23 08:11 Freq: Status: Active Protocol: Document 06/03/23 09:45 [facility] (Rec: 06/03/23 11:34 [facility] [id number]) Manual Assessments Soft Tissue Assessment Soft Tissue Mobility Assessment tightness of the fascial tissue of the adductors, ITB, quadriceps, and piriformis on the right side tightness of the iliopsoas on the right side Joint Mobility Assessment Joint Mobility Assessment goood joint mobility in all directions of the right hip Other Manual Assessments Other Manual Assessments sidelying quad stretch brings on c/o tightness and pain PT-OP-I Pelvic Floor Start: 06/03/23 08:11 Freq: Status: Active Protocol: Document 06/03/23 09:45 [facility] (Rec: 06/03/23 11:36 [facility] [id number]) Pelvic Floor Assessment Urine Urinary Symptoms Urge Sensation,Incomplete Emptying Other Urinary Symptoms Melani has had a history of a UTI that needed to be treated with antibiotics Leakage Size Small Leakage Cause Cough,Sneeze,Urge Nocturia 0-1 PT-OP-M Strength Start: 06/03/23 08:11 Freq: Status: Active Protocol: Document 06/03/23 09:45 [facility] (Rec: 06/03/23 11:35 [facility] [id number]) Trunk Strength Trunk Manual Muscle Testing Core Stabilization poor core stabilization and weakness of the core and pelvic floor Hip Strength Hip Manual Muscle Testing Right Abduction 2+ Poor+ External Rotation 3 Fair PT-OP-Q Treatments Start: 06/03/23 08:11 Freq: Status: Active Protocol: Document 06/25/23 09:05 [facility] (Rec: 06/25/23 09:49 [facility] [id number]) Therapeutic Exercises Standing Exercises standing quad stretch with chair assist Reps/Minutes 2 reps holding 30 seconds Manual Therapy Treatment Soft Tissue Mobilization Right quad MFR Comments pt tolerated well and was shown how to self stretch her quad soft tissue release of the lateral hip and ITB Body Location right hip Body Position left sidelying Comments MFR of the ITB from hip to knee Manual Techniques manual quad stretch Comments left sidelying manual quad stretch to the right quad, PT-OP-T Assessment and Plan Start: 06/03/23 08:11 Freq: Status: Active Protocol: Document 06/25/23 09:05 [facility] (Rec: 06/25/23 09:52 [facility] [id number]) Physical Therapy Assessment Assessment Summary Assessment Melani is doing much better now with her hip and pain levels have decreased. She has been able to return to her exercise class at the [facility]. She is ready now to start working on her pelvic floor. I will continue to strengthen her hip as we work on pelvic floor exercises as hip abduction is still weak and it is difficult for her to do in sidelying against gravity Physical Therapy Plan Frequency and Duration Frequency of Treatment 2x/Week Duration of treatment (weeks) 8 Plan of Care Start Date 06/03/23 Plan of Care End Date 07/29/23 Therapeutic Interventions Therapeutic Interventions Home Exercise Program,Manual Therapy,Neuromuscular Re- education,Patient/Caregiver Education,Soft Tissue Mobilization,Therapeutic Exercises Modalities Biofeedback Next Visit Focus/Plan Next Note Type Treatment Note Next Visit Plan Begin EMG biofeedback for pelvic floor strengthening next visit
--- NOTE | 2023-07-08 16:37 | PT.OTN ---
Current Diagnoses Pain in right hip (07/02/23) Muscle weakness (generalized) (07/02/23) Iliotibial band syndrome, right leg (07/02/23) Unspecified urinary incontinence (07/02/23) Urgency of urination (07/02/23) Physical Therapy Treatment Note PT-OP-A Visit Information Start: 06/03/23 08:11 Freq: Status: Active Protocol: Document 07/02/23 11:16 [facility] (Rec: 07/02/23 12:00 [facility] [id number]) Out-Patient Physical Therapy Visit Information Visit Information Visit Type Treatment Note Visit Start Time 11:15 Visit Stop Time 12:00 Total Visit Minutes 45 Visit Number 4 PT-OP-B Current Condition Start: 06/03/23 08:11 Freq: Status: Active Protocol: Document 06/03/23 09:45 [facility] (Rec: 06/03/23 10:12 [facility] [id number]) Current Condition History of Current Condition Onset Date 6 months ago Current Complaints urinary urge incontinence and right sided hip pain History of Current Condition 73 year old female who presents to PT with urinary urgency and leakage and right sided hip pain. 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 She does report her she bursitis in the right hip and a bone spur. She had a history of Urinary tract infection that lasted a long time and began late summer. Her urgency is better but still still has a strong urge to go but is not leaking. She will wake 0-1 times per night. Her hip is a bigger issue at this time. Sleeping is difficult with her else. Her hip is sore as soon as she wakes up, the more she is up and moving around it seems to get better. She is seeing chiropractor and did some fascial work which was really helpful. She has increased pain with stairs and she feels it mostly going down. She does report a torn meniscus in the left knee. She walks approx 15 min prior to the pain starting. Treatment Goals Patient/Caregiver Goals pts goals include reducing urinary leakage and urgency as well as reducing hip pain and increasing strength for walking and daily activities. PT-OP-C Subjective Start: 06/03/23 08:11 Freq: Status: Active Protocol: Document 07/02/23 11:16 [facility] (Rec: 07/02/23 12:00 [facility] [id number]) OP-PT Subjective Patient Comments Patient Comments hip is doing better overall and exercise class helps the hip but it is aggravating the left knee PT-OP-F Manual Assessment Start: 06/03/23 08:11 Freq: Status: Active Protocol: Document 06/03/23 09:45 [facility] (Rec: 06/03/23 11:34 [facility] [id number]) Manual Assessments Soft Tissue Assessment Soft Tissue Mobility Assessment tightness of the fascial tissue of the adductors, ITB, quadriceps, and piriformis on the right side tightness of the iliopsoas on the right side Joint Mobility Assessment Joint Mobility Assessment goood joint mobility in all directions of the right hip Other Manual Assessments Other Manual Assessments sidelying quad stretch brings on c/o tightness and pain PT-OP-I Pelvic Floor Start: 06/03/23 08:11 Freq: Status: Active Protocol: Document 06/03/23 09:45 [facility] (Rec: 06/03/23 11:36 [facility] [id number]) Pelvic Floor Assessment Urine Urinary Symptoms Urge Sensation,Incomplete Emptying Other Urinary Symptoms Melani has had a history of a UTI that needed to be treated with antibiotics Leakage Size Small Leakage Cause Cough,Sneeze,Urge Nocturia 0-1 PT-OP-M Strength Start: 06/03/23 08:11 Freq: Status: Active Protocol: Document 06/03/23 09:45 [facility] (Rec: 06/03/23 11:35 [facility] [id number]) Trunk Strength Trunk Manual Muscle Testing Core Stabilization poor core stabilization and weakness of the core and pelvic floor Hip Strength Hip Manual Muscle Testing Right Abduction 2+ Poor+ External Rotation 3 Fair PT-OP-Q Treatments Start: 06/03/23 08:11 Freq: Status: Active Protocol: Document 07/02/23 11:16 [facility] (Rec: 07/08/23 16:36 [facility] [id number]) Therapeutic Exercises Supine Exercises modified piriformis stretch Reps/Minutes hold 1-2 min Comments cross ankle over knee without pulling up legs single knee to chest Reps/Minutes hold 1-2 min Sidelying Exercises clam shells exerercis Reps/Minutes 2 x 10 Comments added to HEP Manual Therapy Treatment Soft Tissue Mobilization Right quad MFR Comments pt tolerated well and was shown how to self stretch her quad soft tissue release of the lateral hip and ITB Body Location right hip Body Position left sidelying Comments MFR of the ITB from hip to knee PT-OP-T Assessment and Plan Start: 06/03/23 08:11 Freq: Status: Active Protocol: Document 07/02/23 11:16 [facility] (Rec: 07/08/23 16:36 [facility] [id number]) Physical Therapy Assessment Goals 3 Impairment muscle guarding and fascial tightness of the right side adductors, ITB, piriformis, iliopsoas Short Term Goal (STG) Melani is educated in a home stretching program to address muscular tightness and to help decrease the strain onto her right hip STG Duration 4 weeks Fuel Cell Assembler Goal (LTG) Melani presents with decreased fascial tightness and improved flexibility of her muscles LTG Duration 8 weeks 2 Impairment Right sided hip pain made worse with laying on her right hip, walking, and stairs especially going down stairs Custodial Goal (LTG) Melani reports a overall reduction in her hip pain and she is able to return to sleeping on her right side at night LTG Duration 8 weeks+ 1 Impairment Decreased hip strength on the right side with hip abduction 2+/5 and hip ER 3/5 MMT Short Term Goal (STG) Melani is educated on exercises to begin working on lateral hip strength STG Duration 2-3 weeks Fuel Cell Assembler Goal (LTG) Melani presents with increased strength of the right hip and demonstrates improved muscle grade by 1 muscle grade or better LTG Duration 8+ weeks Assessment Summary Assessment Melani needed one more session for her hip. She does present with decreased guarding overall and we will start pelvic floor exercises next visit Physical Therapy Plan Frequency and Duration Frequency of Treatment 2x/Week Duration of treatment (weeks) 8 Plan of Care Start Date 06/03/23 Plan of Care End Date 07/29/23 Therapeutic Interventions Therapeutic Interventions Home Exercise Program,Manual Therapy,Neuromuscular Re- education,Patient/Caregiver Education,Soft Tissue Mobilization,Therapeutic Exercises Modalities Biofeedback Next Visit Focus/Plan Next Note Type Treatment Note Next Visit Plan Begin EMG biofeedback for pelvic floor strengthening next visit
--- NOTE | 2023-07-23 12:00 | PT.OPPOC ---
Physical, Occupational & Speech Therapy At [facility] Current Diagnoses Pain in right hip (07/23/23) Muscle weakness (generalized) (07/23/23) Iliotibial band syndrome, right leg (07/23/23) Unspecified urinary incontinence (07/23/23) Urgency of urination (07/23/23) Visit Care Team Role Provider Type Aramis Cunningham MD Attending Provider Physician Family Provider Primary Care Provider Referring Provider Specialty: [facility] Practice Address: [facility] [place], [place], [facility] Email: [email or web address] Plan Of Care PT-OP-T Assessment and Plan Start: 06/03/23 08:11 Freq: Status: Active Protocol: Document 07/23/23 09:00 [facility] (Rec: 07/24/23 11:24 [facility] [id number]) Physical Therapy Assessment Goals 4 Impairment urinary urgency and frequency Short Term Goal (STG) Melani is educated on pelvic floor relaxation to fully empty her bladder and is trained in the urge deference technique STG Duration 4 weeks Snf Goal (LTG) Melani reports a overall reduction in urinary urgency and leakage LTG Duration 12 weeks 3 Impairment muscle guarding and fascial tightness of the right side adductors, ITB, piriformis, iliopsoas Short Term Goal (STG) Melani is educated in a home stretching program to address muscular tightness and to help decrease the strain onto her right hip GOAL MET STG Duration 4 weeks Snf Goal (LTG) Melani presents with decreased fascial tightness and improved flexibility of her muscles Good progress and Melani is working on her stretches for home LTG Duration 8 weeks 2 Impairment Right sided hip pain made worse with laying on her right hip, walking, and stairs especially going down stairs Sleeve Tailor Goal (LTG) Melani reports a overall reduction in her hip pain and she is able to return to sleeping on her right side at night Good progress LTG Duration 8 weeks+ 1 Impairment Decreased hip strength on the right side with hip abduction 2+/5 and hip ER 3/5 MMT Short Term Goal (STG) Melani is educated on exercises to begin working on lateral hip strength Goal met STG Duration 2-3 weeks Snf Goal (LTG) Melani presents with increased strength of the right hip and demonstrates improved muscle grade by 1 muscle grade or better Good progress LTG Duration 8+ weeks Assessment Summary Assessment Melani returns to PT today after not being seen since 07/02. She is doing overall much better with her hip if she does her stretches. She has been able to go to her exercise class and she feels this is helping. She would like to start the EMG biofeedback for pelvic floor strengthening however she is dealing with a chronic UTI and does not want to irritate symptoms. Time was spent today educating on fully emptying her bladder as well as using the estrogen cream for the anterior aspect of the pelvic floor and urethra. We will attempt the EMG biofeedback next visit if pt tolerates. Physical Therapy Plan Frequency and Duration Frequency of Treatment 2x/Week Duration of treatment (weeks) 8 Plan of Care Start Date 07/23/23 Plan of Care End Date 09/17/23 Therapeutic Interventions Therapeutic Interventions Home Exercise Program,Manual Therapy,Neuromuscular Re- education,Patient/Caregiver Education,Soft Tissue Mobilization,Therapeutic Exercises Modalities Biofeedback Next Visit Focus/Plan Next Note Type Treatment Note Next Visit Plan continue with hip strengthening and progress to pelvic floor assessment with EMG biofeedback Plan of Care Dates Plan of Care Start Date 07/23/23 Plan of Care End Date 09/17/23 Electronically Signed by: Lisette Abbott, PT 07/24/23 [id number] If you are in agreement with this Plan of Care, please return a signed and dated copy. I have reviewed this Plan of Care and certify that the skilled therapy services above are required to meet the patient?s needs. Physician Signature Date Printed Name and Credentials Clinical Instructor Signature Printed Name and Credentials
--- NOTE | 2023-07-23 12:00 | PT.OTN ---
Current Diagnoses Pain in right hip (07/23/23) Muscle weakness (generalized) (07/23/23) Iliotibial band syndrome, right leg (07/23/23) Unspecified urinary incontinence (07/23/23) Urgency of urination (07/23/23) Physical Therapy Treatment Note PT-OP-A Visit Information Start: 06/03/23 08:11 Freq: Status: Active Protocol: Document 07/23/23 12:12 [facility] (Rec: 07/23/23 12:19 [facility] [id number]) Out-Patient Physical Therapy Visit Information Visit Information Visit Type Treatment Note Visit Start Time 09:10 Visit Stop Time 09:40 Total Visit Minutes 30 Visit Number 5 Evaluation Information Evaluation Date 06/03/23 PT-OP-B Current Condition Start: 06/03/23 08:11 Freq: Status: Active Protocol: Document 06/03/23 09:45 [facility] (Rec: 06/03/23 10:12 [facility] [id number]) Current Condition History of Current Condition Onset Date 6 months ago Current Complaints urinary urge incontinence and right sided hip pain History of Current Condition 73 year old female who presents to PT with urinary urgency and leakage and right sided hip pain. 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 She does report her she bursitis in the right hip and a bone spur. She had a history of Urinary tract infection that lasted a long time and began late summer. Her urgency is better but still still has a strong urge to go but is not leaking. She will wake 0-1 times per night. Her hip is a bigger issue at this time. Sleeping is difficult with her else. Her hip is sore as soon as she wakes up, the more she is up and moving around it seems to get better. She is seeing chiropractor and did some fascial work which was really helpful. She has increased pain with stairs and she feels it mostly going down. She does report a torn meniscus in the left knee. She walks approx 15 min prior to the pain starting. Treatment Goals Patient/Caregiver Goals pts goals include reducing urinary leakage and urgency as well as reducing hip pain and increasing strength for walking and daily activities. PT-OP-C Subjective Start: 06/03/23 08:11 Freq: Status: Active Protocol: Document 07/23/23 09:12 [facility] (Rec: 07/23/23 09:47 [facility] [id number]) OP-PT Subjective Patient Comments Patient Comments pt notes her hip is doing pretty well and she can do exercises in the am to help it . She is dealing with a UTI that causes her labia to swell up. SHe is using a estrogen cream, it did get better so she stopped the estrogen, she describes it as a constant uncomforable all the time. She started it up again 3 weeks ago. She has been off the antibiotic x 2 weeks. PT-OP-F Manual Assessment Start: 06/03/23 08:11 Freq: Status: Active Protocol: Document 06/03/23 09:45 [facility] (Rec: 06/03/23 11:34 [facility] [id number]) Manual Assessments Soft Tissue Assessment Soft Tissue Mobility Assessment tightness of the fascial tissue of the adductors, ITB, quadriceps, and piriformis on the right side tightness of the iliopsoas on the right side Joint Mobility Assessment Joint Mobility Assessment goood joint mobility in all directions of the right hip Other Manual Assessments Other Manual Assessments sidelying quad stretch brings on c/o tightness and pain PT-OP-I Pelvic Floor Start: 06/03/23 08:11 Freq: Status: Active Protocol: Document 06/03/23 09:45 [facility] (Rec: 06/03/23 11:36 [facility] [id number]) Pelvic Floor Assessment Urine Urinary Symptoms Urge Sensation,Incomplete Emptying Other Urinary Symptoms Melani has had a history of a UTI that needed to be treated with antibiotics Leakage Size Small Leakage Cause Cough,Sneeze,Urge Nocturia 0-1 PT-OP-M Strength Start: 06/03/23 08:11 Freq: Status: Active Protocol: Document 06/03/23 09:45 [facility] (Rec: 06/03/23 11:35 [facility] [id number]) Trunk Strength Trunk Manual Muscle Testing Core Stabilization poor core stabilization and weakness of the core and pelvic floor Hip Strength Hip Manual Muscle Testing Right Abduction 2+ Poor+ External Rotation 3 Fair PT-OP-Q Treatments Start: 06/03/23 08:11 Freq: Status: Active Protocol: Document 07/23/23 09:00 [facility] (Rec: 07/24/23 11:24 [facility] [id number]) Therapeutic Exercises Standing Exercises standing single leg balance with support Reps/Minutes x 2 reps using 1 finger for support standing side steps with theraband Reps/Minutes using railing working on side steps the length of the bar x 2 Self-Care/Home Management Treatment Education Patient Education Home Exercise Program Other Education education on double voiding, working on using a squatty potty to assist with full voiding, education on massaging in the estrogen cream to get the anterior pelvic floor PT-OP-T Assessment and Plan Start: 06/03/23 08:11 Freq: Status: Active Protocol: Document 07/23/23 09:00 [facility] (Rec: 07/24/23 11:24 [facility] [id number]) Physical Therapy Assessment Goals 4 Impairment urinary urgency and frequency Short Term Goal (STG) Melani is educated on pelvic floor relaxation to fully empty her bladder and is trained in the urge deference technique STG Duration 4 weeks Senior Living Goal (LTG) Melani reports a overall reduction in urinary urgency and leakage LTG Duration 12 weeks 3 Impairment muscle guarding and fascial tightness of the right side adductors, ITB, piriformis, iliopsoas Short Term Goal (STG) Melani is educated in a home stretching program to address muscular tightness and to help decrease the strain onto her right hip GOAL MET STG Duration 4 weeks Artificial Stone Setter Goal (LTG) Melani presents with decreased fascial tightness and improved flexibility of her muscles Good progress and Melani is working on her stretches for home LTG Duration 8 weeks 2 Impairment Right sided hip pain made worse with laying on her right hip, walking, and stairs especially going down stairs Senior Living Goal (LTG) Melani reports a overall reduction in her hip pain and she is able to return to sleeping on her right side at night Good progress LTG Duration 8 weeks+ 1 Impairment Decreased hip strength on the right side with hip abduction 2+/5 and hip ER 3/5 MMT Short Term Goal (STG) Melani is educated on exercises to begin working on lateral hip strength Goal met STG Duration 2-3 weeks Artificial Stone Setter Goal (LTG) Melani presents with increased strength of the right hip and demonstrates improved muscle grade by 1 muscle grade or better Good progress LTG Duration 8+ weeks Assessment Summary Assessment Melani returns to PT today after not being seen since 07/02. She is doing overall much better with her hip if she does her stretches. She has been able to go to her exercise class and she feels this is helping. She would like to start the EMG biofeedback for pelvic floor strengthening however she is dealing with a chronic UTI and does not want to irritate symptoms. Time was spent today educating on fully emptying her bladder as well as using the estrogen cream for the anterior aspect of the pelvic floor and urethra. We will attempt the EMG biofeedback next visit if pt tolerates. Physical Therapy Plan Frequency and Duration Frequency of Treatment 2x/Week Duration of treatment (weeks) 8 Plan of Care Start Date 07/23/23 Plan of Care End Date 09/17/23 Therapeutic Interventions Therapeutic Interventions Home Exercise Program,Manual Therapy,Neuromuscular Re- education,Patient/Caregiver Education,Soft Tissue Mobilization,Therapeutic Exercises Modalities Biofeedback Next Visit Focus/Plan Next Note Type Treatment Note Next Visit Plan continue with hip strengthening and progress to pelvic floor assessment with EMG biofeedback
--- NOTE | 2023-08-05 16:29 | PT.OTN ---
Current Diagnoses Pain in right hip (08/05/23) Muscle weakness (generalized) (08/05/23) Iliotibial band syndrome, right leg (08/05/23) Unspecified urinary incontinence (08/05/23) Urgency of urination (08/05/23) Physical Therapy Treatment Note PT-OP-A Visit Information Start: 06/03/23 08:11 Freq: Status: Active Protocol: Document 08/05/23 14:35 [facility] (Rec: 08/05/23 15:30 [facility] [id number]) Out-Patient Physical Therapy Visit Information Visit Information Visit Type Treatment Note Visit Start Time 14:30 Visit Stop Time 15:10 Total Visit Minutes 40 Visit Number 6 PT-OP-B Current Condition Start: 06/03/23 08:11 Freq: Status: Active Protocol: Document 06/03/23 09:45 [facility] (Rec: 06/03/23 10:12 [facility] [id number]) Current Condition History of Current Condition Onset Date 6 months ago Current Complaints urinary urge incontinence and right sided hip pain History of Current Condition 73 year old female who presents to PT with urinary urgency and leakage and right sided hip pain. 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 She does report her she bursitis in the right hip and a bone spur. She had a history of Urinary tract infection that lasted a long time and began late summer. Her urgency is better but still still has a strong urge to go but is not leaking. She will wake 0-1 times per night. Her hip is a bigger issue at this time. Sleeping is difficult with her else. Her hip is sore as soon as she wakes up, the more she is up and moving around it seems to get better. She is seeing chiropractor and did some fascial work which was really helpful. She has increased pain with stairs and she feels it mostly going down. She does report a torn meniscus in the left knee. She walks approx 15 min prior to the pain starting. Treatment Goals Patient/Caregiver Goals pts goals include reducing urinary leakage and urgency as well as reducing hip pain and increasing strength for walking and daily activities. PT-OP-C Subjective Start: 06/03/23 08:11 Freq: Status: Active Protocol: Document 08/05/23 14:35 [facility] (Rec: 08/05/23 15:30 [facility] [id number]) OP-PT Subjective Patient Comments Patient Comments Melani notes her hip continues to do well, she notes her vaginal tissue is still really irritated and she does not feel she can begin EMG biofeedback today or pelvic floor muscle exercises PT-OP-F Manual Assessment Start: 06/03/23 08:11 Freq: Status: Active Protocol: Document 06/03/23 09:45 [facility] (Rec: 06/03/23 11:34 [facility] [id number]) Manual Assessments Soft Tissue Assessment Soft Tissue Mobility Assessment tightness of the fascial tissue of the adductors, ITB, quadriceps, and piriformis on the right side tightness of the iliopsoas on the right side Joint Mobility Assessment Joint Mobility Assessment goood joint mobility in all directions of the right hip Other Manual Assessments Other Manual Assessments sidelying quad stretch brings on c/o tightness and pain PT-OP-I Pelvic Floor Start: 06/03/23 08:11 Freq: Status: Active Protocol: Document 06/03/23 09:45 [facility] (Rec: 06/03/23 11:36 [facility] [id number]) Pelvic Floor Assessment Urine Urinary Symptoms Urge Sensation,Incomplete Emptying Other Urinary Symptoms Melani has had a history of a UTI that needed to be treated with antibiotics Leakage Size Small Leakage Cause Cough,Sneeze,Urge Nocturia 0-1 PT-OP-M Strength Start: 06/03/23 08:11 Freq: Status: Active Protocol: Document 06/03/23 09:45 [facility] (Rec: 06/03/23 11:35 [facility] [id number]) Trunk Strength Trunk Manual Muscle Testing Core Stabilization poor core stabilization and weakness of the core and pelvic floor Hip Strength Hip Manual Muscle Testing Right Abduction 2+ Poor+ External Rotation 3 Fair PT-OP-Q Treatments Start: 06/03/23 08:11 Freq: Status: Active Protocol: Document 08/05/23 14:35 [facility] (Rec: 08/05/23 15:30 [facility] [id number]) Therapeutic Exercises Supine Exercises supine pelvic floor modified squat stretch Reps/Minutes hold 1-2 min Other Exercises prone Reps/Minutes x 1 rep Manual Therapy Treatment Soft Tissue Mobilization MFR over the bladder and suprapubic fascia Comments worked in supine over the bladder and suprapubic fascia, tenderness and tightness noted on the right side. Melani was educated in self massage for home care Self-Care/Home Management Treatment Education Patient Education Home Exercise Program Other Education added in cobra stretch, pt educated in self abdominal massage to help reduce bladder urgency, discussed time spent on toilet and reviewed pelvic floor relaxation techniques, PT-OP-T Assessment and Plan Start: 06/03/23 08:11 Freq: Status: Active Protocol: Document 08/05/23 14:35 [facility] (Rec: 08/05/23 15:30 [facility] [id number]) Physical Therapy Assessment Assessment Summary Assessment Melani would like to start working on pelvic floor strength however she still feels that her vaginal tissue is irritated from UTI and then 3 rounds of antibiotics. She is using a probiotic. Today I assessed her suprapubic fascia and she is tight and guarded on the right side. MFR was initiated to help calm down bladder irritation. Physical Therapy Plan Frequency and Duration Frequency of Treatment 2x/Week Duration of treatment (weeks) 8 Plan of Care Start Date 07/23/23 Plan of Care End Date 09/17/23 Therapeutic Interventions Therapeutic Interventions Home Exercise Program,Manual Therapy,Neuromuscular Re- education,Patient/Caregiver Education,Soft Tissue Mobilization,Therapeutic Exercises Modalities Biofeedback Next Visit Focus/Plan Next Note Type Treatment Note Next Visit Plan recheck in with how Melani did with self abdominal massage, probiotics, and cobra stretches to open up the lower abdominal fascia. Begin pelvic floor training if pt is able
--- NOTE | 2023-09-02 09:43 | PT.OTN ---
Current Diagnoses Pain in right hip (09/02/23) Muscle weakness (generalized) (09/02/23) Iliotibial band syndrome, right leg (09/02/23) Unspecified urinary incontinence (09/02/23) Urgency of urination (09/02/23) Physical Therapy Treatment Note PT-OP-A Visit Information Start: 06/03/23 08:11 Freq: Status: Active Protocol: Document 09/02/23 08:54 [facility] (Rec: 09/02/23 09:43 [facility] [id number]) Out-Patient Physical Therapy Visit Information Visit Information Visit Type Treatment Note Visit Start Time 09:00 Visit Stop Time 09:45 Visit Number 7 PT-OP-B Current Condition Start: 06/03/23 08:11 Freq: Status: Active Protocol: Document 06/03/23 09:45 [facility] (Rec: 06/03/23 10:12 [facility] [id number]) Current Condition History of Current Condition Onset Date 6 months ago Current Complaints urinary urge incontinence and right sided hip pain History of Current Condition 73 year old female who presents to PT with urinary urgency and leakage and right sided hip pain. 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 She does report her she bursitis in the right hip and a bone spur. She had a history of Urinary tract infection that lasted a long time and began late summer. Her urgency is better but still still has a strong urge to go but is not leaking. She will wake 0-1 times per night. Her hip is a bigger issue at this time. Sleeping is difficult with her else. Her hip is sore as soon as she wakes up, the more she is up and moving around it seems to get better. She is seeing chiropractor and did some fascial work which was really helpful. She has increased pain with stairs and she feels it mostly going down. She does report a torn meniscus in the left knee. She walks approx 15 min prior to the pain starting. Treatment Goals Patient/Caregiver Goals pts goals include reducing urinary leakage and urgency as well as reducing hip pain and increasing strength for walking and daily activities. PT-OP-C Subjective Start: 06/03/23 08:11 Freq: Status: Active Protocol: Document 09/02/23 08:54 [facility] (Rec: 09/02/23 09:43 [facility] [id number]) OP-PT Subjective Patient Comments Patient Comments she is almost sleeping through the night again, still a little bit of urgency. She is drinking cranbery juice and doing the sauerkrut and feel like this has helped reduce her irritation. Melani also reports as long as she is going to her exercise class and doing her hip exercises her hip is doing better. PT-OP-F Manual Assessment Start: 06/03/23 08:11 Freq: Status: Active Protocol: Document 06/03/23 09:45 [facility] (Rec: 06/03/23 11:34 [facility] [id number]) Manual Assessments Soft Tissue Assessment Soft Tissue Mobility Assessment tightness of the fascial tissue of the adductors, ITB, quadriceps, and piriformis on the right side tightness of the iliopsoas on the right side Joint Mobility Assessment Joint Mobility Assessment goood joint mobility in all directions of the right hip Other Manual Assessments Other Manual Assessments sidelying quad stretch brings on c/o tightness and pain PT-OP-I Pelvic Floor Start: 06/03/23 08:11 Freq: Status: Active Protocol: Document 06/03/23 09:45 [facility] (Rec: 06/03/23 11:36 [facility] [id number]) Pelvic Floor Assessment Urine Urinary Symptoms Urge Sensation,Incomplete Emptying Other Urinary Symptoms Melani has had a history of a UTI that needed to be treated with antibiotics Leakage Size Small Leakage Cause Cough,Sneeze,Urge Nocturia 0-1 PT-OP-M Strength Start: 06/03/23 08:11 Freq: Status: Active Protocol: Document 06/03/23 09:45 [facility] (Rec: 06/03/23 11:35 [facility] [id number]) Trunk Strength Trunk Manual Muscle Testing Core Stabilization poor core stabilization and weakness of the core and pelvic floor Hip Strength Hip Manual Muscle Testing Right Abduction 2+ Poor+ External Rotation 3 Fair PT-OP-Q Treatments Start: 06/03/23 08:11 Freq: Status: Active Protocol: Document 09/02/23 08:54 [facility] (Rec: 09/02/23 09:43 [facility] [id number]) Therapeutic Exercises Supine Exercises supine hip abduction with theraband Equipment Used level 2 TB Reps/Minutes x 20 reps balls squeeze with pelvic floor contraction Reps/Minutes x 10 reps 5 sec hold 10 sec relax Comments average 11.2 pelvic floor quick contractions Reps/Minutes x 10 reps pelvic floor long holds Equipment Used average 14.4 and max 28.6 Reps/Minutes 10 seconds on 10 sec off Self-Care/Home Management Treatment Education Patient Education Joint Protection Other Education Melani was educated in the urge deference technique and bladder retraining. PT-OP-T Assessment and Plan Start: 06/03/23 08:11 Freq: Status: Active Protocol: Document 09/02/23 08:54 [facility] (Rec: 09/02/23 09:43 [facility] [id number]) Physical Therapy Assessment Goals 4 Impairment urinary urgency and frequency Short Term Goal (STG) Melani is educated on pelvic floor relaxation to fully empty her bladder and is trained in the urge deference technique GOAL MET STG Duration 4 weeks [facility] Goal (LTG) Melani reports a overall reduction in urinary urgency and leakage GOAL MET LTG Duration 12 weeks 3 Impairment muscle guarding and fascial tightness of the right side adductors, ITB, piriformis, iliopsoas Short Term Goal (STG) Melani is educated in a home stretching program to address muscular tightness and to help decrease the strain onto her right hip GOAL MET STG Duration 4 weeks Or Nurse Manager Goal (LTG) Melani presents with decreased fascial tightness and improved flexibility of her muscles Good progress and Melani is working on her stretches for home LTG Duration 8 weeks 2 Impairment Right sided hip pain made worse with laying on her right hip, walking, and stairs especially going down stairs [facility] Goal (LTG) Melani reports a overall reduction in her hip pain and she is able to return to sleeping on her right side at night Good progress LTG Duration 8 weeks+ 1 Impairment Decreased hip strength on the right side with hip abduction 2+/5 and hip ER 3/5 MMT Short Term Goal (STG) Melani is educated on exercises to begin working on lateral hip strength Goal met STG Duration 2-3 weeks Or Nurse Manager Goal (LTG) Melani presents with increased strength of the right hip and demonstrates improved muscle grade by 1 muscle grade or better Good progress LTG Duration 8+ weeks Assessment Summary Assessment Melani presents with overall decreased vaginal irritation today and she was able to resume the EMGbiofeedback to look at pelvic floor strength. She did really well with pelvic floor long holds today with average of 14.4 and max of 28.6. Melani was educated on the urge deference technique for home. At this point she is experiencing very little leakage. Melani is presenting with Ind of her HEP at this time and has really good progress on her goals. She will be discharged to a [facility] Physical Therapy Plan Discharge Physical Therapy Discharge Reasons Goals Met
== END 2023-09-10 09:46 | disposition home or self-care (01) ==
LOC: PHYS 09:00
PROVIDERS: Family Provider Family Medicine; PCP Family Medicine; Referring Provider Family Medicine; Visit Provider Family Medicine
DX: R32 Unspecified urinary incontinence (principal); R39.15 Urgency of urination; M25.551 Pain in right hip; M62.81 Muscle weakness (generalized); M76.31 Iliotibial band syndrome, right leg
CPT/HCPCS: 97035; 97110; 97140; 97535

== ENCOUNTER 2023-12-18 15:07 | Emergency (ER) | payer MEDICARE, OTHER, SELFPAY ==
[2023-12-18 15:23] VITALS: BP 132/66; PULSE 84; RESP 18; TEMP 36.8; O2SAT 95; BMI 27.4
[2023-12-18 16:34] LABS: Add Manual Diff / Slide Review NO; Basophils Absolute Auto 0 /uL (0-100); Basophils Percent Auto 0.1 % (0-2); Eosinophils Absolute Auto 0 /uL (0-450); Eosinophils Percent Auto 0.1 % (2-4); Hematocrit 41.8 % (36-46); Hemoglobin 14.8 g/dL (12.0-16.0); Lymphocytes Absolute Auto 500 /uL (1100-4500); Lymphocytes Percent Auto 4.2 % (25-40); Mean Corpuscular HGB Conc 35.4 % (30-36); Mean Corpuscular Hemoglobin 34.8 PG (26-34); Mean Corpuscular Volume 98.4 fL (80-100); Monocytes Absolute Auto 1600 /uL (0-900); Monocytes Percent Auto 12.4 % (3-14); Neutrophils Absolute Auto 10900 /uL (1500-7000); Neutrophils Percent Auto 83.2 % (50-75); Platelet Count 150 X10^3/uL (150-400); Red Blood Cell Count 4.25 X10^6/uL (4.0-5.2); Red Cell Distribution Width 13.5 % (11.6-14.8); White Blood Cell Count 13.1 X10^3/uL (4.5-11.0)
[2023-12-18 16:38] LABS: Alanine Aminotransferase 14 IU/L (<35); Albumin 3.8 g/dL (3.5-5.0); Albumin Globulin Ratio 1.2 (1.0-2.8); Alkaline Phosphatase 62 U/L (38-126); Aspartate Aminotransferase 24 IU/L (14-36); BUN Creatinine Ratio 20.5 (6-22); Bilirubin Total 1.1 mg/dL (0.2-1.3); Blood Urea Nitrogen 17 mg/dL (7-17); Calcium 8.2 mg/dL (8.4-10.2); Carbon Dioxide 24 mmol/L (22-32); Chloride 100 mmol/L (98-107); Estimated Glomerular Filt Rate > 60 mL/min (>60); Globulin 3.1 g/dL (1.7-4.1); Glucose 121 mg/dL (80-110); HEMOLYSIS 21 (0-50); Lipase 82 U/L (23-300); Sodium 133 mmol/L (137-145); Total Protein 6.9 g/dL (6.3-8.2)
[2023-12-18] MEDS: ONDANSETRON 4 MG/2 ML INJ IV (16:38)
[2023-12-18 16:40] LABS: Potassium 2.7 mmol/L (3.4-5.1)
[2023-12-18 17:01] LABS: Appearance Urine UA SL CLOUDY; Bilirubin Urine UA 2+ (NEGATIVE); Color Urine UA YELLOW; Glucose Urine UA NEGATIVE (Negative); Ketones Urine UA 1+ (NEGATIVE); Leukocyte Esterase Urine UA NEGATIVE (NEGATIVE); Nitrite Urine UA POSITIVE (Negative); Occult Blood Urine UA 3+ (Negative); Protein Urine UA 2+ (Negative); Specific Gravity Urine UA 1.025 (1.000-1.035)
[2023-12-18 17:02] LABS: pH Urine UA 5.5 (4.5-8.0)
[2023-12-18] MEDS: POTASSIUM CHLORIDE IN WATER 10 MEQ/100 ML PIGGYBACK 100 MEQ IV ×2 (17:06→18:19)
[2023-12-18] MEDS: POTASSIUM CHLORIDE 20 MEQ/15 ML UDC 40 MEQ PO (17:06)
[2023-12-18] MEDS: SODIUM CHLORIDE 0.9% 1,000 ML 125 ML IV (17:07)
[2023-12-18 17:14] LABS: Bacteria Urine Moderate (10-30); Culture Indicated Urine Specimen Cultured; Hyaline Casts Urine 1-5/LPF; Ictotest Urine Positive (Negative); RBC Urine 0-1/HPF (0-5/HPF); Squamous Epithelial Cell Urine 0-1 /HPF (0-5/HPF); Urine Volume Low Vol <10mL (spun); WBC Urine 10-30/HPF (0-5/HPF)
--- NOTE | 2023-12-18 17:38 | ED.ABDPAIN ---
HPI - Abdominal Pain <Jacob Leiva PA-C - Last Filed: 12/18/23 20:53> General Chief Complaint: Abdominal Pain Stated Complaint: sent by pcp, dehydration, diarrhea, nausea Time Seen by Provider: 12/18/23 16:23 Source: patient Mode of arrival: Ambulatory History of Present Illness HPI narrative: This is a 73-year-old female presents to the emergency department due to to days of diarrhea as well as abdominal cramping. Denies any abnormal foods or exposures that she was aware of. Denies any vomiting but does report some mild nausea. Denies any significant abdominal pain but more described as a cramping sensation. Denies any blood in the stool or fevers. Reports 5 total episodes diarrhea. Related Data Home Medications Medication Instructions Recorded Confirmed Vit A/Vit B1/Vit B2/Vit C/Vi ##0 11/17/11 04/07/22 (#HEXAVITAMIN) citalopram 10 mg tablet 10 mg PO DAILY 01/11/19 09/06/22 famciclovir 250 mg tablet 2,000 mg PO 4-6XD PRN Breakout 01/11/19 09/06/22 hydrochlorothiazide 25 mg tablet 25 mg PO DAILY 01/11/19 09/06/22 levothyroxine 88 mcg tablet 88 mcg PO DAILY 01/11/19 09/06/22 losartan 25 mg tablet 25 mg PO DAILY 01/11/19 09/06/22 Previous Rx's Medication Instructions Recorded hydrocortisone acetate 25 mg 25 mg MI BEDTIME PRN rectal 09/08/22 rectal suppository pain/bleeding #12 ea amoxicillin 500 mg-potassium 1 tab PO Q12H #14 tabs 09/09/22 clavulanate 125 mg tablet (Augmentin) fluconazole 150 mg tablet 150 mg PO ONCE #1 tab 09/09/22 (Diflucan) Allergies Allergy/AdvReac Type Severity Reaction Status Date / Time latex Allergy Severe Rash Verified 09/06/22 09:12 Sulfa (Sulfonamide Allergy Unknown Doesn't Verified 09/06/22 09:12 Antibiotics) remember hydromorphone AdvReac Severe N&V Verified 09/06/22 09:12 meperidine AdvReac Severe N&V Verified 09/06/22 09:12 Review of Systems <Jacob Leiva PA-C - Last Filed: 12/18/23 20:53> Review of Systems Narrative: GENERAL: Denies chills, fatigue, malaise, fever, sweats. HEENT: Denies sinus pain, ear pain, sore throat, difficulty swallowing, dizziness. RESPIRATORY: Denies dyspnea, cough, wheezing, hemoptysis, sputum. CARDIOVASCULAR: Denies chest pain, palpitations, orthopnea, edema, GASTROINTESTINAL: Reports diarrhea, nausea Denies , vomiting, abdominal pain, , constipation, melena. : Denies dysuria, frequency, incontinence, hematuria, urinary retention. MUSCULOSKELETAL: denies weakness, joint pain, or bony pain SKIN: Denies rash, skin lesions, or other NEUROLOGIC: Denies weakness, headache, numbness, change in speech, confusion, seizures, incoordination. PSYCHIATRIC: No concerning psychosocial issues. 12 point review of systems is negative except for those stated above Patient History <Jacob Leiva PA-C - Last Filed: 12/18/23 20:53> Medical History Cough Surgical History Status post appendectomy Status post colonoscopy Social History household members: spouse Smoking Status: Former smoker Smoking Status: Former smoker alcohol intake frequency: holidays/special occasions only Substance Use Type: does not use Exam <Jacob Leiva PA-C - Last Filed: 12/18/23 20:53> Narrative Exam Narrative: GENERAL: Well-developed patient, in mild distress. HEAD: Atraumatic. Normocephalic. EYES: Pupils equal round and reactive. Extraocular motions intact. No scleral icterus. No injection or drainage. ENT: Nose without bleeding, purulent drainage. Throat without erythema, tonsillar hypertrophy or exudate. Airway patent. NECK: Trachea midline. Non tender EXTREMITIES: No edema or joint tenderness. NEURO: AOx3. SKIN: No rash or erythema of visible areas Abdomen: Generalized tenderness to palpation, nondistended Initial Vital Signs Initial Vital Signs: Vital Signs Temperature 98.3 F 12/18/23 15:23 Pulse Rate 84 12/18/23 15:23 Respiratory Rate 18 12/18/23 15:23 Blood Pressure 132/66 12/18/23 15:23 Pulse Oximetry 95 12/18/23 15:23 Oxygen Delivery Method Room Air 12/18/23 15:23 <Mariela Beltran DO - Last Filed: 12/21/23 07:32> Initial Vital Signs Initial Vital Signs: Vital Signs Temperature 98.3 F 12/18/23 15:23 Pulse Rate 84 12/18/23 15:23 Respiratory Rate 18 12/18/23 15:23 Blood Pressure 132/66 12/18/23 15:23 Pulse Oximetry 95 12/18/23 15:23 Oxygen Delivery Method Room Air 12/18/23 15:23 Course <Jacob Leiva PA-C - Last Filed: 12/18/23 20:53> Orders Ordered: Discontinued Medications POTASSIUM CHLORIDE IN WATER (Potassium Cl 10 Meq/100 Ml Ne) 10 meq in 100 mls @ 100 mls/hr IV Q1H NAOMIE Stop: 12/18/23 18:44 Last Infusion: 12/18/23 19:26 Dose: Infused Documented By: Admin: 12/18/23 18:19 Dose: 100 mls/hr Documented By: Infusion: 12/18/23 18:19 Dose: Infused Documented By: Admin: 12/18/23 17:06 Dose: 100 mls/hr Documented By: RB Sodium Chloride (Normal Saline 0.9%) 1,000 mls @ 125 mls/hr IV CONT NAOMIE Last Infusion: 12/18/23 19:27 Dose: Infused Documented By: Admin: 12/18/23 17:07 Dose: 125 mls/hr Documented By: RB Loperamide HCl (Loperamide 2 Mg Capsule) 4 mg PO NOW ONE Stop: 12/18/23 19:43 Last Admin: 12/18/23 20:14 Dose: 4 mg Documented By: HILDAG Ondansetron HCl (Ondansetron 4 Mg Odt) 4 mg PO NOW PRN PRN Reason: Nausea And Vomiting Ondansetron HCl (Ondansetron 4 Mg/2 Ml Inj) 4 mg IV NOW PRN PRN Reason: Nausea And Vomiting Last Admin: 12/18/23 16:38 Dose: 4 mg Documented By: RB Potassium Chloride (Potassium Chloride 20 Meq/15 Ml Udc) 40 meq PO NOW ONE Stop: 12/18/23 16:45 Last Admin: 12/18/23 17:06 Dose: 40 meq Documented By: RB Vital Signs Vital signs: Vital Signs - 8 hr 12/18/23 15:23 12/18/23 18:00 12/18/23 18:30 Temperature 98.3 F Pulse Rate 84 72 70 Respiratory Rate 18 Blood Pressure 132/66 120/60 101/59 L Pulse Oximetry 95 91 93 Oxygen Delivery Method Room Air Room Air Room Air 12/18/23 19:00 Temperature Pulse Rate 73 Respiratory Rate 18 Blood Pressure 110/60 Pulse Oximetry 93 Oxygen Delivery Method Room Air <Mariela Beltran DO - Last Filed: 12/21/23 07:32> Orders Ordered: Discontinued Medications POTASSIUM CHLORIDE IN WATER (Potassium Cl 10 Meq/100 Ml Ne) 10 meq in 100 mls @ 100 mls/hr IV Q1H [facility] Stop: 12/18/23 18:44 Last Infusion: 12/18/23 19:26 Dose: Infused Documented By: Admin: 12/18/23 18:19 Dose: 100 mls/hr Documented By: Infusion: 12/18/23 18:19 Dose: Infused Documented By: Admin: 12/18/23 17:06 Dose: 100 mls/hr Documented By: RB Sodium Chloride (Normal Saline 0.9%) 1,000 mls @ 125 mls/hr IV CONT NAOMIE Last Infusion: 12/18/23 19:27 Dose: Infused Documented By: Admin: 12/18/23 17:07 Dose: 125 mls/hr Documented By: RB Loperamide HCl (Loperamide 2 Mg Capsule) 4 mg PO NOW ONE Stop: 12/18/23 19:43 Last Admin: 12/18/23 20:14 Dose: 4 mg Documented By: HENRI Ondansetron HCl (Ondansetron 4 Mg Odt) 4 mg PO NOW PRN PRN Reason: Nausea And Vomiting Ondansetron HCl (Ondansetron 4 Mg/2 Ml Inj) 4 mg IV NOW PRN PRN Reason: Nausea And Vomiting Last Admin: 12/18/23 16:38 Dose: 4 mg Documented By: RB Potassium Chloride (Potassium Chloride 20 Meq/15 Ml Udc) 40 meq PO NOW ONE Stop: 12/18/23 16:45 Last Admin: 12/18/23 17:06 Dose: 40 meq Documented By: RB Vital Signs Vital signs: Vital Signs - 8 hr 12/18/23 15:23 12/18/23 18:00 12/18/23 18:30 Temperature 98.3 F Pulse Rate 84 72 70 Respiratory Rate 18 Blood Pressure 132/66 120/60 101/59 L Pulse Oximetry 95 91 93 Oxygen Delivery Method Room Air Room Air Room Air 12/18/23 19:00 Temperature Pulse Rate 73 Respiratory Rate 18 Blood Pressure 110/60 Pulse Oximetry 93 Oxygen Delivery Method Room Air MDM - Abdominal Pain <Jacob Leiva PA-C - Last Filed: 12/18/23 20:53> Lab Data 12/18/23 16:12 12/18/23 20:00 Labs: Lab Results 12/18/23 12/18/23 12/18/23 Range/Units 16:12 16:42 20:00 WBC 13.1 H (4.5-11.0) X10^3/uL RBC 4.25 (4.0-5.2) X10^6/uL Hgb 14.8 (12.0-16.0) g/dL Hct 41.8 (36-46) % MCV 98.4 (80-100) fL MCH 34.8 H (26-34) PG MCHC 35.4 (30-36) % RDW 13.5 (11.6-14.8) % Plt Count 150 (150-400) X10^3/uL Neut % (Auto) 83.2 H (50-75) % Lymph % (Auto) 4.2 L (25-40) % Kerr % (Auto) 12.4 (3-14) % Eos % (Auto) 0.1 L (2-4) % Baso % (Auto) 0.1 (0-2) % Neut # (Auto) 98739 H (7468-7675) /uL Lymph # (Auto) 500 L (8002-8664) /uL Kerr # (Auto) 1600 H (0-900) /uL Eos # (Auto) 0 (0-450) /uL Baso # (Auto) 0 (0-100) /uL Sodium 133 L 133 L (137-145) mmol/L Potassium 2.7 L* 4.1 D (3.4-5.1) mmol/L Chloride 100 104 (98-107) mmol/L Carbon Dioxide 24 23 (22-32) mmol/L BUN 17 19 H (7-17) mg/dL Creatinine 0.83 0.84 (0.52-1.04) mg/dL Estimated GFR > 60 > 60 (>60) mL/min BUN/Creatinine Ratio 20.5 22.6 H (6-22) Glucose 121 H 119 H (80-110) mg/dL Calcium 8.2 L 8.2 L (8.4-10.2) mg/dL Total Bilirubin 1.1 1.0 (0.2-1.3) mg/dL AST 24 24 (14-36) IU/L ALT 14 15 (<35) IU/L Alkaline Phosphatase 62 63 (38-126) U/L Total Protein 6.9 7.1 (6.3-8.2) g/dL Albumin 3.8 3.9 (3.5-5.0) g/dL Globulin 3.1 3.2 (1.7-4.1) g/dL Albumin/Globulin Ratio 1.2 1.2 (1.0-2.8) Lipase 82 (23-300) U/L TSH 0.826 (0.47-4.68) uIU/mL Urine Color Yellow Urine Appearance Sl cloudy Urine pH 5.5 (4.5-8.0) Ur Specific [place] 1.025 (1.000-1.035) Urine Protein 2+ H (Negative) Urine Glucose (UA) Negative (Negative) g/dL Urine Ketones 1+ H (NEGATIVE) Urine Occult Blood 3+ H (Negative) Urine Nitrate Positive H (Negative) Urine Bilirubin 2+ H (NEGATIVE) Ur Bilirubin Confirm Positive H (Negative) Urine Urobilinogen 1.0 (0.2) E.U./dL Ur Leukocyte Esterase Negative (NEGATIVE) Urine RBC 0-1/hpf (0-5/HPF) Urine WBC 10-30/hpf H (0-5/HPF) Ur Squamous Epith Cells 0-1 /hpf (0-5/HPF) Urine Bacteria Moderate (10-30) H (None) Hyaline Casts 1-5/lpf (None) Ur Culture Indicated? Specimen cultured Vol Urine Centrifuged Low vol <10ml (spun) A MDM Narrative Medical decision making narrative: ED course: This is a 73-year-old female presents to the emergency department due to suspected viral gastroenteritis. She was not have any blood in his stool or fevers and low concern for any kind of bacterial gastroenteritis. Lab work was notable for a potassium of 2.7. This was Re supplemented with improvement of the potassium to 4.1. Other lab work showed no significant abnormalities. Patient was given a L of fluids. Patient was discharged with recommendations for supportive care. Patient requested a TSH which was unremarkable. CC: Diarrhea Complicating co-morbidities: None Data collected from: Previous notes Medical records reviewed: Patient was last seen about a year ago due to rectal bleeding post colonoscopy. History of total hysterectomy. History of stress incontinence. CT was ordered which showed no concerning findings patient was discharge. Differential considered, but not limited to: Hypokalemia, bacterial gastroenteritis, viral gastroenteritis Exam documented above, pertinent findings include: Some generalized tenderness to palpation Lab Test results independently reviewed as above. Pertinent findings: Lab work was remarkable for potassium of 2.7 initially which improved to a 4.1 after Re supplementation. Mild leukocytosis suspected be reactive. Imaging studies independently reviewed: None obtained Scores Used: None MIPS Elements: None Consultations: None Treatments: 20 mg IV potassium as well as 40 mg p.o. Re-evaluations: Patient felt better throughout the course of the encounter Discussion: Discussed plan with the patient was comfortable with the plan Diagnosis: Viral gastroenteritis Disposition: see below, along with detailed discharge instructions that have been reviewed with patient as well as indications for ED re-evaluation and additional outpatient follow up <Mariela Beltran, - Last Filed: 12/21/23 07:32> Lab Data Labs: Lab Results 12/18/23 12/18/23 12/18/23 Range/Units 16:12 16:42 20:00 WBC 13.1 H (4.5-11.0) X10^3/uL RBC 4.25 (4.0-5.2) X10^6/uL Hgb 14.8 (12.0-16.0) g/dL Hct 41.8 (36-46) % MCV 98.4 (80-100) fL MCH 34.8 H (26-34) PG MCHC 35.4 (30-36) % RDW 13.5 (11.6-14.8) % Plt Count 150 (150-400) X10^3/uL Neut % (Auto) 83.2 H (50-75) % Lymph % (Auto) 4.2 L (25-40) % Kerr % (Auto) 12.4 (3-14) % Eos % (Auto) 0.1 L (2-4) % Baso % (Auto) 0.1 (0-2) % Neut # (Auto) 31287 H (6394-4056) /uL Lymph # (Auto) 500 L (6382-7679) /uL Kerr # (Auto) 1600 H (0-900) /uL Eos # (Auto) 0 (0-450) /uL Baso # (Auto) 0 (0-100) /uL Sodium 133 L 133 L (137-145) mmol/L Potassium 2.7 L* 4.1 D (3.4-5.1) mmol/L Chloride 100 104 (98-107) mmol/L Carbon Dioxide 24 23 (22-32) mmol/L BUN 17 19 H (7-17) mg/dL Creatinine 0.83 0.84 (0.52-1.04) mg/dL Estimated GFR > 60 > 60 (>60) mL/min BUN/Creatinine Ratio 20.5 22.6 H (6-22) Glucose 121 H 119 H (80-110) mg/dL Calcium 8.2 L 8.2 L (8.4-10.2) mg/dL Total Bilirubin 1.1 1.0 (0.2-1.3) mg/dL AST 24 24 (14-36) IU/L ALT 14 15 (<35) IU/L Alkaline Phosphatase 62 63 (38-126) U/L Total Protein 6.9 7.1 (6.3-8.2) g/dL Albumin 3.8 3.9 (3.5-5.0) g/dL Globulin 3.1 3.2 (1.7-4.1) g/dL Albumin/Globulin Ratio 1.2 1.2 (1.0-2.8) Lipase 82 (23-300) U/L TSH 0.826 (0.47-4.68) uIU/mL Urine Color Yellow Urine Appearance Sl cloudy Urine pH 5.5 (4.5-8.0) Ur Specific [place] 1.025 (1.000-1.035) Urine Protein 2+ H (Negative) Urine Glucose (UA) Negative (Negative) g/dL Urine Ketones 1+ H (NEGATIVE) Urine Occult Blood 3+ H (Negative) Urine Nitrate Positive H (Negative) Urine Bilirubin 2+ H (NEGATIVE) Ur Bilirubin Confirm Positive H (Negative) Urine Urobilinogen 1.0 (0.2) E.U./dL Ur Leukocyte Esterase Negative (NEGATIVE) Urine RBC 0-1/hpf (0-5/HPF) Urine WBC 10-30/hpf H (0-5/HPF) Ur Squamous Epith Cells 0-1 /hpf (0-5/HPF) Urine Bacteria Moderate (10-30) H (None) Hyaline Casts 1-5/lpf (None) Ur Culture Indicated? Specimen cultured Vol Urine Centrifuged Low vol <10ml (spun) A ECG Data Attestation: I personally reviewed and interpreted this ECG as follows: Prior ECG tracings: not available for review Interpretation: Ruby 12/18/2023: EKG Sinus rhythm rate of 69 MI 130 QRS of 90 QTC 473. No U-waves, patient has nonspecific change. No priors for comparison. Discharge Plan Departure Patient Disposition: Home Clinical Impression: Viral gastroenteritis Instructions: DI for Viral Gastroenteritis -- Adult Activity Restrictions/Additional Instructions: Thank you for coming to the [facility] Emergency Department today. As we discussed suspect this is viral gastroenteritis. This is self-limiting and should improve on its own over the next couple of days. Please do your best to drink plenty of electrolyte containing fluids as well as a bland diet. This should improve over the next couple of days. We have Re supplemented your potassium to within normal limits. Please return to the emergency department if you develop any blood in her stool, fevers, significant abdominal pain, or any other concerning signs or symptoms. I hope you feel better soon. Please follow up with your primary care provider within a week if your symptoms continue. If you do not have a primary care provider please contact the [facility] Resource line at [phone]. They will ask some questions about your medical history and help you get set up with a provider in the community. Prescriptions: No Action Vit A/Vit B1/Vit B2/Vit C/Vi (#HEXAVITAMIN) Qty: 0 amoxicillin-pot clavulanate [Augmentin] 500-125 mg tablet 1 tab PO Q12H Qty: 14 0RF fluconazole [Diflucan] 150 mg tablet 150 mg PO ONCE Qty: 1 0RF Rx Instructions: as a single dose hydrocortisone acetate 25 mg suppository 25 mg MI BEDTIME PRN (Reason: rectal pain/bleeding) Qty: 12 0RF citalopram 10 mg Tablet 10 mg PO DAILY levothyroxine 88 mcg Tablet 88 mcg PO DAILY famciclovir 250 mg Tablet 2,000 mg PO 4-6XD PRN (Reason: Breakout) Patient Comments: Takes PRN, hasn't used in months losartan 25 mg Tablet 25 mg PO DAILY hydrochlorothiazide 25 mg Tablet 25 mg PO DAILY Referrals: Aramis Cunningham MD [Primary Care Provider] - Stand Alone Forms: Patient Portal/API ED Sign-out <Mariela Beltran DO - Last Filed: 12/21/23 07:32> Cosign ED Attending Gato Attestation: I was immediately available in the department for consultation.
[2023-12-18 18:00] VITALS: BP 120/60; PULSE 72; O2SAT 91
[2023-12-18 18:08] LABS: Thyroid Stimulating Hormone 0.826 uIU/mL (0.47-4.68)
[2023-12-18 18:30] VITALS: BP 101/59; PULSE 70; O2SAT 93
[2023-12-18 19:00] VITALS: BP 110/60; PULSE 73; RESP 18; O2SAT 93
[2023-12-18] MEDS: LOPERAMIDE 2 MG CAPSULE 4 MG PO (20:14)
[2023-12-18 20:35] LABS: Alanine Aminotransferase 15 IU/L (<35); Albumin 3.9 g/dL (3.5-5.0); Albumin Globulin Ratio 1.2 (1.0-2.8); Alkaline Phosphatase 63 U/L (38-126); Aspartate Aminotransferase 24 IU/L (14-36); BUN Creatinine Ratio 22.6 (6-22); Blood Urea Nitrogen 19 mg/dL (7-17); Calcium 8.2 mg/dL (8.4-10.2); Carbon Dioxide 23 mmol/L (22-32); Chloride 104 mmol/L (98-107); Estimated Glomerular Filt Rate > 60 mL/min (>60); Globulin 3.2 g/dL (1.7-4.1); Glucose 119 mg/dL (80-110); HEMOLYSIS 16 (0-50); Potassium 4.1 mmol/L (3.4-5.1); Sodium 133 mmol/L (137-145); Total Protein 7.1 g/dL (6.3-8.2)
[2023-12-18 21:03] VITALS: BP 123/63; PULSE 80; RESP 15; O2SAT 94
== END 2023-12-18 21:04 | disposition home or self-care (01) ==
PROVIDERS: Emergency Medicine; Emergency Provider Physician Assistant Medical; Family Provider Family Medicine; PCP Family Medicine
DX: A08.4 Viral intestinal infection, unspecified (principal); N39.0 Urinary tract infection, site not specified; R19.7 Diarrhea, unspecified; E87.6 Hypokalemia
CPT/HCPCS: 36415; 80053; 81001; 83690; 84443; 85025; 87077; 87086; 87186; 93005; 96365; 96366; 96375; 99284; J2405

== ENCOUNTER → 2024-05-20 13:17 | Outpatient (CLI) | payer MEDICARE, OTHER, SELFPAY ==
--- NOTE | 2024-05-20 13:20 | DI.RAD.S_ITS ---
PROCEDURE: XR CHEST 2V INDICATIONS: COPD TECHNIQUE: 2 views of the chest were acquired. COMPARISON: None. FINDINGS: Surgical changes and devices: None. Lungs and pleura: Emphysema. Nodular opacities in the lung bases. Mediastinum: Mediastinal contours are normal. Heart size is normal. Bones and chest wall: No suspicious bony abnormalities. Soft tissues appear unremarkable. IMPRESSION: Nodular opacities in the lung bases. Consider chest CT for complete evaluation in this patient with a history of smoking. Dictated by: Franki Chaudhary M.D. on 05/20/2024 at 14:06 Approved by: Franki Chaudhary M.D. on 05/20/2024 at 14:08
== END ==
PROVIDERS: Family Provider Family Medicine; PCP Family Medicine; Referring Provider Family Medicine; Visit Provider Family Medicine
DX: J44.1 Chronic obstructive pulmonary disease with (acute) exacerbation (principal)
CPT/HCPCS: 71046

== ENCOUNTER → 2024-05-20 14:32 | Outpatient (CLI) | payer MEDICARE, OTHER, SELFPAY ==
--- NOTE | 2024-05-20 14:33 | DI.MG.S_ITS ---
BILATERAL DIGITAL SCREENING MAMMOGRAM 3D/2D WITH CAD: 05/20/2024 CLINICAL: Routine screening. Family history of breast cancer. Comparison is made to exams dated: 03/11/2023 mammogram, 03/04/2022 mammogram, and 11/07/2018 mammogram - [facility]. There are scattered areas of fibroglandular density (category b / 25%-50% glandular tissue). Current study was also evaluated with a Computer Aided Detection (CAD) system. No significant masses, calcifications, or other findings are seen in either breast. There has been no significant interval change. IMPRESSION: NEGATIVE There is no mammographic evidence of malignancy. A 1 year screening mammogram is recommended. Based on the Tyrer Cuzick model (a risk assessment model) the patient's lifetime risk is 8.2% and her 10 year risk is 6.7%. According to the ACR, ACS, and NCCN guidelines, an annual breast MRI exam along with mammogram is recommended if the patient's lifetime risk is 20% or greater. This exam was interpreted at Station ID: [id number]. NOTE: For mammograms, a report in lay terms will be sent to the patient. Approximately 15% of breast malignancies will not be visualized mammographically. In the management of a palpable breast mass, a negative mammogram must not discourage biopsy of a clinically suspicious lesion. Electronically Signed By: Christopher gordon/gregoria:05/20/2024 18:34:20 letter sent: Normal Exam ACR BI-RADS Category 1: Negative
== END ==
PROVIDERS: Family Provider Family Medicine; PCP Family Medicine; Referring Provider Family Medicine; Visit Provider Family Medicine
DX: Z12.31 Encounter for screening mammogram for malignant neoplasm of breast (principal); Z80.3 Family history of malignant neoplasm of breast; J44.1 Chronic obstructive pulmonary disease with (acute) exacerbation
CPT/HCPCS: 71046; 77063; 77067

== ENCOUNTER → 2024-05-25 08:22 | Outpatient (CLI) | payer MEDICARE, OTHER, SELFPAY ==
--- NOTE | 2024-05-25 08:42 | DI.CT.S_ITS ---
PROCEDURE: CT CHEST W CON INDICATIONS: Chronic obstructive pulmonary disease with (acute) exacerbat TECHNIQUE: After the administration of intravenous contrast, 5 mm thick sections acquired from the pulmonary apices to the posterior costophrenic angles. 1 mm axial lung, 5 mm thick coronal and sagittal reformats and 7 mm axial MIP were acquired. For radiation dose reduction, the following was used: automated exposure control, adjustment of mA and/or kV according to patient size. COMPARISON: None. FINDINGS: Image quality: Diagnostic. Lower Neck: No enlarged lymph nodes. Thyroid: No thyroid nodules which require sonographic follow up, per consensus guidelines. Axillae: No enlarged lymph nodes. Chest Wall: Unremarkable. Bones: Unremarkable. Lungs and Pleura: No pneumothorax or pleural effusions. There is a solid pulmonary nodule in the right upper lobe measuring 5 x 6 mm (8/105, MIP image 53). Additional scattered pulmonary micro nodules. Heart: Heart size is normal. No pericardial effusion. Thoracic Vessels: The aorta and pulmonary arteries demonstrate normal size. Mediastinum and Am[place]: No enlarged lymph nodes. Esophagus: No wall thickening. No hiatal hernia. Upper Abdomen: Visualized upper abdomen solid organs and bowel loops appear normal. IMPRESSION: Right upper lobe 6 mm solid pulmonary nodule and additional scattered bilateral micro nodules. Recommend follow-up CT chest in 6-12 months. Approved by: Constance Shea M.D.,Ph.D. on 05/26/2024 at 1:57
== END ==
LOC: CT 08:23
PROVIDERS: Family Provider Family Medicine; PCP Family Medicine; Referring Provider Family Medicine; Visit Provider Family Medicine
DX: J44.1 Chronic obstructive pulmonary disease with (acute) exacerbation (principal); R91.8 Other nonspecific abnormal finding of lung field
CPT/HCPCS: 71260; Q9967

== ENCOUNTER 2024-10-23 10:39 | Emergency (ER) | payer MEDICARE, OTHER, SELFPAY ==
[2024-10-23] VITALS (12 sets, daily range): BP systolic 126–146; BP diastolic 60–84; PULSE 57–85; RESP 16–30; TEMP 36.4; O2SAT 91–98; BMI 29.2
--- NOTE | 2024-10-23 10:44 | DI.RAD.S_ITS ---
PROCEDURE: XR CHEST 1V INDICATIONS: chest pain TECHNIQUE: One view of the chest was acquired. COMPARISON: [facility], CR, XR CHEST 2V, 05/20/2024, 13:22. FINDINGS: Surgical changes and devices: None. Lungs and pleura: Lungs are clear. No pleural effusions or pneumothorax. Mediastinum: Mediastinal contours appear normal. Heart size is normal. Bones and chest wall: No suspicious bony lesions. Overlying soft tissues appear unremarkable. IMPRESSION: No acute cardiopulmonary abnormality is seen. Approved by: Vignesh Malcolm M.D. on 10/23/2024 at 11:33
--- NOTE | 2024-10-23 10:50 | EKG_ITS ---
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
[2024-10-23] MEDS: ASPIRIN 81 MG CHEW TAB 324 MG PO (11:10)
[2024-10-23 11:12] LABS: Prothrombin Time 11.4 SECONDS (9.4-12.5)
[2024-10-23 11:15] LABS: Alanine Aminotransferase 24 IU/L (<35); Albumin 4.5 g/dL (3.5-5.0); Albumin Globulin Ratio 1.3 (1.0-2.8); Alkaline Phosphatase 64 U/L (38-126); Aspartate Aminotransferase 36 IU/L (14-36); Bilirubin Total 0.8 mg/dL (0.2-1.3); Blood Urea Nitrogen 21 mg/dL (7-17); Calcium 9.5 mg/dL (8.4-10.2); Carbon Dioxide 28 mmol/L (22-32); Chloride 103 mmol/L (98-107); Creatine Kinase 40 U/L (30-135); Estimated Glomerular Filt Rate > 60 mL/min (>60); Globulin 3.4 g/dL (1.7-4.1); Glucose 85 mg/dL (80-110); HEMOLYSIS 49 (0-50); Lipase 380 U/L (23-300); PTT Partial Thromboplastin Tim 30 SECONDS (25.1-36.5); Potassium 4.1 mmol/L (3.4-5.1); Sodium 139 mmol/L (137-145); Total Protein 7.9 g/dL (6.3-8.2)
[2024-10-23 11:19] LABS: Add Manual Diff / Slide Review NO; Basophils Absolute Auto 100 /uL (0-100); Basophils Percent Auto 0.7 % (0-2); Eosinophils Absolute Auto 800 /uL (0-450); Eosinophils Percent Auto 8.9 % (2-4); Hematocrit 47.9 % (36-46); Hemoglobin 16.5 g/dL (12.0-16.0); Lymphocytes Absolute Auto 2000 /uL (1100-4500); Lymphocytes Percent Auto 23.5 % (25-40); Mean Corpuscular HGB Conc 34.5 % (30-36); Mean Corpuscular Volume 101.3 fL (80-100); Monocytes Absolute Auto 700 /uL (0-900); Monocytes Percent Auto 8.1 % (3-14); Neutrophils Absolute Auto 4900 /uL (1500-7000); Neutrophils Percent Auto 58.8 % (50-75); Platelet Count 168 X10^3/uL (150-400); Red Blood Cell Count 4.73 X10^6/uL (4.0-5.2); Red Cell Distribution Width 13.2 % (11.6-14.8); White Blood Cell Count 8.4 X10^3/uL (4.5-11.0)
[2024-10-23 11:27] LABS: NT-proBNP (BNP-Adult 18+) 76 pg/mL (<125); Troponin I < 0.012 ng/mL (0.01-0.034)
--- NOTE | 2024-10-23 11:33 | ED.CHESTPAIN ---
HPI - Chest Pain General Chief Complaint: Chest Pain Stated Complaint: Severe chest pain Time Seen by Provider: 10/23/24 11:27 Source: patient and family Mode of arrival: Ambulatory History of Present Illness HPI narrative: 74-year-old female history of hypertension presents with midsternal chest pain that was described as pressure and sharp radiating to the right side this morning to 2 hours.. Ago prior to her arrival where she was doing laundry but nothing strenuous. Nonsmoker no history of diabetes CAD or discharge lipidemia. She had a remote stress test in the past many years ago that patient states not show any pathology at that time. She is still feeling pressure right now in the midsternal region 01/27 at this time. Other than what is stated 14 point review of system is negative Related Data Home Medications Medication Instructions Recorded Confirmed Vit A/Vit B1/Vit B2/Vit C/Vi ##0 11/17/11 04/07/22 (#HEXAVITAMIN) citalopram 10 mg tablet 10 mg PO DAILY 01/11/19 09/06/22 famciclovir 250 mg tablet 2,000 mg PO 4-6XD PRN Breakout 01/11/19 09/06/22 hydrochlorothiazide 25 mg tablet 25 mg PO DAILY 01/11/19 09/06/22 levothyroxine 88 mcg tablet 88 mcg PO DAILY 01/11/19 09/06/22 losartan 25 mg tablet 25 mg PO DAILY 01/11/19 09/06/22 Previous Rx's Medication Instructions Recorded hydrocortisone acetate 25 mg 25 mg NV BEDTIME PRN rectal 09/08/22 rectal suppository pain/bleeding #12 ea amoxicillin 500 mg-potassium 1 tab PO Q12H #14 tabs 09/09/22 clavulanate 125 mg tablet (Augmentin) fluconazole 150 mg tablet 150 mg PO ONCE #1 tab 09/09/22 (Diflucan) Allergies Allergy/AdvReac Type Severity Reaction Status Date / Time latex Allergy Severe Rash Verified 10/23/24 11:02 Sulfa (Sulfonamide Allergy Unknown Doesn't Verified 10/23/24 11:02 Antibiotics) remember hydromorphone AdvReac Severe N&V Verified 10/23/24 11:02 meperidine AdvReac Severe N&V Verified 10/23/24 11:02 Review of Systems Review of Systems ROS Unobtainable: All systems reviewed & are unremarkable except as noted in HPI and below Patient History Medical History Cough Surgical History Status post appendectomy Status post colonoscopy Social History household members: spouse Smoking Status: Current every day smoker Smoking Status: Current every day smoker alcohol intake frequency: holidays/special occasions only Exam Narrative Exam Narrative: GENERAL: [74] year old patient appears stated age. Well-developed patient, in mild distress. HEAD: Atraumatic. Normocephalic. EYES: Pupils equal round and reactive. Extraocular motions intact. No scleral icterus. No injection or drainage. ENT: Nose without bleeding, purulent drainage. Throat without erythema, tonsillar hypertrophy or exudate. Airway patent. NECK: Trachea midline. Non tender CARDIOVASCULAR: Regular rate and rhythm without murmurs, gallops, or rubs. RESPIRATORY: Clear to auscultation. Breath sounds equal bilaterally. No wheezes, rales, or rhonchi. GASTROINTESTINAL: Abdomen soft, non-tender, nondistended. EXTREMITIES: No edema or joint tenderness. BACK: Nontender without deformity or crepitance. No flank tenderness. NEURO: AOx3. SKIN: No rash or erythema of visible areas Initial Vital Signs Initial Vital Signs: Vital Signs Temperature 97.6 F 10/23/24 10:52 Pulse Rate 63 10/23/24 10:52 Respiratory Rate 16 10/23/24 10:52 Blood Pressure 146/80 H 10/23/24 10:52 Pulse Oximetry 94 10/23/24 10:52 Oxygen Delivery Method Room Air 10/23/24 10:52 Course Orders Ordered: ED Orders 10/23/24 10:44 XR chest 1V Stat EKG-12 Lead Stat 10/23/24 10:51 Complete Blood Count AUTO DIFF Stat Comprehensive Metabolic Panel Stat Lipase Stat Magnesium Stat NT-proBNP (BNP-Adult 18+) Stat PTT Partial Thromboplastin Ag Stat Prothrombin Time INR Stat Troponin & CK Cardiac Panel Stat 10/23/24 11:42 EKG-12 Lead Stat 10/23/24 13:15 Trop I [Troponin I] Stat Nitroglycerin (Nitroglycerin 0.4 Mg Sl Tab) 0.4 mg SL [id number] PRN PRN Reason: chset pain Last Admin: 10/23/24 12:57 Dose: 0.4 mg Documented By: JR Discontinued Medications Aspirin (Aspirin 81 Mg Chew Tab) 324 mg PO NOW ONE Stop: 10/23/24 10:45 Last Admin: 10/23/24 11:10 Dose: 324 mg Documented By: JEET Vital Signs Vital signs: Vital Signs - 8 hr 10/23/24 10:52 10/23/24 11:21 10/23/24 11:30 Temperature 97.6 F Pulse Rate 63 60 61 Respiratory Rate 16 16 28 H Blood Pressure 146/80 H Pulse Oximetry 94 95 95 Oxygen Delivery Method Room Air 10/23/24 11:30 10/23/24 12:00 10/23/24 12:00 Temperature Pulse Rate 61 Respiratory Rate 28 H Blood Pressure 135/67 138/63 Pulse Oximetry 94 Oxygen Delivery Method Room Air 10/23/24 12:30 10/23/24 12:57 10/23/24 13:00 Temperature Pulse Rate 65 85 64 Respiratory Rate 30 H 27 H Blood Pressure 134/78 138/63 Pulse Oximetry 94 93 Oxygen Delivery Method Room Air 10/23/24 13:30 Temperature Pulse Rate 62 Respiratory Rate 22 Blood Pressure 133/84 Pulse Oximetry 94 Oxygen Delivery Method Room Air MDM - Chest Pain Lab Data 10/23/24 10:51 10/23/24 10:51 Labs: Lab Results 10/23/24 Range/Units 10:51 WBC 8.4 (4.5-11.0) X10^3/uL RBC 4.73 (4.0-5.2) X10^6/uL Hgb 16.5 H (12.0-16.0) g/dL Hct 47.9 H (36-46) % MCV 101.3 H (80-100) fL MCH 35.0 H (26-34) PG MCHC 34.5 (30-36) % RDW 13.2 (11.6-14.8) % Plt Count 168 (150-400) X10^3/uL Neut % (Auto) 58.8 (50-75) % Lymph % (Auto) 23.5 L (25-40) % [place] % (Auto) 8.1 (3-14) % Eos % (Auto) 8.9 H (2-4) % Baso % (Auto) 0.7 (0-2) % Neut # (Auto) 4900 (8920-0362) /uL Lymph # (Auto) 2000 (0423-3535) /uL [place] # (Auto) 700 (0-900) /uL Eos # (Auto) 800 H (0-450) /uL Baso # (Auto) 100 (0-100) /uL PT 11.4 (9.4-12.5) SECONDS INR 1.0 (0.9-1.3) APTT 30 (25.1-36.5) SECONDS Sodium 139 (137-145) mmol/L Potassium 4.1 (3.4-5.1) mmol/L Chloride 103 (98-107) mmol/L Carbon Dioxide 28 (22-32) mmol/L BUN 21 H (7-17) mg/dL Creatinine 0.84 (0.52-1.04) mg/dL Estimated GFR > 60 (>60) mL/min BUN/Creatinine Ratio 25.0 H (6-22) Glucose 85 (80-110) mg/dL Calcium 9.5 (8.4-10.2) mg/dL Magnesium 2.0 (1.6-2.3) mg/dL Total Bilirubin 0.8 (0.2-1.3) mg/dL AST 36 (14-36) IU/L ALT 24 (<35) IU/L Alkaline Phosphatase 64 (38-126) U/L Total Creatine Kinase 40 (30-135) U/L Troponin I < 0.012 (0.01-0.034) ng/mL NT-Pro-B Natriuret Pep 76 (<125) pg/mL Total Protein 7.9 (6.3-8.2) g/dL Albumin 4.5 (3.5-5.0) g/dL Globulin 3.4 (1.7-4.1) g/dL Albumin/Globulin Ratio 1.3 (1.0-2.8) Lipase 380 H (23-300) U/L Imaging Data Chest x-ray: Radiologist's Impression: [address] [id number] XRay Report Signed Patient: Sintia Doyle MR#: [id number] : 1950 Acct:[id number] Age/Sex: 74 / F Date of Service: 10/23/24 Loc: ED Accession Number: [id number] Procedure: XR chest 1V Ordering Provider: Bob Blanca D.O. PROCEDURE: XR CHEST 1V INDICATIONS: chest pain TECHNIQUE: One view of the chest was acquired. COMPARISON: [facility], CR, XR CHEST 2V, 05/20/2024, 13:22. FINDINGS: Surgical changes and devices: None. Lungs and pleura: Lungs are clear. No pleural effusions or pneumothorax. Mediastinum: Mediastinal contours appear normal. Heart size is normal. Bones and chest wall: No suspicious bony lesions. Overlying soft tissues appear unremarkable. IMPRESSION: No acute cardiopulmonary abnormality is seen. ECG Data Attestation: I personally reviewed and interpreted this ECG as follows: Interpretation: HR 67 NV 142 QRS [address]-t wave change NO previous ekg to compare against MDM Narrative Medical decision making narrative: All lab work EKG chest x-ray all reviewed patient was given aspirin 324 mg here and 1 nitroglycerin which completely resolved the patient's pain. Patient has a heart score of 5. Differential diagnosis STEMI NSTEMI atypical chest pain GERD anxiety unstable angina. Patient will follow up PCP on Friday and return with new or worsening symptoms. Discharge Plan Departure Patient Disposition: Home Clinical Impression: Chest pain Qualifiers: Chest pain type: chest pain on breathing Qualified Code(s): R07.1 - Chest pain on breathing Instructions: DI for Chest Pain Activity Restrictions/Additional Instructions: Return with new or worsening symptoms follow up with PCP on Friday Prescriptions: No Action Vit A/Vit B1/Vit B2/Vit C/Vi (#HEXAVITAMIN) Qty: 0 amoxicillin-pot clavulanate [Augmentin] 500-125 mg tablet 1 tab PO Q12H Qty: 14 0RF fluconazole [Diflucan] 150 mg tablet 150 mg PO ONCE Qty: 1 0RF Rx Instructions: as a single dose hydrocortisone acetate 25 mg suppository 25 mg NV BEDTIME PRN (Reason: rectal pain/bleeding) Qty: 12 0RF citalopram 10 mg Tablet 10 mg PO DAILY levothyroxine 88 mcg Tablet 88 mcg PO DAILY famciclovir 250 mg Tablet 2,000 mg PO 4-6XD PRN (Reason: Breakout) Patient Comments: Takes PRN, hasn't used in months losartan 25 mg Tablet 25 mg PO DAILY hydrochlorothiazide 25 mg Tablet 25 mg PO DAILY Referrals: Aramis Cunningham MD [Primary Care Provider] - Stand Alone Forms: Patient Portal/API/Survey
[2024-10-23] MEDS: NITROGLYCERIN 0.4 MG SL TAB SL (12:57)
[2024-10-23 14:04] LABS: Troponin I < 0.012 ng/mL (0.01-0.034)
== END 2024-10-23 14:51 | disposition home or self-care (01) ==
PROVIDERS: Emergency Provider Family Medicine; Family Provider Family Medicine; PCP Family Medicine
DX: R07.1 Chest pain on breathing (principal); I10 Essential (primary) hypertension; F17.200 Nicotine dependence, unspecified, uncomplicated
CPT/HCPCS: 36415; 71045; 80053; 82550; 83690; 83735; 83880; 84484; 85025; 85610; 85730; 93005; 99284

== ENCOUNTER → 2024-12-02 12:18 | Outpatient (CLI) | payer MEDICARE, OTHER, SELFPAY ==
--- NOTE | 2024-12-02 12:20 | DI.CT.S_ITS ---
PROCEDURE: CT CHEST WO CON INDICATIONS: LUNG NODULE TECHNIQUE: Noncontrast 2.0-2.5 mm thick sections acquired from the pulmonary apices to the posterior costophrenic angles. 7 mm thick axial MIP and 5 mm coronal and sagittal reformats were then acquired. For radiation dose reduction, the following was used: automated exposure control, adjustment of mA and/or kV according to patient size. COMPARISON: [facility], CT, CT CHEST W CON, 05/25/2024, 8:30. FINDINGS: Image quality: Diagnostic. Lower Neck: No enlarged lymph nodes. Thyroid: No thyroid nodules which require sonographic follow up, per consensus guidelines. Axillae: No enlarged lymph nodes. Chest Wall: Unremarkable. Bones: Unremarkable. Lungs and Pleura: No pneumothorax or pleural effusions. No consolidation or new suspicious nodules. The previously identified solid right upper lobe pulmonary nodule again measures 6 mm and is best seen centered on series 3, image 111. Also within the lateral right upper lobe there is a subsolid nodular radiodensity measuring 8-9 mm in diameter seen on series 3, image 104. This was also previously present 05/25/24 on series 8, image 101, and has not changed. Heart: Heart size is normal. No pericardial effusion. Thoracic Vessels: The aorta and pulmonary arteries demonstrate normal size. Mediastinum and [place]: No enlarged lymph nodes. Esophagus: No wall thickening. No hiatal hernia. Upper Abdomen: Visualized upper abdomen solid organs and bowel loops appear normal. IMPRESSION: Stable 6 mm solid pulmonary nodule previously reported from CT 05/25/24. There also is a subsolid 8-9 mm ground-glass nodular radiodensity nearby within the lateral right upper lobe previously present but not reported in May of last year. Follow-up of each of these abnormalities is recommended in 1 year to confirm absence of change attendant time. Fleischner Society criteria for SOLID lung nodule followup. Nodule size (mm)Low-risk patientHigh-risk patient<6 (single or multiple)No routine followup.Optional CT at 12 months. 6-8 (single or multiple)CT at 6-12 months, then optional CT at 18-24 mo.CT at 6-12 months, then CT at 18-24 months. >8 (single)CT at 3 months, PET-CT, or biopsy. Same as for low-risk pts. >8 (multiple)CT at 3-6 months, then optional CT at 18-24 mo.CT at 3-6 months, then CT at 18-24 months. Fleischner Society criteria for SUB-SOLID lung nodule followup. Solitary pure ground-glass nodules<6 mm (ground glass or part solid)No followup needed. 6 mm or larger (ground glass)CT at 6-12 months to confirm persistence, then CT every 2 years until 5 years.6 mm or larger (part solid)CT at 3-6 months to confirm persistence, then annual CT until 5 years if unchanged and solid component remains <6 mm. Multiple sub-solid nodules<6 mmCT at 3-6 months, then CT consider at 2 & 4 years for high risk patients. [address] at 3-6 months. Subsequent management based on most suspicious lesions. Recommendations do not apply to lung cancer screening, patients with immunosuppression, or patients with known primary cancer. Dictated by: Brian Kim M.D. on 12/02/2024 at 12:49 Approved by: Brian Kim M.D. on 12/02/2024 at 12:58
== END ==
PROVIDERS: Family Provider Family Medicine; PCP Family Medicine; Referring Provider Family Medicine; Visit Provider Family Medicine
DX: R91.1 Solitary pulmonary nodule (principal)
CPT/HCPCS: 71250

== ENCOUNTER → 2025-05-02 15:39 | Outpatient (CLI) | payer MEDICARE, OTHER, SELFPAY ==
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
== END ==
PROVIDERS: Family Provider Family Medicine; PCP Family Medicine; Referring Provider Nurse Practitioner Family; Visit Provider Nurse Practitioner Family
DX: M54.6 Pain in thoracic spine (principal); V89.2XXA Person injured in unspecified motor-vehicle accident, traffic, initial encounter
CPT/HCPCS: 72072

== ENCOUNTER → 2025-05-14 09:21 | Outpatient (CLI) | payer MEDICARE, OTHER, SELFPAY ==
--- NOTE | 2025-05-14 09:23 | DI.MRI.S_ITS ---
PROCEDURE: MR HEAD/BRAIN WO CON INDICATIONS: Transient nueurological symptoms; Dizziness TECHNIQUE: Non-contrast axial T1 spin echo, axial T2 fast spin echo, sagittal and axial FLAIR, coronal T2 fast spin echo, axial gradient echo, axial diffusion and ADC through the brain. COMPARISON: None. FINDINGS: Image quality: Excellent. CSF spaces: Ventricles appear symmetric in size and shape. Basal cisterns are patent. No extra-axial fluid collections. Brain: No intracranial bleeds or mass effects. There is cerebral volume loss for age. There are periventricular and deep white matter chronic small vessel ischemic changes. Brainstem appears normal. Diffusion-weighted images show no acute infarct. No chronic ischemic insults. Normal intravascular flow voids are present. Skull and face: Calvarial bone marrow is normal in signal. Orbits are normal. Sinuses: Mild diffuse paranasal sinus mucosal thickening. The mastoids are clear. IMPRESSION: No acute intracranial abnormalities. Mild age-related global volume loss and chronic microvascular ischemic change. Approved by: Ranjan Mckeon M.D. on 05/15/2025 at 14:36
== END ==
LOC: MRI 09:22
PROVIDERS: Family Provider Family Medicine; PCP Family Medicine; Referring Provider Family Medicine; Visit Provider Family Medicine
DX: R42 Dizziness and giddiness (principal); R29.818 Other symptoms and signs involving the nervous system
CPT/HCPCS: 70551

== ENCOUNTER → 2025-05-25 14:05 | Outpatient (CLI) | payer MEDICARE, OTHER, SELFPAY ==
--- NOTE | 2025-05-25 14:09 | DI.MG.S_ITS ---
MM screening mammo BI: 05/25/2025. BI-RADS: 1 CLINICAL: 75-year old female for bilateral screening mammogram. Tyrer-Cuzick lifetime risk of 7.5%. Current reported family history of breast cancer: sister. PRIOR EXAMS 05/20/2024, 03/11/2023, 03/04/2022, 11/07/2018. MAMMOGRAPHY TECHNIQUE: 2D and 3D (tomosynthesis) digital mammographic views obtained, with additional images as needed for full coverage. Current study was also evaluated with a Computer Aided Detection (CAD) system. DENSITY B. There are scattered areas of fibroglandular density. MAMMOGRAPHY FINDINGS Bilateral: No suspicious mass, asymmetry, microcalcification, or other abnormality seen. IMPRESSION: * No evidence of malignancy. RECOMMENDATIONS Bilateral * Annual screening mammography. OVERALL ASSESSMENT CATEGORY BI-RADS-1: Negative. The [employer] recommends annual screening mammography beginning at age 40 for women with average risk of breast cancer. ELECTRONICALLY SIGNED: Jaz Wayne M.D. on 05/25/2025 at 05:06:00 PM PT Interpreting Station ID: [id number]
== END ==
LOC: MAMMO 14:07
PROVIDERS: Family Provider Family Medicine; PCP Family Medicine; Referring Provider Family Medicine; Visit Provider Family Medicine
DX: Z12.31 Encounter for screening mammogram for malignant neoplasm of breast (principal); Z80.3 Family history of malignant neoplasm of breast
CPT/HCPCS: 77063; 77067

== ENCOUNTER 2025-06-13 06:34 | Inpatient (IN) | payer MEDICARE, OTHER, SELFPAY ==
[2025-06-13] VITALS (15 sets, daily range): BP systolic 103–173; BP diastolic 58–81; PULSE 81–99; RESP 16–23; TEMP 36.4–36.6; O2SAT 85–95; BMI 27.8
--- NOTE | 2025-06-13 06:42 | DI.RAD.S_ITS ---
PROCEDURE: XR CHEST 1V INDICATIONS: dyspnea TECHNIQUE: One view of the chest was acquired. COMPARISON: [facility], CR, XR CHEST 1V, 10/23/2024, 11:27. FINDINGS: Surgical changes and devices: None. Lungs and pleura: Lungs are clear. No pleural effusions or pneumothorax. Mediastinum: Mediastinal contours appear normal. Heart size is normal. Bones and chest wall: No suspicious bony lesions. Overlying soft tissues appear unremarkable. IMPRESSION: No acute cardiopulmonary abnormality is seen. Approved by: Hernan Churchill M.D. on 06/13/2025 at 7:51
[2025-06-13] MEDS: ALBUTEROL/IPRATROPIUM 3 ML AMPUL INH ×2 (06:51→11:33)
[2025-06-13 06:53] LABS: Add Manual Diff / Slide Review NO; Hematocrit 46.1 % (36-46); Hemoglobin 16.1 g/dL (12.0-16.0); Lymphocytes Absolute Auto 2100 /uL (1100-4500); Mean Corpuscular HGB Conc 34.9 % (30-36); Mean Corpuscular Hemoglobin 35.0 PG (26-34); Mean Corpuscular Volume 100.4 fL (80-100); Platelet Count 153 X10^3/uL (150-400)
[2025-06-13 07:00] LABS: Alanine Aminotransferase 18 IU/L (<35); Albumin 4.3 g/dL (3.5-5.0); Albumin Globulin Ratio 1.3 (1.0-2.8); Alkaline Phosphatase 67 U/L (38-126); Blood Urea Nitrogen 15 mg/dL (7-17); Calcium 8.9 mg/dL (8.4-10.2); Carbon Dioxide 24 mmol/L (22-32); Chloride 107 mmol/L (98-107); Estimated Glomerular Filt Rate > 60 mL/min (>60); Globulin 3.2 g/dL (1.7-4.1); Glucose 112 mg/dL (70-99); HEMOLYSIS 43 (0-50); Lipase 156 U/L (23-300); Magnesium 3.5 mg/dL (1.6-2.3); Potassium 3.2 mmol/L (3.4-5.1); Sodium 139 mmol/L (137-145); Total Protein 7.5 g/dL (6.3-8.2)
--- NOTE | 2025-06-13 07:09 | EKG_ITS ---
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
--- NOTE | 2025-06-13 07:09 | ED.SOB ---
HPI - SOB/Dyspnea General Chief Complaint: Shortness of Breath/Dyspnea Stated Complaint: Diff breathing Time Seen by Provider: 06/13/25 06:38 Source: patient and EMS Mode of arrival: EMS Limitations: no limitations History of Present Illness HPI Narrative: Patient is a 75-year-old female history of asthma, hypertension, presenting today with increasing shortness of breath. She reports that she has not been taking her Flovent only taking her albuterol without a spacer. Over last 2 weeks she has had increasing shortness of breath. Last night she had significantly worse trouble breathing. Hypoxic for EMS. EMS gave her Decadron magnesium and DuoNeb treatments. She has 85% here on room air. She denies fever chills or cough. She is not currently on prednisone. Denies any chest pain. No prior history of blood clots. Related Data Home Medications ?Medication ?Instructions ?Recorded ?Confirmed Vit A/Vit B1/Vit B2/Vit C/Vi ##0 11/17/11 05/02/25 (#HEXAVITAMIN) citalopram 10 mg tablet 10 mg PO DAILY 01/11/19 05/02/25 famciclovir 250 mg tablet 2,000 mg PO 4-6XD PRN Breakout 01/11/19 05/02/25 hydrochlorothiazide 25 mg tablet 25 mg PO DAILY 01/11/19 05/02/25 levothyroxine 88 mcg tablet 88 mcg PO DAILY 01/11/19 05/02/25 losartan 25 mg tablet 25 mg PO DAILY 01/11/19 05/02/25 fluticasone furoate 50 1 ea inhalation 05/02/25 05/02/25 mcg-vilanterol 25 mcg/dose inhalation powder (Breo Ellipta) trazodone 50 mg tablet 25 - 50 mg PO ONCE PM 05/02/25 05/02/25 Allergies Allergy/AdvReac Type Severity Reaction Status Date / Time latex Allergy Severe Rash Verified 06/13/25 06:50 Sulfa (Sulfonamide Allergy Unknown Doesn't Verified 06/13/25 06:50 Antibiotics) remember hydromorphone AdvReac Severe N&V Verified 06/13/25 06:50 meperidine AdvReac Severe N&V Verified 06/13/25 06:50 Patient History Medical History Cough Surgical History Status post appendectomy Status post colonoscopy Social History household members: spouse Smoking Status: Former smoker Smoking Status: Former smoker alcohol intake frequency: holidays/special occasions only Exam Initial Vital Signs Initial Vital Signs: Vital Signs Temperature 97.7 F 06/13/25 06:50 Pulse Rate 82 06/13/25 06:50 Respiratory Rate 23 06/13/25 06:50 Blood Pressure 152/81 H 06/13/25 06:50 Pulse Oximetry 85 L 06/13/25 06:50 Oxygen Delivery Method Room Air 06/13/25 06:50 GENERAL: Alert pleasant 75-year-old female and in no acute distress. HEENT: Head atraumatic,EOMI, pupils reactive, face symmetric, moist mucous membranes CARDIOVASCULAR: Regular rate and rhythm without murmurs, rubs or gallops. RESPIRATORY: Wheezing throughout, speaking more clearly after multiple breathing treatment ABDOMEN: Soft, nontender. Normoactive bowel sounds all 4 quadrants. No guarding or rebound. EXTREMITIES: Normal range of motion, no clubbing or edema. Neurovascularly intact NEUROLOGICAL: Alert and oriented x4.Normal gait and speech. Cranial nerves II through XII grossly intact. SKIN: Warm, dry, no laceration, no petechiae, no rashes or lesions. Course Orders Ordered: ED Orders 06/13/25 06:41 Complete Blood Count AUTO DIFF Stat Comprehensive Metabolic Panel Stat D Dimer Stat Lipase Stat Magnesium Stat NT-proBNP (BNP-Adult 18+) Stat Troponin I Stat 06/13/25 06:42 XR chest 1V Stat EKG-12 Lead Stat Discontinued Medications Albuterol (Albuterol 2.5 Mg/3 Ml Neb (Adult)) 2.5 mg INH NOW ONE Stop: 06/13/25 07:41 Last Admin: 06/13/25 07:42 Dose: 2.5 mg Documented By: SHA Albuterol/Ipratropium (Albuterol/Ipratropium 3 Ml Ampul) 3 ml INH NOW ONE Stop: 06/13/25 06:49 Last Admin: 06/13/25 06:51 Dose: 3 ml Documented By: SHA Methylprednisolone (Methylprednisolone Succ 125 Mg/2 Ml Vial) 125 mg IV NOW ONE Stop: 06/13/25 06:48 Last Admin: 06/13/25 07:23 Dose: Not Given Documented By: OSMANY Vital Signs Vital signs: Vital Signs - 8 hr 06/13/25 06:50 06/13/25 06:51 06/13/25 07:43 Temperature 97.7 F Pulse Rate 82 81 87 Respiratory Rate 23 20 20 Blood Pressure 152/81 H Pulse Oximetry 85 L 90 L 93 Oxygen Delivery Method Room Air Nasal Cannula Nasal Cannula Oxygen Flow Rate 2 2 Fraction of Inspired Oxygen 28 28 MDM - SOB/Dyspnea Lab Data 06/13/25 06:41 06/13/25 06:41 Labs: Lab Results 06/13/25 Range/Units 06:41 WBC 7.7 (4.5-11.0) X10^3/uL RBC 4.60 (4.0-5.2) X10^6/uL Hgb 16.1 H (12.0-16.0) g/dL Hct 46.1 H (36-46) % MCV 100.4 H (80-100) fL MCH 35.0 H (26-34) PG MCHC 34.9 (30-36) % RDW 13.4 (11.6-14.8) % Plt Count 153 (150-400) X10^3/uL Neut % (Auto) 49.4 L (50-75) % Lymph % (Auto) 27.6 (25-40) % [place] % (Auto) 8.9 (3-14) % Eos % (Auto) 13.2 H (2-4) % Baso % (Auto) 0.9 (0-2) % Neut # (Auto) 3800 (4563-8459) /uL Lymph # (Auto) 2100 (3360-0160) /uL [place] # (Auto) 700 (0-900) /uL Eos # (Auto) 1000 H (0-450) /uL Baso # (Auto) 100 (0-100) /uL D-Dimer 405 (<500) ng/ml Sodium 139 (137-145) mmol/L Potassium 3.2 L (3.4-5.1) mmol/L Chloride 107 (98-107) mmol/L Carbon Dioxide 24 (22-32) mmol/L BUN 15 (7-17) mg/dL Creatinine 0.77 (0.52-1.04) mg/dL Estimated GFR > 60 (>60) mL/min BUN/Creatinine Ratio 19.5 (6-22) Glucose 112 H (70-99) mg/dL Calcium 8.9 (8.4-10.2) mg/dL Magnesium 3.5 H (1.6-2.3) mg/dL Total Bilirubin 0.7 (0.2-1.3) mg/dL AST 31 (14-36) IU/L ALT 18 (<35) IU/L Alkaline Phosphatase 67 (38-126) U/L Troponin I < 0.012 (0.01-0.034) ng/mL NT-Pro-B Natriuret Pep 40 (<125) pg/mL Total Protein 7.5 (6.3-8.2) g/dL Albumin 4.3 (3.5-5.0) g/dL Globulin 3.2 (1.7-4.1) g/dL Albumin/Globulin Ratio 1.3 (1.0-2.8) Lipase 156 (23-300) U/L Urine Dip Bedside Urine Glucose Negative Bedside Urine Bilirubin - Negative Bedside Urine Ketone - Negative Urine Specific [place] 1.025 Bedside Urine Occult Blood ++ Bedside Urine pH 6.0 Bedside Urine Protein ++ 100 Bedside Urine Urobilinogen - Negative Bedside Urine Nitrite - Negative Bedside Urine Leukocytes - Negative Esterase Imaging Data Chest x-ray: Radiologist's Impression: PROCEDURE: XR CHEST 1V INDICATIONS: dyspnea TECHNIQUE: One view of the chest was acquired. COMPARISON: [facility], , XR CHEST 1V, 10/23/2024, 11:27. FINDINGS: Surgical changes and devices: None. Lungs and pleura: Lungs are clear. No pleural effusions or pneumothorax. Mediastinum: Mediastinal contours appear normal. Heart size is normal. Bones and chest wall: No suspicious bony lesions. Overlying soft tissues appear unremarkable. IMPRESSION: No acute cardiopulmonary abnormality is seen. Approved by: Hernan Churchill M.D. on 06/13/2025 at 7:51 ECG Data Attestation: I personally reviewed and interpreted this ECG as follows: Prior ECG tracings: available for review Interpretation: Normal sinus rhythm rate 83 PA interval 150 QRS [address] changes Q-wave MDM Narrative Medical decision making narrative: MDM CC: Shortness of breath Complicating co-morbidities: Asthma hypertension hypothyroid Data collected from: Patient EMS nursing Medical records reviewed: Previous ED visits last 1 in October or chest pain Differential considered: Has not in exacerbation, CHF, acute coronary syndrome, pneumonia, pulmonary embolism Exam documented above, pertinent findings include: Alert 75-year-old female wheezing throughout mild respiratory distress after multiple treatments no peripheral edema Lab Test results independently reviewed as above. Pertinent findings: CBC no abnormality CMP no electrolyte abnormality no AGAPITO Troponin negative, BNP negative Bilirubin liver enzymes and lipase all within normal limit D-dimer 405 Independently reviewed EKG as above Sinus rhythm without ischemia Imaging studies independently reviewed: Chest x-ray no acute cardiopulmonary process Consultations: [id number] Dr. Cunningham updated patient's symptoms test results agrees with admission Treatments: Albuterol and DuoNeb Re-evaluations: Patient is breathing better after DuoNeb here in the emergency department but still requiring oxygen. Discussion: Patient is 75-year-old female history of asthma presenting today with increasing shortness of breath. She is hypoxic upon arrival breathing status does not improve with bronchodilators and steroids however still requiring 1-2 L. Blood work is overall reassuring without leukocytosis chest x-ray does not show evidence of pneumonia. D-dimer is less than 500 this is unlikely to be a pulmonary embolism also improvement with bronchodilators suggest more of an asthma and reactive airway process rather than PE. No evidence of congestive heart failure troponin is negative and EKGs in within normal limits. Discharge Plan Departure Patient Disposition: Admitted as Observation Clinical Impression: Asthma exacerbation Admit Date/Time: 06/13/25 08:54 Admit Provider: Aramis Cunningham
[2025-06-13 07:11] LABS: NT-proBNP (BNP-Adult 18+) 40 pg/mL (<125); Troponin I < 0.012 ng/mL (0.01-0.034)
[2025-06-13] MEDS: ALBUTEROL 2.5 MG/3 ML NEB (ADULT) INH (07:42)
[2025-06-13] MEDS: AZITHROMYCIN 500 MG in DEXTROSE 5% IN WATER 250 ML 250 MG IV (11:44)
[2025-06-13] MEDS: ACETAMINOPHEN 325 MG TABLET PO ×2 (11:47→20:06)
--- NOTE | 2025-06-13 12:09 | PM.HP.1 ---
History of Present Illness History of Present Illness Date Patient Seen: 06/13/25 Time Patient Seen: 09:00 Chief complaint: Diff breathing Narrative: CC: SOB Pt with hx of COPD/Asthma presented to ED via EMS with acutely worsening SOB with difficulty breathing worsening over last 2 weeks. Got duonebs decadron and oxygen feeling a bit better admits she has not been taking her flovent or singulair will be admitting for obs and RT treatment. Otherwise feels ok except breathing. PFSH Medical History Cough Surgical History Status post appendectomy Status post colonoscopy Social History household members: spouse Smoking Status: Former smoker Meds Home Medications and Allergies Home Medications ?Medication ?Instructions ?Recorded ?Confirmed ?Type citalopram 10 mg tablet 10 mg PO DAILY 01/11/19 06/13/25 History hydrochlorothiazide 25 mg tablet 25 mg PO DAILY 01/11/19 06/13/25 History losartan 25 mg tablet 25 mg PO DAILY 01/11/19 06/13/25 History trazodone 50 mg tablet 25 - 50 mg PO ONCE PM 05/02/25 06/13/25 History albuterol sulfate 90 mcg/actuation 2 puff inhalation Q4H PRN wheezing 06/13/25 06/13/25 History aerosol inhaler fluticasone propionate 110 2 puff inhalation BID 06/13/25 06/13/25 History mcg/actuation HFA aerosol inhaler levothyroxine 100 mcg tablet 100 mcg PO QAM 06/13/25 06/13/25 History montelukast 10 mg tablet 10 mg PO ONCE PM 06/13/25 06/13/25 History valacyclovir 1 gram tablet 1,000 mg PO DAILY 06/13/25 06/13/25 History Allergies Allergy/AdvReac Type Severity Reaction Status Date / Time latex Allergy Severe Rash Verified 06/13/25 06:50 Sulfa (Sulfonamide Allergy Unknown Doesn't Verified 06/13/25 06:50 Antibiotics) remember hydromorphone AdvReac Severe N&V Verified 06/13/25 06:50 meperidine AdvReac Severe N&V Verified 06/13/25 06:50 Review of Systems Review of Systems Narrative: All systems reviewed and negative except as otherwise documented in HPI Exam Vital Signs (past 8 hours): - 06/13/25 06:50 06/13/25 06:51 06/13/25 07:43 Temperature 97.7 F Pulse Rate 82 81 87 Respiratory Rate 23 20 20 Blood Pressure 152/81 H Pulse Oximetry 85 L 90 L 93 Oxygen Delivery Method Room Air Nasal Cannula Nasal Cannula Oxygen Flow Rate 2 2 Fraction of Inspired Oxygen 28 28 06/13/25 08:36 06/13/25 09:00 06/13/25 09:00 Temperature Pulse Rate 94 H 82 Respiratory Rate Blood Pressure 130/63 Pulse Oximetry 92 91 Oxygen Delivery Method Oxygen Flow Rate Fraction of Inspired Oxygen 06/13/25 09:14 06/13/25 09:14 06/13/25 09:30 Temperature Pulse Rate 95 H Respiratory Rate Blood Pressure 173/81 H 146/76 H Pulse Oximetry 91 Oxygen Delivery Method Oxygen Flow Rate Fraction of Inspired Oxygen 06/13/25 09:30 06/13/25 10:00 06/13/25 10:00 Temperature Pulse Rate 92 H 99 H Respiratory Rate Blood Pressure 121/69 Pulse Oximetry 91 92 Oxygen Delivery Method Oxygen Flow Rate 2 Fraction of Inspired Oxygen 06/13/25 10:30 06/13/25 10:31 06/13/25 10:31 Temperature Pulse Rate 91 H 91 H Respiratory Rate Blood Pressure 108/58 L Pulse Oximetry 92 92 Oxygen Delivery Method Oxygen Flow Rate Fraction of Inspired Oxygen 06/13/25 11:00 06/13/25 11:00 06/13/25 11:35 Temperature Pulse Rate 89 81 Respiratory Rate 22 16 Blood Pressure 111/70 Pulse Oximetry 92 93 Oxygen Delivery Method Nasal Cannula Nasal Cannula Oxygen Flow Rate 2 2 Fraction of Inspired Oxygen 28 Fraction of Inspired Oxygen 28 SaO2/FiO2 Ratio 332 Oxygen Delivery Method Nasal Cannula Oxygen Flow Rate 2 Narrative Exam Narrative: [place] [facility] [place] Other: scant scattered wheezes, moving air well speaking in full sentences Cardio Other: regular rate and rhythm s1/s2 GI Other: soft nontender nondistended active bowel sounds Neuro Other: alert awake oriented x3 moving all limbs Objective Labs 06/13/25 06:41 06/13/25 06:41 Labs: Laboratory Results - last 24 hr 06/13/25 06:41 WBC 7.7 RBC 4.60 Hgb 16.1 H Hct 46.1 H MCV 100.4 H MCH 35.0 H MCHC 34.9 RDW 13.4 Plt Count 153 Neut % (Auto) 49.4 L Lymph % (Auto) 27.6 [place] % (Auto) 8.9 Eos % (Auto) 13.2 H Baso % (Auto) 0.9 Neut # (Auto) 3800 Lymph # (Auto) 2100 [place] # (Auto) 700 Eos # (Auto) 1000 H Baso # (Auto) 100 D-Dimer 405 Sodium 139 Potassium 3.2 L Chloride 107 Carbon Dioxide 24 BUN 15 Creatinine 0.77 Estimated GFR > 60 BUN/Creatinine Ratio 19.5 Glucose 112 H Calcium 8.9 Magnesium 3.5 H Total Bilirubin 0.7 AST 31 ALT 18 Alkaline Phosphatase 67 Troponin I < 0.012 NT-Pro-B Natriuret Pep 40 Total Protein 7.5 Albumin 4.3 Globulin 3.2 Albumin/Globulin Ratio 1.3 Lipase 156 Assessment & Plan Assessment & Plan narrative: #Acute COPD/Asthma exacerbation continue duonebs, RT eval/tx resume flovent/montelukast monitor with iv steroids and azithromycin #primary hypertension stable continue home hctz and losartan #hypothyroid stable continue home meds #MDD stable continue home citalopram dispo: admit obs for breathing treatments etc PCP: [facility] Diet: general MDM: 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
[2025-06-13 12:27] LABS: Coronavirus NL 63 Not Detected (Not Detect); SARS- CoV-2 Not Detected (Not Detecte)
[2025-06-13] MEDS: LOSARTAN 25 MG TABLET PO (13:01)
[2025-06-13] MEDS: CITALOPRAM 10 MG TABLET PO (13:01)
[2025-06-13 13:06] LABS: MRSA (Nasal) PCR NOT DETECTED (Not Detect)
[2025-06-13] MEDS: BENZOCAINE/MENTHOL 1 LOZ PKT 1 EACH PO ×3 (14:06→20:06)
[2025-06-13] MEDS: methylPREDNISolone succ 40 MG/ML VIAL IV ×2 (14:06→21:45)
--- NOTE | 2025-06-13 16:18 | PC.NURSE ---
Admit Note Pt arrived to room 228 from ER, able to walk self from stretcher to bed without issue, steady on feet, no assistive devices needed. Alert and oriented x4. On 2L NC with SpO2 94%, SOB with exertion, nonproductive cough present. Reports 8/ headache, Dr. Cunningham notified and tylenol administered to pt per MD order, pt reported ineffective. Message sent to Dr. Cunningham requesting further pain medication and something for pt's cough (per pt request), awaiting orders at this time. Oriented to room on arrival and to call light/bed/tv controls. Glasses on patient, clothing and shoes with pt. Call light within reach, using appropriately to make needs known.
[2025-06-13] MEDS: guaiFENesin/DM 200 mg/20 mg/10 mL SYRUP 5 ML PO (18:22)
[2025-06-13] MEDS: BUDESONIDE 0.5 MG/2 ML NEB INH (19:58)
[2025-06-13] MEDS: MONTELUKAST 10 MG TABLET PO (20:06)
[2025-06-14] MEDS: BENZOCAINE/MENTHOL 1 LOZ PKT 1 EACH PO ×2 (00:42→12:54)
[2025-06-14] MEDS: guaiFENesin/DM 200 mg/20 mg/10 mL SYRUP 5 ML PO (00:42)
[2025-06-14] MEDS: LEVOTHYROXINE 100 MCG TABLET PO (06:45)
[2025-06-14] MEDS: methylPREDNISolone succ 40 MG/ML VIAL IV (06:45)
[2025-06-14] MEDS: ACETAMINOPHEN 325 MG TABLET PO ×2 (06:53→12:54)
--- NOTE | 2025-06-14 08:41 | PM.PN.1 ---
Subjective Subjective Date Patient Seen: 06/14/25 Time Patient Seen: 08:41 Interval history: Patient seen in [facility] for evaluation of acute respiratory failure. Patient overall is feeling better this morning. Having no chest pain or shortness a breath. Feels like she is breathing better. Last 2 weeks have been very difficult and she feels like things are maybe slightly better this morning. Less cough. Less short of breath. Still requiring oxygen. No other changes. Complaining of headaches this morning. No numbness no tingling no difficulty moving. Responded to Tylenol hydrocodone Exam Vital Signs (past 8 hours): Fraction of Inspired Oxygen 28 SaO2/FiO2 Ratio 335 Oxygen Delivery Method Nasal Cannula Oxygen Flow Rate 2 Narrative Exam Narrative: Alert female in no acute distress breathing pretty comfortably HEENT exam pupils are equally responsive to light EOMI is intact lungs with diffuse decreased breath sounds occasional wheeze and rhonchi. Heart is regular rate and rhythm abdomen is soft positive bowel sounds nontender extremities without cyanosis clubbing edema neurologic exam is intact Objective Labs 06/13/25 06:41 06/13/25 06:41 Labs: Laboratory Results - last 24 hr 06/13/25 06/13/25 11:28 11:29 Nasal Screen MRSA (PCR) Not detected Chlamy pneumoniae PCR Not detected Adenovirus (PCR) Not detected B. pertussis DNA (PCR) Not detected B.parapertussis DNA PCR Not detected Coronavirus OC43 (PCR) Not detected Coronavirus HKU1 (PCR) Not detected Coronavirus 229E (PCR) Not detected SARS-CoV-2 (PCR) Not detected Coronavirus NL63 (PCR) Not detected Human Metapneumovir PCR Not detected Influenza Type A (PCR) Not detected Influenza Type B (PCR) Not detected M. pneumoniae (PCR) Not detected Parainfluenza 1 (PCR) Not detected Parainfluenza 2 (PCR) Not detected Parainfluenza 3 (PCR) Not detected Parainfluenza 4 (PCR) Not detected RSV (PCR) Not detected Entero/Rhino (PCR) Not detected PFSH Medical History Cough Surgical History Status post appendectomy Status post colonoscopy Social History household members: spouse Smoking Status: Former smoker alcohol intake: former Assessment & Plan Assessment & Plan narrative: Acute respiratory failure. Probably secondary to possible asthma exacerbation. It is interesting because the patient does not feel as if she is ever totally been diagnosed with asthma but is on montelukast and inhalers at home so probably does have the diagnosis just has not really been totally given that. Whether this is secondary to COPD or asthma she definitely is tight and requiring oxygen. Appears to be minimal at this time. And I am hoping we get off it today. We will continue the nebulization. Will switch to oral prednisone and continue Zithromax. Probably not infected given her presentation but will cover. Asthma exacerbation. Doing well. Seems to be slowly improving. Switch to oral prednisone discontinue IV continue other therapy possible home tomorrow. Will see how she does. Whether or not she gets off her oxygen or not. Hypokalemia. Potassium 3.2 yesterday in the emergency room no potassium be given. Not repeated this morning will get lab work this morning and give potassium as needed. Rechecked again tomorrow. Hypothyroidism stable. Primary hypertension stable. Depression. On citalopram we will continue Full code. Disposition. Hopefully home tomorrow. 55 minutes spent with chart review and nursing patient dictation orders Time-Based Coding :: [TOTAL MINUTES] spent with patient and on the chart (including review of chart, obtaining history, exam, reviewing outside data, placing orders, documenting exam and treatment plan, and counseling patient) on [DATE]. Quality VTE Deep Vein Thrombosis/Pulmonary Embolism Present on Admission: No
[2025-06-14] MEDS: BUDESONIDE 0.5 MG/2 ML NEB INH ×2 (08:55→19:57)
[2025-06-14] MEDS: ALBUTEROL/IPRATROPIUM 3 ML AMPUL INH ×2 (08:55→19:58)
[2025-06-14 08:57] VITALS: BP 138/60; PULSE 63; RESP 18; TEMP 36.2; O2SAT 95
[2025-06-14 09:04] VITALS: PULSE 80; RESP 16; O2SAT 93
[2025-06-14 09:15] LABS: Alanine Aminotransferase 19 IU/L (<35); Albumin 4.3 g/dL (3.5-5.0); Albumin Globulin Ratio 1.4 (1.0-2.8); Alkaline Phosphatase 60 U/L (38-126); Blood Urea Nitrogen 20 mg/dL (7-17); Calcium 8.8 mg/dL (8.4-10.2); Carbon Dioxide 23 mmol/L (22-32); Chloride 99 mmol/L (98-107); Estimated Glomerular Filt Rate > 60 mL/min (>60); Globulin 3.1 g/dL (1.7-4.1); Glucose 131 mg/dL (70-99); HEMOLYSIS < 15 (0-50); Potassium 3.8 mmol/L (3.4-5.1); Sodium 132 mmol/L (137-145); Total Protein 7.4 g/dL (6.3-8.2)
[2025-06-14] MEDS: LOSARTAN 25 MG TABLET PO (09:48)
[2025-06-14] MEDS: CITALOPRAM 10 MG TABLET PO (09:48)
[2025-06-14] MEDS: AZITHROMYCIN 500 MG in DEXTROSE 5% IN WATER 250 ML 250 MG IV (12:54)
--- NOTE | 2025-06-14 13:08 | CM.DANOTE ---
DCP Assessment note pt is a 75yo F admitted with COPD/asthma exacerbation. DENTAL ASSISTANT reviewed EMR. per chat, was on 2ltrs O2 but now room air. getting breathing tx. from [facility], anticipate dc home tomorrow no needs. DENTAL ASSISTANT met with pt in room. lives indep with spouse in [place]. no DME. ambulates indep. no O2 at baseline. declines at DCP/CM needs at this time. P: plan for home tomorrow with OP f/u as needed and spouse support. no needs likely. will continue to follow as needed for DCP coordination PATRICK Joy Discharge Planning/Care Management CM Discharge Assessment Start: 06/13/25 09:15 Freq: Status: Active Protocol: Document 06/14/25 13:07 [facility] (Rec: 06/14/25 13:08 [id number]) Discharge Planning Assessment Assigned Discharge PATRICK Jasso Pediatric Dietician Provider [place] Insurance Medicare DPOA/Assigned cheri Maradiaga Designee Name Contact Information [phone] Advance Directives? Yes: POLST Advance Directives No on File History Provided By Patient Prior Living House Arrangements Household Members spouse Type of Drives own vehicle transporation used prior to admit Independent with ADL Yes 's Is patient alert and Yes oriented? Discharge Plan Home Referrals Initiated None needed Review Status In Process Please Provide Date 06/14/25 Initial DC Assessment Was Performed Next Review Type Continued Stay Review
--- NOTE | 2025-06-14 13:53 | DI.CT.S_ITS ---
PROCEDURE: CT HEAD/BRAIN WO CON INDICATIONS: persistent headache TECHNIQUE: Noncontrast 4.5 mm thick angled axial sections acquired from the foramen magnum to the vertex, with coronal and sagittal reformats. For radiation dose reduction, the following was used: automated exposure control, adjustment of mA and/or kV according to patient size. COMPARISON: [facility], , MR HEAD/BRAIN WO CON, 05/14/2025, 9:30. FINDINGS: Image quality: Streak artifact can be seen through the skull base. CSF spaces: Basal cisterns are patent. No extra-axial fluid collections. The ventricles are symmetric in size and shape. Brain: No intracranial bleeds or mass effect. There is cerebral volume loss, with resultant ventricular and sulcal prominence. There are periventricular and deep white matter chronic small vessel ischemic changes. There is intracranial internal carotid artery atherosclerosis. Skull and face: Calvarium and visualized facial bones appear intact, without suspicious lesions. Sinuses: Visualized sinuses and mastoids are clear. IMPRESSION: Unremarkable intracranial study, without an imaging explanation found for the patient's presenting history of headache. To the limits of this noncontrast study, no findings of intracranial masses or mass effect can be seen. No acute intracranial hemorrhage is seen. Dictated by: Vikas Andrews M.D. on 06/14/2025 at 13:25 Approved by: Vikas Andrews M.D. on 06/14/2025 at 13:26
[2025-06-14] MEDS: KETOROLAC 30 MG/ML VIAL 15 MG IV ×2 (14:49→20:18)
[2025-06-14 20:00] VITALS: PULSE 84; RESP 18; O2SAT 95
[2025-06-14] MEDS: MONTELUKAST 10 MG TABLET PO (20:19)
[2025-06-14 20:33] VITALS: BP 133/63; PULSE 71; RESP 18; TEMP 36.6; O2SAT 93
[2025-06-15 04:13] LABS: Alanine Aminotransferase 16 IU/L (<35); Albumin 3.4 g/dL (3.5-5.0); Albumin Globulin Ratio 1.2 (1.0-2.8); Alkaline Phosphatase 55 U/L (38-126); Blood Urea Nitrogen 27 mg/dL (7-17); Calcium 8.3 mg/dL (8.4-10.2); Carbon Dioxide 26 mmol/L (22-32); Chloride 94 mmol/L (98-107); Estimated Glomerular Filt Rate > 60 mL/min (>60); Globulin 2.8 g/dL (1.7-4.1); Glucose 119 mg/dL (70-99); HEMOLYSIS 33 (0-50); Potassium 3.5 mmol/L (3.4-5.1); Sodium 126 mmol/L (137-145); Total Protein 6.2 g/dL (6.3-8.2)
--- NOTE | 2025-06-15 06:50 | PC.NURSE ---
warehouse shift supervisor RN note pt rested well overnight, up independently to bathroom, mod headache at HS that resolved with toradol, lungs decreased with occasional wheeze, cough improved slightly, meds and labs as ordered, call antonio within reach, care ongoing
[2025-06-15] MEDS: LEVOTHYROXINE 100 MCG TABLET PO (08:23)
[2025-06-15] MEDS: LOSARTAN 25 MG TABLET PO (08:24)
[2025-06-15] MEDS: KETOROLAC 30 MG/ML VIAL 15 MG IV (08:24)
[2025-06-15] MEDS: POTASSIUM CHLORIDE 20 MEQ TAB PO (08:24)
[2025-06-15] MEDS: CITALOPRAM 10 MG TABLET PO (08:24)
[2025-06-15] MEDS: guaiFENesin/DM 200 mg/20 mg/10 mL SYRUP 5 ML PO (08:25)
[2025-06-15] MEDS: ALBUTEROL/IPRATROPIUM 3 ML AMPUL INH (08:53)
[2025-06-15] MEDS: BUDESONIDE 0.5 MG/2 ML NEB INH (08:53)
[2025-06-15 08:55] VITALS: PULSE 65; RESP 16; O2SAT 94
--- NOTE | 2025-06-15 10:24 | P.DS_ITS ---
History of Present Illness History of Present Illness Chief complaint: Diff breathing Narrative: CC: SOB Feeling much better breathing fine on room air ready to go home will f/up with PCP - sending dc scripts via outside EMR Discharge Providers Provider Date of admission: 06/14/25 11:05 Discharge Date: 06/15/25 Primary care physician: Aramis Cunningham MD Discharge provider: Aramis Cunningham MD Summary Hospital Course Discharge Diagnosis: #Acute respiratory failure #asthma exacerbation #Hypokalemia #Hypothyroidism #Primary hypertension #Depression Hospital Course: Pt with hx of COPD/Asthma presented to ED via EMS with acutely worsening SOB with difficulty breathing worsening over last 2 weeks. Got duonebs decadron and oxygen felt a bit better admitted she had not been taking her flovent or singulair, was admitted for obs and RT treatments - did well with duonebs steroids and azithromycin will provide oral courses - resume prior treatments adn f/up with PCP. Status at Discharge Cognitive/behavioral status at discharge: at baseline, oriented Functional status at discharge: independent ambulation Overall status at discharge: patient is progressing back to baseline Exam Vital Signs (past 8 hours): - 06/15/25 08:55 Pulse Rate 65 Respiratory Rate 16 Pulse Oximetry 94 Oxygen Delivery Method Room Air Fraction of Inspired Oxygen 21 Fraction of Inspired Oxygen 21 SaO2/FiO2 Ratio 438 Oxygen Delivery Method Room Air Oxygen Flow Rate 0 Const Other: well developed well nourished Resp Other: clear to auscultation bilaterally on room air Cardio Other: regular rate s1/s2 no pedal edema GI Other: normal bowel sounds nontender Neuro Other: alert oriented moving all limbs Objective Labs 06/13/25 06:41 06/15/25 03:50 Labs: Laboratory Results - last 24 hr 06/15/25 03:50 Sodium 126 L Potassium 3.5 Chloride 94 L Carbon Dioxide 26 BUN 27 H Creatinine 0.75 Estimated GFR > 60 BUN/Creatinine Ratio 36.0 H Glucose 119 H Calcium 8.3 L Total Bilirubin 0.3 AST 23 ALT 16 Alkaline Phosphatase 55 Total Protein 6.2 L Albumin 3.4 L Globulin 2.8 Albumin/Globulin Ratio 1.2 [facility] Medical History Cough Surgical History Status post appendectomy Status post colonoscopy Social History household members: spouse Smoking Status: Former smoker alcohol intake: former Discharge Assessment & Plan Assessment and Plan Assessment: #Acute respiratory failure #asthma exacerbation Improved on IV steroids and duonebs. Resume montelukast and flovent with oral steroid taper, f/up with PCP finish out zithromax course. doing well on room air today. #Hypokalemia repleted, stable #Hypothyroidism continue home meds, stable. #Primary hypertension continue home meds, stable. #Depression stable continue citalopram Code: full Dispo: home PCP: Marisa Discharge Plan Discharge Plan Patient Disposition: Home Nursing Discharge Comment: discharge meds prednisone azithro [facility] outside EMR Discharge orders & Medications Prescriptions: Continued trazodone 50 mg tablet 25 - 50 mg PO ONCE PM citalopram 10 mg Tablet 10 mg PO DAILY losartan 25 mg Tablet 25 mg PO DAILY hydrochlorothiazide 25 mg Tablet 25 mg PO DAILY valacyclovir 1 gram tablet 1,000 mg PO DAILY levothyroxine 100 mcg tablet 100 mcg PO QAM montelukast 10 mg tablet 10 mg PO ONCE PM albuterol sulfate 90 mcg/actuation HFA aerosol inhaler 2 puff inhalation Q4H PRN (Reason: wheezing) fluticasone propionate 110 mcg/actuation HFA aerosol inhaler 2 puff inhalation BID Follow up/Referrals: Aramis Cunningham MD [Primary Care Provider, Family Practice] Visit Report/Discharge Packet Instructions: DI for Asthma -- Adult, DI for Urinary Tract Infection (UTI), Prednisone, Azithromycin Stand Alone Forms: Patient Portal/API, Stroke Signs & Symptoms Discharge Data Primary Care Provider: Aramis Cunningham Quality VTE Deep Vein Thrombosis/Pulmonary Embolism Present on Admission: No
== END 2025-06-15 11:50 | disposition home or self-care (01) | DRG 202 ==
LOC: ED 07:28 → AC 08:55 → ICU 11:05
PROVIDERS: Emergency Medicine; Family Medicine; Admitting Provider Family Medicine; Emergency Provider Emergency Medicine; Family Provider Family Medicine; PCP Family Medicine; Referring Provider Emergency Medicine; Visit Provider Family Medicine
DX: J45.901 Unspecified asthma with (acute) exacerbation (principal); J96.01 Acute respiratory failure with hypoxia; I10 Essential (primary) hypertension; E03.9 Hypothyroidism, unspecified; F32.9 Major depressive disorder, single episode, unspecified; E87.6 Hypokalemia; J44.89 Other specified chronic obstructive pulmonary disease; Z87.891 Personal history of nicotine dependence; Z79.890 Hormone replacement therapy
CPT/HCPCS: 36415; 70450; 71045; 80053; 81003; 83690; 83735; 83880; 84484; 85025; 85379; 87633; 87797; 93005; 94640; 94762; 99284; 99285; G0378; J1885; J2919; J7060; J7613